=== PATIENT | male | born 1970 | race Caucasian/White ===

== ENCOUNTER 2019-05-14 07:31 | Inpatient (IN) | payer OTHER ==
[2019-05-14] MEDS ORDERED: SODIUM CHLORIDE 0.9% 1,000 ML IV STA (07:57)
[2019-05-14] MEDS ORDERED: ONDANSETRON 4 MG/2 ML VIAL IVP STA (07:57)
[2019-05-14] MEDS ORDERED: MORPHINE SULFATE 4 MG/ML SYRINGE IV STA (07:57)
[2019-05-14] MEDS ORDERED: FAMOTIDINE 20 MG/2 ML VIAL IV STA (07:58)
[2019-05-14] MEDS ORDERED: methylPREDNISolone SOD SUCCI 125 MG/2 ML VIAL IV STA (07:58)
[2019-05-14] MEDS ORDERED: diphenhydrAMINE 50 MG/ML 1 ML VIAL IVP STA (07:58)
[2019-05-14 08:33] LABS: Appearance,Urine Clear (Clear); Bilirubin,Urine Negative (Negative); Blood,Urine Moderate (Negative); Color,Urine Yellow; Glucose,Urine (UA) Negative (Negative); Ketones,Urine 1+ (Negative); Leukocyte Esterase,Urine Negative (Negative); Mucus,Urine Rare /hpf; Nitrite,Urine Negative (Negative); PH, Urine 7.5 (5.0-8.0); Protein,Urine 3+ (Negative); RBC,Urine 86 /hpf (0-5); Specific Gravity,Urine 1.014 (1.001-1.035); Urobilinogen,Urine <2.0 mg/dL (<2.0); WBC,Urine 1 /hpf (0-5)
[2019-05-14 08:38] LABS: Basophils % (A) 0 %; Eosinophils # (A) 0.1 k/uL (0-0.7); Eosinophils % (A) 1 %; HCT 46.5 % (39.0-53.0); HGB 15.5 gm/dL (13.0-17.5); Lymphocytes % (A) 8 %; MCH 31.5 pg (25.0-35.0); MCHC 33.4 g/dL (31.0-37.0); MCV 94.3 fL (80.0-100.0); Mean Platelet Volume 6.8; Monocytes # (A) 0.9 k/uL (0-1.0); Monocytes % (A) 8 %; Neutrophils # (A) 10.2 k/uL (1.3-7.7); Neutrophils % (A) 83 %; Platelet Count 238 k/uL (150-450); RBC 4.93 m/uL (4.30-5.90); RDW 13.5 % (11.5-15.5); WBC 12.4 k/uL (3.8-10.6)
[2019-05-14 08:39] LABS: ALT 30 U/L (21-72); AST 41 U/L (17-59); African American GFR (CKD) >90 (>60 ml/min/1.73 sqM); Albumin 4.2 g/dL (3.5-5.0); Alkaline Phosphatase 98 U/L (38-126); Amylase 53 U/L (30-110); Anion Gap 9 mmol/L; Blood Urea Nitrogen 17 mg/dL (9-20); Calcium 9.8 mg/dL (8.4-10.2); Carbon Dioxide 26 mmol/L (22-30); Chloride 102 mmol/L (98-107); Glucose 106 mg/dL (74-99); Lipase 60 U/L (23-300); Potassium 4.3 mmol/L (3.5-5.1); Sodium 137 mmol/L (137-145); Total Bilirubin 1.5 mg/dL (0.2-1.3); Total Protein 7.4 g/dL (6.3-8.2)
[2019-05-14] MEDS ORDERED: MORPHINE SULFATE 4 MG/ML SYRINGE IVP STA (08:43)
--- NOTE | 2019-05-14 08:46 | ED ---
Abdominal Pain HPI - General Chief Complaint: Abdominal Pain Stated Complaint: lower abdominal pain Time Seen by Provider: 05/14/19 07:50 Source: patient, RN notes reviewed Mode of arrival: ambulatory Limitations: no limitations - History of Present Illness Initial Comments: 48-year-old male presents emergency Department with chief complaint of abdominal pain. Patient states started last night worsened today. Patient states she has cramping, bloating is pending. Patient felt that he was constipated so he drinks multiple disease lactose intolerant he states he did have some diarrhea with no relief of symptoms. Patient has no dysuria no hematuria. Patient states that the pain is primarily lower abdomen. He has had a prior left inguinal hernia repair. He denies fever, chills, chest pain or shortness of breath. Patient states nothing really makes the pain feel better or worse at this time. - Related Data Home Medications Medication Instructions Recorded Confirmed Aspirin EC [Ecotrin] 325 mg PO DIRECTED 05/14/19 05/14/19 Cholecalciferol [Vitamin D3 (25 1,000 unit PO DAILY 05/14/19 05/14/19 Mcg = 1000 Iu)] Cyanocobalamin [Vitamin B-12] 500 mcg PO DAILY 05/14/19 05/14/19 Ibuprofen [Motrin Ib] 400 - 600 mg PO Q6H PRN 05/14/19 05/14/19 Omeprazole 20 mg PO DAILY 05/14/19 05/14/19 Allergies Allergy/AdvReac Type Severity Reaction Status Date / Time ciprofloxacin [From Cipro] Allergy Unknown Verified 05/14/19 08:38 Iodinated Contrast- Oral and Allergy Unknown Verified 05/14/19 08:38 IV Dye lactose AdvReac Unknown Verified 05/14/19 08:39 Review of Systems ROS Statement: Those systems with pertinent positive or pertinent negative responses have been documented in the HPI. ROS Other: All systems not noted in ROS Statement are negative. Past Medical History Additional Past Medical History / Comment(s): barrets esophagus History of Any Multi-Drug Resistant Organisms: None Reported Past Surgical History: Hernia Repair Past Psychological History: No Psychological Hx Reported Smoking Status: Current every day smoker Past Alcohol Use History: Daily Past Drug Use History: None Reported General Exam Limitations: no limitations General appearance: alert, in no apparent distress Head exam: Present: atraumatic, normocephalic, normal inspection Eye exam: Present: normal appearance, PERRL, EOMI. Absent: scleral icterus, conjunctival injection, periorbital swelling ENT exam: Present: normal exam, mucous membranes moist Neck exam: Present: normal inspection, full ROM. Absent: tenderness, meningismus, lymphadenopathy Respiratory exam: Present: normal lung sounds bilaterally. Absent: respiratory distress, wheezes, rales, rhonchi, stridor Cardiovascular Exam: Present: regular rate, normal rhythm, normal heart sounds. Absent: systolic murmur, diastolic murmur, rubs, gallop, clicks GI/Abdominal exam: Present: soft, tenderness (Moderate lower abdominal tenderness), guarding (Voluntary), normal bowel sounds. Absent: distended, r ebound, rigid Back exam: Absent: CVA tenderness (R), CVA tenderness (L) Neurological exam: Present: alert, oriented X3, CN II-XII intact Skin exam: Present: warm, dry, intact, normal color. Absent: rash Course Vital Signs 05/14/19 07:41 Temperature 98.5 F Pulse Rate 99 Respiratory 18 Rate Blood Pressure 143/92 O2 Sat by Pulse 98 Oximetry Medical Decision Making - Medical Decision Making 48-year-old male presented to emergency department for abdominal pain, cramping. Patient had lab work and CT CT shows perforated diverticulum. Patient has no history of diverticulitis. Patient was started on Zosyn. - Lab Data Result diagrams: 05/14/19 08:05 05/14/19 08:05 Lab Results 05/14/19 05/14/19 05/14/19 Range/Units 08:05 08:05 08:05 WBC 12.4 H (3.8-10.6) k/uL RBC 4.93 (4.30-5.90) m/uL Hgb 15.5 (13.0-17.5) gm/dL Hct 46.5 (39.0-53.0) % MCV 94.3 (80.0-100.0) fL MCH 31.5 (25.0-35.0) pg MCHC 33.4 (31.0-37.0) g/dL RDW 13.5 (11.5-15.5) % Plt Count 238 (150-450) k/uL Neutrophils % 83 % Lymphocytes % 8 % Monocytes % 8 % Eosinophils % 1 % Basophils % 0 % Neutrophils # 10.2 H (1.3-7.7) k/uL Lymphocytes # 1.0 (1.0-4.8) k/uL Monocytes # 0.9 (0-1.0) k/uL Eosinophils # 0.1 (0-0.7) k/uL Basophils # 0.0 (0-0.2) k/uL Sodium 137 (137-145) mmol/L Potassium 4.3 (3.5-5.1) mmol/L Chloride 102 (98-107) mmol/L Carbon Dioxide 26 (22-30) mmol/L Anion Gap 9 mmol/L BUN 17 (9-20) mg/dL Creatinine 1.08 (0.66-1.25) mg/dL Est GFR (CKD-EPI)AfAm >90 (>60 ml/min/1.73 sqM) Est GFR (CKD-EPI)NonAf 81 (>60 ml/min/1.73 sqM) Glucose 106 H (74-99) mg/dL Plasma Lactic Acid [place] 1.0 (0.7-2.0) mmol/L Calcium 9.8 (8.4-10.2) mg/dL Total Bilirubin 1.5 H (0.2-1.3) mg/dL AST 41 (17-59) U/L ALT 30 (21-72) U/L Alkaline Phosphatase 98 (38-126) U/L Total Protein 7.4 (6.3-8.2) g/dL Albumin 4.2 (3.5-5.0) g/dL Amylase 53 (30-110) U/L Lipase 60 (23-300) U/L Urine Color Urine Appearance (Clear) Urine pH (5.0-8.0) Ur Specific [place] (1.001-1.035) Urine Protein (Negative) Urine Glucose (UA) (Negative) Urine Ketones (Negative) Urine Blood (Negative) Urine Nitrite (Negative) Urine Bilirubin (Negative) Urine Urobilinogen (<2.0) mg/dL Ur Leukocyte Esterase (Negative) Urine RBC (0-5) /hpf Urine WBC (0-5) /hpf Urine Mucus (None) /hpf 05/14/19 Range/Units 08:05 WBC (3.8-10.6) k/uL RBC (4.30-5.90) m/uL Hgb (13.0-17.5) gm/dL Hct (39.0-53.0) % MCV (80.0-100.0) fL MCH (25.0-35.0) pg MCHC (31.0-37.0) g/dL RDW (11.5-15.5) % Plt Count (150-450) k/uL Neutrophils % % Lymphocytes % % Monocytes % % Eosinophils % % Basophils % % Neutrophils # (1.3-7.7) k/uL Lymphocytes # (1.0-4.8) k/uL Monocytes # (0-1.0) k/uL Eosinophils # (0-0.7) k/uL Basophils # (0-0.2) k/uL Sodium (137-145) mmol/L Potassium (3.5-5.1) mmol/L Chloride (98-107) mmol/L Carbon Dioxide (22-30) mmol/L Anion Gap mmol/L BUN (9-20) mg/dL Creatinine (0.66-1.25) mg/dL Est GFR (CKD-EPI)AfAm (>60 ml/min/1.73 sqM) Est GFR (CKD-EPI)NonAf (>60 ml/min/1.73 sqM) Glucose (74-99) mg/dL Plasma Lactic Acid [place] (0.7-2.0) mmol/L Calcium (8.4-10.2) mg/dL Total Bilirubin (0.2-1.3) mg/dL AST (17-59) U/L ALT (21-72) U/L Alkaline Phosphatase (38-126) U/L Total Protein (6.3-8.2) g/dL Albumin (3.5-5.0) g/dL Amylase (30-110) U/L Lipase (23-300) U/L Urine Color Yellow Urine Appearance Clear (Clear) Urine pH 7.5 (5.0-8.0) Ur Specific [place] 1.014 (1.001-1.035) Urine Protein 3+ H (Negative) Urine Glucose (UA) Negative (Negative) Urine Ketones 1+ H (Negative) Urine Blood Moderate H (Negative) Urine Nitrite Negative (Negative) Urine Bilirubin Negative (Negative) Urine Urobilinogen <2.0 (<2.0) mg/dL Ur Leukocyte Esterase Negative (Negative) Urine RBC 86 H (0-5) /hpf Urine WBC 1 (0-5) /hpf Urine Mucus Rare H (None) /hpf Disposition Clinical Impression: Diverticulitis of intestine with perforation Disposition: ADMITTED IP TO THIS HOSP Condition: Fair Referrals: None,Stated [Primary Care Provider] - 1-2 days
--- NOTE | 2019-05-14 08:54 | CT ---
EXAMINATION TYPE: CT abdomen pelvis w con DATE OF EXAM: 05/14/2019 COMPARISON: None HISTORY: lower abd pain CT DLP: 1659.2 mGycm Automated exposure control for dose reduction was used. CONTRAST: CT scan of the abdomen pelvis is performed with IV Contrast, patient injected with 100 mL of Isovue 3 00. FINDINGS- LUNG BASES-subsegmental right-sided consolidation heart is prominent.. LIVER/GB- No gross abnormality is appreciated. PANCREAS- No gross abnormality is seen. SPLEEN- No gross abnormality is seen. ADRENALS- No gross abnormality is seen. KIDNEYS/BLADDER- no hydronephrosis or nephrolithiasis. There are multiple hypodense lesions some of w hich are too small to characterize. The largest is seen in the right measuring approximately 3 cm. Th e larger lesions measure less than 10 Hounsfield units compatible simple cysts. Smaller lesions are i ndeterminate but likely related to simple cyst. BOWEL-there is wall thickening and diverticula the sigmoid colon with pericolonic inflammatory change . On image 70 single bubble free intraperitoneal air adjacent: Suggestive of a perforated diverticulu m. No abscess cavity. Prominence the small bowel loops may been the basis of ileus secondary to the i nflammatory changes in pelvis rather than obstruction correlate clinically.. Appendix normal. LYMPH NODES- No greater than 1cm abdominal or pelvic lymph nodes areappreciated. OSSEOUS STRUCTURES-hypertrophic and degenerative changes of the spine. Grade 1 anterolisthesis L3 on L4 with multilevel severe degenerative disc disease. Multilevel Schmorl's OTHER- aorta of normal caliber. No evidence of aneurysm. IMPRESSION- 1. Acute sigmoid diverticulitis with a single bubble of free air noted on image 70 compatible with a perforated diverticulum. No abscess. 2. Bilateral renal lesions most typical of cysts. 3. Dilated small bowel loops most likely the basis of a reactive ileus secondary to inflammatory byrd ges within the pelvis rather than obstruction correlate clinically. 4. Right basilar atelectasis favored over pneumonia.
[2019-05-14] MEDS ORDERED: PIPERACILLIN-TAZOBACTAM 3.375 GM in SODIUM CHLORIDE 0.9% 100 ML IVPB STA (08:56)
[2019-05-14] MEDS ORDERED: ONDANSETRON 4 MG/2 ML VIAL IVP PRN (09:03)
[2019-05-14] MEDS ORDERED: HYDROmorphone 0.5 MG/0.5 ML SYRINGE IVP PRN (09:03)
[2019-05-14] MEDS ORDERED: NALOXONE 0.4 MG/ML 1 ML VIAL IV PRN ×2 (09:03→16:24)
[2019-05-14] MEDS ORDERED: SODIUM CHLORIDE 0.9% 1,000 ML IV SCH (09:15)
[2019-05-14 11:58] VITALS: BMI 33.3
[2019-05-14] MEDS: HYDROmorphone 1 MG/ML 1 ML SYRINGE IVP PRN ×3 (12:08→19:38)
[2019-05-14] MEDS: PIPERACILLIN-TAZOBACTAM 3.375 GM in SODIUM CHLORIDE 0.9% 100 ML IVPB SCH (15:25)
[2019-05-14] MEDS ORDERED: MELATONIN 3 MG TABLET PO PRN (16:24)
[2019-05-14] MEDS ORDERED: ACETAMINOPHEN TAB 325 MG TAB PO PRN (16:24)
[2019-05-14] MEDS ORDERED: LORazepam 2 MG/ML INJ IV PRN ×3 (16:27)
[2019-05-14] MEDS ORDERED: NICOTINE POLACRILEX 2 MG GUM BUCCAL PRN (16:29)
--- NOTE | 2019-05-14 16:44 | P.HPIM ---
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 In the ER he underwent an extensive evaluation. On arrival he is on his blood pressure of 143/92 and a pulse of 99. Laboratory analysis showed a white blood cell count of 12.4 and an elevated bilirubin at 1.5. Urinalysis showed moderate blood in his urine which is chronic per patient. CT abdomen and pelvis showed acute sigmoid diverticulitis with one level of free air as well as bilateral renal cysts. He was started on IV fluids, pain medications, antiemetics, and Zosyn in the emergency department. Dr. Hagan of surgery was contacted. He was admitted for further monitoring and care. Patient seen and examined at bedside. He states yesterday at work he started having sudden onset belly pain. He just starts it is quick and sharp in nature. Initially it happened 3 times over about a hour and a half. Of time. It was in his left and right lower quadrant and suprapubic area. He then went home and continued to have abdominal pressure and bloating. It increased in severity and became more frequent and constant. He then started having some nausea. He had chills overnight last night associated with some rigors. He reports that he is feeling achy all over and the Flu. He woke up at 1 AM and tried to fall back asleep. This morning everything seemed more severe and he came to the hospital. He denies any constipation or diarrhea. He denies any blood in the stool. He has never had a colonoscopy. He states that he has chronic intermittent numbness and tingling in his arms and legs secondary to his relapsing remitting multiple sclerosis. He has no insurance and moved to the area recently. He does not have a PCP. Review of Systems Pertinent positives and negatives as discussed in HPI, a complete review of syst ems was performed and all other systems are negative. 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 - Past Family History Mother Additional Family Medical History / Comment(s): ESRD, lupus, scleroderma, thin basement membrane disease Father Additional Family Medical History / Comment(s): Interstitial lung disease Medications and Allergies Home Medications Medication Instructions Recorded Confirmed Type Aspirin EC [Ecotrin] 325 mg PO DIRECTED 05/14/19 05/14/19 History Cholecalciferol [Vitamin D3 (25 1,000 unit PO DAILY 05/14/19 05/14/19 History Mcg = 1000 Iu)] Cyanocobalamin [Vitamin B-12] 500 mcg PO DAILY 05/14/19 05/14/19 History Ibuprofen [Motrin Ib] 400 - 600 mg PO Q6H PRN 05/14/19 05/14/19 History RX: Omeprazole 20 mg PO DAILY 05/14/19 05/14/19 History Allergies Allergy/AdvReac Type Severity Reaction Status Date / Time ciprofloxacin [From Cipro] Allergy Unknown Verified 05/14/19 08:38 Iodinated Contrast- Oral and Allergy Unknown Verified 05/14/19 08:38 IV Dye lactose AdvReac Unknown Verified 05/14/19 08:39 Physical Exam Osteopathic Statement: *. No significant issues noted on an osteopathic structural exam other than those noted in the History and Physical/Consult. Vitals: Vital Signs Temp Pulse Pulse Resp BP BP Pulse Ox 05/14/19 14:52 98.0 F 57 L 14 129/79 94 L 05/14/19 11:48 98.3 F 71 16 139/88 95 05/14/19 11:46 99.4 F 83 18 124/83 94 L 05/14/19 10:58 83 18 124/83 94 L 05/14/19 10:10 99.4 F 84 18 142/81 94 L 05/14/19 07:41 98.5 F 99 18 143/92 98 Intake and Output 05/14/19 05/14/19 05/14/19 06:59 14:59 22:59 Other: Voiding Method Toilet Toilet Weight 117.934 kg General: non toxic, mild distress, appears at stated age, normal weight Derm: no unusual rashes/lesions no unusual ecchymoses, warm, dry Head: atraumatic, normocephalic, symmetric Eyes: EOMI, no lid lag, anicteric sclera, pupils equal round reactive to light ENT: Nose and ears atraumatic, no thrush, no pharyngeal erythema Neck: No thyromegaly, no cervical lymphadenopathy, trachea midline, supple Mouth: no lip lesion, mucus membranes dry Cardiovascular: S1S2 reg, no murmur, positive posterior tibial pulse bilateral, no edema, capillary refill less than 2 seconds Lungs: CTA bilateral, no rhonchi, no rales , no accessory muscle use Abdominal: soft, + tender to palpation RLQ, LLQ, no guarding, no appreciable organomegaly, hypoactive bowel sounds, no rebound Ext: no gross muscle atrophy, muscle strength 5 out of 5 in all 4 extremities grossly, no contractures, Neuro: CN II-XI grossly intact, light touch intact all 4 extremities, finger to nose within normal limits, Psych: Alert, oriented, appropriate affect Results CBC & Chem 7: 05/14/19 08:05 05/14/19 08:05 Labs: Abnormal Lab Results - Last 24 Hours (Table) 05/14/19 05/14/19 05/14/19 Range/Units 08:05 08:05 08:05 WBC 12.4 H (3.8-10.6) k/uL Neutrophils # 10.2 H (1.3-7.7) k/uL Glucose 106 H (74-99) mg/dL Total Bilirubin 1.5 H (0.2-1.3) mg/dL Urine Protein 3+ H (Negative) Urine Ketones 1+ H (Negative) Urine Blood Moderate H (Negative) Urine RBC 86 H (0-5) /hpf Urine Mucus Rare H (None) /hpf CT scan - abdomen: report reviewed CT scan - pelvis: report reviewed Thrombosis Risk Factor Assmnt - DVT/VTE Prophylaxis DVT/VTE Prophylaxis: Pharmacologic Prophylaxis ordered - Choose All That Apply Any of the Below Risk Factors Present?: Yes Each Factor Represents 1 point: Age 41-60 years, Obesity (BMI >25) Other Risk Factors: No Other congenital or acquired thrombophilia - If yes, enter type in comment: No Thrombosis Risk Factor Assessment Total Risk Factor Score: 2 Thrombosis Risk Factor Assessment Level: Low Risk Assessment and Plan Assessment: Acute sigmoid diverticulitis with microperforation - IVF - Zosyn - surgery consult - NPO: ice chips - pain control - antiemetics - colonoscopy as outpatient Tobacco abuse - cessation - nicotine replacement ETOH abuse - cessation - CIWA - thiamine, folic acid Hematuria - chronic - due to thin basement membrane disease The patient is admitted with an anticipated greater than 2 midnight stay for evaluation of Acute diverticulitis. Surrogate decision-maker: - curt CODE STATUS: Full DVT prophylaxis: Lovenox Discussed with: Patient, nursing, ED physician Anticipated discharge date: 3-[address]: home A total of 65 minutes was spent on the care of this complex patient more than 50% of the time was spent in counseling and care coordination.
[2019-05-14] MEDS: NICOTINE 21MG/24HR PATCH TRANSDERM SCH (17:05)
[2019-05-14] MEDS: THIAMINE 100 MG TAB PO SCH ×2 (17:05→17:08)
[2019-05-14] MEDS: DEXTROSE 5%-0.45% NACL 1,000 ML IV SCH (17:06)
[2019-05-14] MEDS: PANTOPRAZOLE 40 MG/10 ML VIAL IVP SCH (19:38)
[2019-05-15] MEDS: PIPERACILLIN-TAZOBACTAM 3.375 GM in SODIUM CHLORIDE 0.9% 100 ML IVPB SCH ×4 (00:52→23:51)
[2019-05-15] MEDS: HYDROmorphone 1 MG/ML 1 ML SYRINGE IVP PRN ×5 (00:52→20:37)
[2019-05-15] MEDS: DEXTROSE 5%-0.45% NACL 1,000 ML IV SCH ×3 (00:52→15:39)
[2019-05-15] MEDS: THIAMINE 100 MG TAB PO SCH ×2 (07:31→16:33)
[2019-05-15] MEDS: FOLIC ACID 1 MG TAB PO SCH (07:31)
[2019-05-15] MEDS: PANTOPRAZOLE 40 MG/10 ML VIAL IVP SCH (07:31)
[2019-05-15] MEDS: ENOXAPARIN 40 MG/0.4 ML SYRINGE SQ SCH (07:32)
[2019-05-15] MEDS: NICOTINE 21MG/24HR PATCH TRANSDERM SCH (07:32)
[2019-05-15 08:51] LABS: HGB 15.8 gm/dL (13.0-17.5); MCH 32.1 pg (25.0-35.0); MCHC 33.6 g/dL (31.0-37.0); MCV 95.4 fL (80.0-100.0); Mean Platelet Volume 7.3; Platelet Count 272 k/uL (150-450); RBC 4.92 m/uL (4.30-5.90); RDW 14.8 % (11.5-15.5); WBC 18.2 k/uL (3.8-10.6)
[2019-05-15 08:59] LABS: African American GFR (CKD) >90 (>60 ml/min/1.73 sqM); Anion Gap 8 mmol/L; Blood Urea Nitrogen 20 mg/dL (9-20); Carbon Dioxide 26 mmol/L (22-30); Chloride 103 mmol/L (98-107); Glucose 109 mg/dL (74-99); Potassium 4.2 mmol/L (3.5-5.1); Sodium 137 mmol/L (137-145)
--- NOTE | 2019-05-15 10:07 | P.PN ---
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 In the ER he underwent an extensive evaluation. On arrival he is on his blood pressure of 143/92 and a pulse of 99. Laboratory analysis showed a white blood cell count of 12.4 and an elevated bilirubin at 1.5. Urinalysis showed moderate blood in his urine which is chronic per patient. CT abdomen and pelvis showed acute sigmoid diverticulitis with one level of free air as well as bilateral renal cysts. He was started on IV fluids, pain medications, antiemetics, and Zosyn in the emergency department. Dr. Hagan of surgery was contacted. He was admitted for further monitoring and care. He was maintained NPO, Zosyn was continued, and he was started on IVF. The morning after admission his WBC had increased significantly to 18.2. He had clinical improvement. Patient seen and examined at bedside. His pain is slightly better today, nausea resolved. Feeling better than yesterday per patient surgeon came in this morning and advanced. Objective - Vital Signs Vital signs: Vital Signs Temp 97.6 F 05/15/19 07:00 Pulse 67 05/15/19 07:00 Resp 16 05/15/19 07:00 BP 143/83 05/15/19 07:00 Pulse Ox 97 05/15/19 07:00 Intake & Output 05/14/19 05/15/19 05/15/19 18:59 06:59 18:59 Intake Total 1250 Balance 1250 Weight 117.934 kg Intake: Intake, IV Titration 1250 Amount Dextrose 5%-0.45% NaCl 1, 1250 000 ml @ 125 mls/hr IV . Q8H [facility] Rx#:[id number] Other: Voiding Method Toilet Toilet Toilet # Voids 2 2 - Exam General: ill appearing, no distress, appears at stated age Derm: warm, dry Head: atraumatic, normocephalic, symmetric Eyes: EOMI, no lid lag, anicteric sclera Mouth: no lip lesion, mucus membranes moist Cardiovascular: S1S2 reg, no murmur, positive posterior tibial pulse bilateral, Lungs: CTA bilateral, no rhonchi, no rales , no accessory muscle use Abdominal: soft, +tender to palpation LUQ and LLQ, no guarding, no appreciable organomegaly Ext: no gross muscle atrophy, no edema, no contractures Neuro: CN II-XI grossly intact, no focal neuro deficits Psych: Alert, oriented, appropriate affect - Labs CBC & Chem 7: 05/15/19 08:27 05/15/19 08:27 Labs: Abnormal Lab Results - Last 24 Hours (Table) 05/15/19 05/15/19 Range/Units 08:27 08:27 WBC 18.2 H (3.8-10.6) k/uL Glucose 109 H (74-99) mg/dL Assessment and Plan Assessment: Acute sigmoid diverticulitis with microperforation - IVF - Zosyn - surgery recs - pain control - antiemetics - colonoscopy as outpatient Tobacco abuse - cessation - nicotine replacement ETOH abuse - cessation - CIWA - thiamine, folic acid Hematuria - chronic - due to thin basement membrane disease Social stressor: no insurance - [facility] referral on Discharge DVT prophylaxis: Lovenox Discussed with: Patient, nursing Anticipated discharge date: 2-[address]: home A total of 35 minutes was spent on the care of this complex patient more than 50% of the time was spent in counseling and care coordination.
--- NOTE | 2019-05-15 11:14 | P.GSCN ---
History of Present Illness Consult date: 05/15/19 History of present illness: 48-year-old male presented to the emergency department with complaints of significant abdominal pain. He states that the pain started approximately 12 hours prior to his arrival to the emergency department. He states the pain is in his lower abdomen and he has never had this pain previously. He states that the pain began suddenly. He complained of mild nausea but denied any emesis episodes. On workup in the emergency department, CT of the abdomen and pelvis was performed that did show diverticulitis with a notable microperforation. He w as admitted and started on antibiotics with Zosyn. He states that pain has decreased since his admission and he has started to have a significant amount of flatus. He denies any fevers, chills, chest pain or shortness of breath. He denies ever having a colonoscopy in the past. 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 History of Any Multi-Drug Resistant Organisms: None Reported Past Surgical History: Hernia Repair Past Anesthesia/Blood Transfusion Reactions: No Reported Reaction Past Psychological History: No Psychological Hx Reported Smoking Status: Current every day smoker Past Alcohol Use History: Daily Past Drug Use History: None Reported - Past Family History Mother Additional Family Medical History / Comment(s): ESRD, lupus, scleroderma, thin basement membrane disease Father Additional Family Medical History / Comment(s): Interstitial lung disease Medications and Allergies Home Medications Medication Instructions Recorded Confirmed Type Aspirin EC [Ecotrin] 325 mg PO DIRECTED 05/14/19 05/14/19 History Cholecalciferol [Vitamin D3 (25 1,000 unit PO DAILY 05/14/19 05/14/19 History Mcg = 1000 Iu)] Cyanocobalamin [Vitamin B-12] 500 mcg PO DAILY 05/14/19 05/14/19 History Ibuprofen [Motrin Ib] 400 - 600 mg PO Q6H PRN 05/14/19 05/14/19 History Omeprazole 20 mg PO DAILY 05/14/19 05/14/19 History Allergies Allergy/AdvReac Type Severity Reaction Status Date / Time ciprofloxacin [From Cipro] Allergy Unknown Verified 05/14/19 08:38 Iodinated Contrast- Oral and Allergy Unknown Verified 05/14/19 08:38 IV Dye lactose AdvReac Unknown Verified 05/14/19 08:39 Surgical - Exam Osteopathic Statement: *. No significant issues noted on an osteopathic structural exam other than those noted in the History and Physical/Consult. Vital Signs Temp Pulse Resp BP Pulse Ox 98.5 F 99 18 143/92 98 05/14/19 07:41 05/14/19 07:41 05/14/19 07:41 05/14/19 07:41 05/14/19 07:41 - General well nourished, no distress - Eyes PERRL - ENT no hearing loss - Neck trachea midline - Respiratory no difficulty with respiration - Abdomen soft, tender to palpation in the suprapubic region, nondistended, no rebound, no guarding - Psychiatric oriented to time, oriented to person, oriented to place Results - Labs 05/15/19 08:27 05/15/19 08:27 Abnormal Lab Results - Last 24 Hours (Table) 05/15/19 05/15/19 Range/Units 08:27 08:27 WBC 18.2 H (3.8-10.6) k/uL Glucose 109 H (74-99) mg/dL Diabetes panel 05/15/19 Range/Units 08:27 Sodium 137 (137-145) mmol/L Potassium 4.2 (3.5-5.1) mmol/L Chloride 103 (98-107) mmol/L Carbon Dioxide 26 (22-30) mmol/L BUN 20 (9-20) mg/dL Creatinine 0.98 (0.66-1.25) mg/dL Glucose 109 H (74-99) mg/dL Calcium 9.0 (8.4-10.2) mg/dL Calcium panel 05/15/19 Range/Units 08:27 Calcium 9.0 (8.4-10.2) mg/dL Pituitary panel 05/15/19 Range/Units 08:27 Sodium 137 (137-145) mmol/L Potassium 4.2 (3.5-5.1) mmol/L Chloride 103 (98-107) mmol/L Carbon Dioxide 26 (22-30) mmol/L BUN 20 (9-20) mg/dL Creatinine 0.98 (0.66-1.25) mg/dL Glucose 109 H (74-99) mg/dL Calcium 9.0 (8.4-10.2) mg/dL Adrenal panel 05/15/19 Range/Units 08:27 Sodium 137 (137-145) mmol/L Potassium 4.2 (3.5-5.1) mmol/L Chloride 103 (98-107) mmol/L Carbon Dioxide 26 (22-30) mmol/L BUN 20 (9-20) mg/dL Creatinine 0.98 (0.66-1.25) mg/dL Glucose 109 H (74-99) mg/dL Calcium 9.0 (8.4-10.2) mg/dL - Imaging CT scan - abdomen: report reviewed CT scan - pelvis: report reviewed Assessment and Plan (1) Diverticulitis of intestine with perforation Narrative/Plan: 48-year-old male with diverticulitis and microperforation - Patient is on antibiotics and these appeared to be improving the patient's symptoms. Pain is resolving and he is beginning to have flatus. Continue antibiotics - Will begin the patient on a clear liquid diet - I did recommend colonoscopy in 6-8 weeks as an outpatient for evaluation of diverticulitis or any other colonic etiology - I will closely continue to monitor the patient for any further surgical recommendations Thank you for this consultation, I look forward in providing in this patient's care. Current Visit: Yes Status: Acute Code(s): K57.80 - DVTRCLI OF INTEST, PART UNSP, W PERF AND ABSCESS W/O BLEED SNOMED Code(s): 764582843
[2019-05-16] MEDS: DEXTROSE 5%-0.45% NACL 1,000 ML IV SCH ×4 (01:57→23:26)
[2019-05-16] MEDS: HYDROmorphone 1 MG/ML 1 ML SYRINGE IVP PRN ×3 (06:13→17:06)
[2019-05-16 09:26] LABS: HCT 40.2 % (39.0-53.0); HGB 13.2 gm/dL (13.0-17.5); MCH 31.5 pg (25.0-35.0); MCHC 32.8 g/dL (31.0-37.0); Mean Platelet Volume 7.5; Platelet Count 216 k/uL (150-450); RBC 4.19 m/uL (4.30-5.90); RDW 14.1 % (11.5-15.5); WBC 7.8 k/uL (3.8-10.6)
[2019-05-16 09:42] LABS: African American GFR (CKD) >90 (>60 ml/min/1.73 sqM); Anion Gap 4 mmol/L; Blood Urea Nitrogen 18 mg/dL (9-20); Calcium 8.3 mg/dL (8.4-10.2); Carbon Dioxide 27 mmol/L (22-30); Chloride 107 mmol/L (98-107); Glucose 116 mg/dL (74-99); Potassium 3.6 mmol/L (3.5-5.1); Sodium 138 mmol/L (137-145)
[2019-05-16] MEDS: ENOXAPARIN 40 MG/0.4 ML SYRINGE SQ SCH (09:45)
[2019-05-16] MEDS: NICOTINE 21MG/24HR PATCH TRANSDERM SCH (09:48)
[2019-05-16] MEDS: THIAMINE 100 MG TAB PO SCH ×2 (09:48→17:06)
[2019-05-16] MEDS: FOLIC ACID 1 MG TAB PO SCH (09:48)
[2019-05-16] MEDS: PANTOPRAZOLE 40 MG/10 ML VIAL IVP SCH (09:49)
[2019-05-16] MEDS: PIPERACILLIN-TAZOBACTAM 3.375 GM in SODIUM CHLORIDE 0.9% 100 ML IVPB SCH ×3 (09:49→23:25)
[2019-05-16] MEDS ORDERED: POTASSIUM CHLORIDE ER 20 MEQ TAB.ER PO STA (10:19)
--- NOTE | 2019-05-16 10:23 | P.PN ---
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 In the ER he underwent an extensive evaluation. On arrival he is on his blood pressure of 143/92 and a pulse of 99. Laboratory analysis showed a white blood cell count of 12.4 and an elevated bilirubin at 1.5. Urinalysis showed moderate blood in his urine which is chronic per patient. CT abdomen and pelvis showed acute sigmoid diverticulitis with one level of free air as well as bilateral renal cysts. He was started on IV fluids, pain medications, antiemetics, and Zosyn in the emergency department. Dr. Hagan of surgery was contacted. He was admitted for further monitoring and care. He was maintained NPO, Zosyn was continued, and he was started on IVF. The morning after admission his WBC had increased significantly to 18.2. He had clinical improvement. He was started on a clear liquid diet on 05/15 and was able to tolerate. Patient seen and examined at bedside. Went almost 12 hours without pain medications and now pain is worse. Tolerated chicken broth yesterday with increased gas. No nausea, no diarrhea this morning. No chest pain, SOB D/W patient if pain is improved today then can trial full liquid diet. Objective - Vital Signs Vital signs: Vital Signs Temp 97.8 F 05/16/19 07:05 Pulse 56 L 05/16/19 07:05 Resp 15 05/16/19 07:05 BP 151/82 05/16/19 07:05 Pulse Ox 97 05/16/19 07:05 Intake & Output 05/15/19 05/16/19 05/16/19 18:59 06:59 18:59 Intake Total 240 Balance 240 Intake: Oral 240 Other: Voiding Method Toilet Toilet # Voids 4 0 - Exam General: ill appearing, no distress, appears at stated age Derm: warm, dry Head: atraumatic, normocephalic, symmetric Eyes: EOMI, no lid lag, anicteric sclera Mouth: no lip lesion, mucus membranes moist Cardiovascular: S1S2 reg, no murmur, positive posterior tibial pulse bilateral, Lungs: Decreased bs bilateral, no rhonchi, no rales , no accessory muscle use Abdominal: soft, +tender to palpation RLQ and LLQ, no guarding, no appreciable organomegaly Ext: no gross muscle atrophy, no edema, no contractures Neuro: CN II-XI grossly intact, no focal neuro deficits Psych: Alert, oriented, appropriate affect - Labs CBC & Chem 7: 05/16/19 08:23 05/16/19 08:23 Labs: Abnormal Lab Results - Last 24 Hours (Table) 05/16/19 05/16/19 Range/Units 08:23 08:23 RBC 4.19 L (4.30-5.90) m/uL Glucose 116 H (74-99) mg/dL Calcium 8.3 L (8.4-10.2) mg/dL Microbiology - Last 24 Hours (Table) 05/14/19 14:18 Blood Culture - Preliminary Blood No Growth after 24 hours Assessment and Plan Assessment: Acute sigmoid diverticulitis with microperforation - IVF - Zosyn - surgery recs appreciated - pain control: encourage oral pain meds - antiemetics - colonoscopy as outpatient in 6 weeks Tobacco abuse - cessation - nicotine replacement ETOH abuse - cessation - CIWA - thiamine, folic acid Hematuria - chronic - due to thin basement membrane disease Social stressor: no insurance - [facility] on Discharge DVT prophylaxis: Lovenox Discussed with: Patient, nursing Anticipated discharge date: 1-[address]: home A total of 25 minutes was spent on the care of this complex patient more than 50% of the time was spent in counseling and care coordination.
[2019-05-16] MEDS: HYDROcodone/APAP 5-325MG 1 EACH TAB PO PRN ×2 (12:12→22:09)
--- NOTE | 2019-05-16 13:43 | P.PN ---
Subjective Progress Note Date: 05/16/19 Patient seen and examined at bedside. States he continues to have abdominal pain and continues to have a significant amount of flatus. He denies nausea or vomiting. He is tolerating clear liquid diet. He does believe that his abdominal distention is decreasing. Objective - Vital Signs Vital signs: Vital Signs Temp 97.8 F 05/16/19 07:05 Pulse 56 L 05/16/19 08:15 Resp 15 05/16/19 08:15 BP 151/82 05/16/19 07:05 Pulse Ox 97 05/16/19 07:05 Intake & Output 05/15/19 05/16/19 05/16/19 18:59 06:59 18:59 Intake Total 240 1625 Balance 240 1625 Intake: Intake, IV Titration 1100 Amount Dextrose 5%-0.45% NaCl 1, 1000 000 ml @ 125 mls/hr IV . Q8H [facility] Rx#:[id number] Piperacillin-Tazobactam 3 100 .375 gm In Sodium Chloride 0.9% 100 ml @ 25 mls/hr IVPB Q8HR [facility] Rx# :[id number] Oral 240 525 Other: Voiding Method Toilet Toilet Toilet # Voids 4 0 3 - Constitutional General appearance: Present: cooperative, no acute distress - Respiratory Details: no difficulty with respiration - Gastrointestinal Gastrointestinal Comment(s): Soft, mild tenderness to palpation in the suprapubic region, nondistended, no rebound, no guarding - Psychiatric Psychiatric: Present: A&O x's 3 - Labs CBC & Chem 7: 05/16/19 08:23 05/16/19 08:23 Labs: Abnormal Lab Results - Last 24 Hours (Table) 05/16/19 05/16/19 Range/Units 08:23 08:23 RBC 4.19 L (4.30-5.90) m/uL Glucose 116 H (74-99) mg/dL Calcium 8.3 L (8.4-10.2) mg/dL Microbiology - Last 24 Hours (Table) 05/14/19 14:18 Blood Culture - Preliminary Blood No Growth after 24 hours Assessment and Plan (1) Diverticulitis of intestine with perforation Narrative/Plan: 48-year-old male with diverticulitis and microperforation - Patient is on antibiotics and these appeared to be improving the patient's symptoms. Pain is resolving and he is beginning to have flatus. Continue antibiotics. leukocytosis improved - Patient has been advanced to full liquid diet. I did recommend moving very slowly. - I did recommend colonoscopy in 6-8 weeks as an outpatient for evaluation of diverticulitis or any other colonic etiology - I will closely continue to monitor the patient for any further surgical recommendations Current Visit: Yes Status: Acute Code(s): K57.80 - DVTRCLI OF INTEST, PART UNSP, W PERF AND ABSCESS W/O BLEED SNOMED Code(s): 309241629
[2019-05-17] MEDS ORDERED: MAG HYDROX/AL HYDROX/SIMETH 30 ML CUP PO PRN (05:52)
[2019-05-17] MEDS: HYDROcodone/APAP 5-325MG 1 EACH TAB PO PRN ×3 (05:56→19:12)
[2019-05-17] MEDS: FOLIC ACID 1 MG TAB PO SCH (08:05)
[2019-05-17] MEDS: NICOTINE 21MG/24HR PATCH TRANSDERM SCH (08:05)
[2019-05-17] MEDS: THIAMINE 100 MG TAB PO SCH ×2 (08:06→16:33)
[2019-05-17] MEDS: ENOXAPARIN 40 MG/0.4 ML SYRINGE SQ SCH (08:46)
[2019-05-17] MEDS: DEXTROSE 5%-0.45% NACL 1,000 ML IV SCH (08:51)
[2019-05-17] MEDS: PANTOPRAZOLE 40 MG/10 ML VIAL IVP SCH (08:52)
[2019-05-17] MEDS: PIPERACILLIN-TAZOBACTAM 3.375 GM in SODIUM CHLORIDE 0.9% 100 ML IVPB SCH ×3 (08:52→23:50)
--- NOTE | 2019-05-17 10:33 | P.PN ---
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 In the ER he underwent an extensive evaluation. On arrival he is on his blood pressure of 143/92 and a pulse of 99. Laboratory analysis showed a white blood cell count of 12.4 and an elevated bilirubin at 1.5. Urinalysis showed moderate blood in his urine which is chronic per patient. CT abdomen and pelvis showed acute sigmoid diverticulitis with one level of free air as well as bilateral renal cysts. He was started on IV fluids, pain medications, antiemetics, and Zosyn in the emergency department. Dr. Hagan of surgery was contacted. He was admitted for further monitoring and care. He was maintained NPO, Zosyn was continued, and he was started on IVF. The morning after admission his WBC had increased significantly to 18.2. He had clinical improvement. He was started on a clear liquid diet on 05/15 and was able to tolerate. He was not able to try a full liquid diet as he is lactulose intolerant. His WBC count resolved. Patient seen and examined at bedside. Pain is much improved today, bloating is better, felt very hungry yesterday, passing gas, no chest pain or shortness of breath. Does not like anything besides broth on clear liquid diet, not able to have anything off full liquid diet due to lactose intolerance, does not like applesauce. Patient will try thinned oatmeal today. Objective - Vital Signs Vital signs: Vital Signs Temp 97.9 F 05/17/19 08:47 Pulse 62 05/17/19 08:47 Resp 14 05/17/19 08:47 BP 173/93 05/17/19 08:47 Pulse Ox 96 05/17/19 08:47 Intake & Output 05/16/19 05/17/19 05/17/19 18:59 06:59 18:59 Intake Total 1625 Balance 1625 Intake: Intake, IV Titration 1100 Amount Dextrose 5%-0.45% NaCl 1, 1000 000 ml @ 125 mls/hr IV . Q8H [facility] Rx#:[id number] Piperacillin-Tazobactam 3 100 .375 gm In Sodium Chloride 0.9% 100 ml @ 25 mls/hr IVPB Q8HR [facility] Rx# :[id number] Oral 525 Other: Voiding Method Toilet Toilet # Voids 3 1 - Exam General: non toxic, no distress, appears at stated age Derm: warm, dry Head: atraumatic, normocephalic, symmetric Eyes: EOMI, no lid lag, anicteric sclera Mouth: no lip lesion, mucus membranes moist Cardiovascular: S1S2 reg, no murmur, positive posterior tibial pulse bilateral, Lungs: CTA bilateral, no rhonchi, no rales , no accessory muscle use Abdominal: soft, + TTP suprapubic, no guarding, no appreciable organomegaly Ext: no gross muscle atrophy, no edema, no contractures Neuro: CN II-XI grossly intact, no focal neuro deficits Psych: Alert, oriented, appropriate affect - Labs CBC & Chem 7: 05/16/19 08:23 05/16/19 08:23 Labs: Microbiology - Last 24 Hours (Table) 05/14/19 14:18 Blood Culture - Preliminary Blood No Growth after 48 hours Assessment and Plan Assessment: Acute sigmoid diverticulitis with microperforation - IVF stopped encouraged oral water - Zosyn - surgery recs appreciated - pain control: encourage oral pain meds - antiemetics - colonoscopy as outpatient in 6 weeks - Full liwuids Elevate blood pressure without diagnosis of HTN - monitor - stop IVF Tobacco abuse - cessation - nicotine replacement ETOH abuse - cessation - CIWA - thiamine, folic acid Hematuria - chronic - due to thin basement membrane disease Social stressor: no insurance - [facility] referral on Discharge DVT prophylaxis: Lovenox Discussed with: Patient, nursing Anticipated discharge date: 1-[address]: home A total of 25 minutes was spent on the care of this complex patient more than 50% of the time was spent in counseling and care coordination.
[2019-05-18] MEDS: HYDROcodone/APAP 5-325MG 1 EACH TAB PO PRN ×3 (03:46→14:15)
[2019-05-18 04:14] VITALS: TEMP 97.9
[2019-05-18 07:03] VITALS: BP 169/91; PULSE 55; RESP 16
[2019-05-18] MEDS: PANTOPRAZOLE 40 MG/10 ML VIAL IVP SCH (09:22)
[2019-05-18] MEDS: PIPERACILLIN-TAZOBACTAM 3.375 GM in SODIUM CHLORIDE 0.9% 100 ML IVPB SCH (09:22)
[2019-05-18] MEDS: NICOTINE 21MG/24HR PATCH TRANSDERM SCH (09:22)
[2019-05-18] MEDS: FOLIC ACID 1 MG TAB PO SCH (09:22)
[2019-05-18] MEDS: THIAMINE 100 MG TAB PO SCH (09:22)
[2019-05-18] MEDS: ENOXAPARIN 40 MG/0.4 ML SYRINGE SQ SCH (09:23)
--- NOTE | 2019-05-18 12:53 | P.PN ---
Subjective Progress Note Date: 05/18/19 Patient seen and examined at bedside. States his abdominal pain is much improved. He is having bowel movements and flatus. Denies nausea vomiting. Tolerating full liquids in the form of oatmeal. Objective - Vital Signs Vital signs: Vital Signs Temp 97.9 F 05/18/19 07:00 Pulse 55 L 05/18/19 07:00 Resp 16 05/18/19 07:00 BP 169/91 05/18/19 07:00 Pulse Ox 97 05/18/19 07:00 Intake & Output 05/17/19 05/18/19 05/18/19 18:59 06:59 18:59 Intake Total 100 Balance 100 Intake: Intake, IV Titration 100 Amount Piperacillin-Tazobactam 3 100 .375 gm In Sodium Chloride 0.9% 100 ml @ 25 mls/hr IVPB Q8HR [facility] Rx# :[id number] Other: Voiding Method Toilet Toilet # Voids 1 - Constitutional General appearance: Present: cooperative, no acute distress - Gastrointestinal Gastrointestinal Comment(s): Soft, nontender, nondistended, no rebound, no guarding - Psychiatric Psychiatric: Present: A&O x's 3 - Labs CBC & Chem 7: 05/16/19 08:23 05/16/19 08:23 Labs: Microbiology - Last 24 Hours (Table) 05/14/19 14:18 Blood Culture - Preliminary Blood No Growth after 72 hours Assessment and Plan (1) Diverticulitis of intestine with perforation Narrative/Plan: 48-year-old male with diverticulitis and microperforation - Patient is on antibiotics and these appeared to be improving the patient's symptoms. Continue antibiotics. leukocytosis improved - Okay to advance to soft diet as patient appears clinically improved - I did recommend colonoscopy in 6-8 weeks as an outpatient for evaluation of diverticulitis or any other colonic etiology - I will closely continue to monitor the patient for any further surgical recommendations Current Visit: Yes Status: Acute Code(s): K57.80 - DVTRCLI OF INTEST, PART U NSP, W PERF AND ABSCESS W/O BLEED SNOMED Code(s): 303615312
--- NOTE | 2019-05-18 14:22 | P.DS ---
Providers Date of admission: 05/14/19 10:02 Expected date of discharge: 05/18/19 Attending physician: Astrid Vail DO Consults: 05/14/19 09:23 Consult Physician Urgent Consulting Provider: Monae Hagan Consult Reason/Comments: Diverticulitis Do you want consulting provider notified?: Yes Primary care physician: Stated None Hospital Course: Discharge Diagnosis: Diverticulitis with microperforation Elevated blood pressures without diagnosis of hypertension Tobacco abuse Alcohol abuse Chronic hematuria secondary to thin basement membrane disease Hospital Course: Patient is a 48-year-old male with a past medical history of relapsing remitting multiple sclerosis, tobacco abuse, EtOH misuse, and 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 In the ER he underwent an extensive evaluation. On arrival he is on his blood pressure of 143/92 and a pulse of 99. Laboratory analysis showed a white blood cell count of 12.4 and an elevated bilirubin at 1.5. Urinalysis showed moderate blood in his urine which is chronic per patient. CT abdomen and pelvis showed acute sigmoid diverticulitis with one punctuate area of free air as well as bilateral renal cysts. He was started on IV fluids, pain medications, antiemetics, and Zosyn in the emergency department. Dr. Hagan of surgery was contacted. He was admitted for further monitoring and care. He was maintained NPO, Zosyn was continued, and he was started on IVF. The morning after admission his WBC had increased significantly to 18.2. He had clinical improvement. He was started on a clear liquid diet on 05/15 and was able to tolerate. He was not able to try a full liquid diet as he is lactulose intolerant but was able to tolerate oatmeal. His WBC count resolved. He was able to tolerate a soft diet on 05/18. His pain was much improved. He was determined stable for discharge home. He will complete an additional 7 days of Bactrim and metronidazole, this is secondary to a Cipro ALLERGY. [facility] as [facility]. He will also follow-up with Dr. Hagan for colonoscopy in 6-8 weeks. Was given a prescription for Van 22 tablets. Patient seen and examined at bedside. Vital signs reviewed and stable. General: non toxic, no distress, appears at stated age Derm: warm, dry Head: atraumatic, normocephalic, symmetric Eyes: EOMI, no lid lag, anicteric sclera Mouth: no lip lesion, mucus membranes moist Cardiovascular: S1S2 reg, no murmur, positive posterior tibial pulse bilateral, Lungs: CTA bilateral, no rhonchi, no rales , no accessory muscle use Abdominal: soft, + tender to palpation LLQ, no guarding, no appreciable organomegaly Ext: no gross muscle atrophy, no edema, no contractures Neuro: CN II-XI grossly intact, no focal neuro deficits Psych: Alert, oriented, appropriate affect A total of 35 minutes of time were spent preparing this complex discharge summary . On discharge, the patient has been prescribed Van for the treatment of Acute pain. They have been provided a 5 day supply and MAPS was checked on 05/18/19. I have counseled them on the risk of opiate medications including addiction and overdose. We also discussed that mixing opiate medications with benzodiazepines, alcohol, muscle relaxers, and other drugs that depress the central nervous system can lead to serious health risks including overdose, , and disability. I informed them that it is a felony to illegally deliver, sell, or share a controlled substance. I have instructed them that unused opiates can be disposed of at a drug takeback location, which includes the [facility] and the [facility]. The Opioid start talking form has been signed. I have referred them [facility] for [facility]-up care. Pertinent Studies: CT abdomen and pelvis showed acute sigmoid diverticulitis with one punctuate area of free air as well as bilateral renal cysts. Patient Condition at Discharge: Good Plan - Discharge Summary Discharge Rx Participant: Yes New Discharge Prescriptions: New Sulfamethox-Tmp 800-160Mg [Bactrim DS 800-160 mg] 1 tab PO Q12HR #14 tab metroNIDAZOLE [Flagyl] 500 mg PO BID #14 tab HYDROcodone/APAP 5-325MG [Van 5-325] 1 each PO Q4HR PRN #22 tab PRN Reason: Moderate Pain Continue Cyanocobalamin [Vitamin B-12] 500 mcg PO DAILY Ibuprofen [Motrin Ib] 400 - 600 mg PO Q6H PRN PRN Reason: Pain Cholecalciferol [Vitamin D3 (25 Mcg = 1000 Iu)] 1,000 unit PO DAILY Omeprazole 20 mg PO DAILY Discontinued Aspirin EC [Ecotrin] 325 mg PO DIRECTED Discharge Medication List Cholecalciferol [Vitamin D3 (25 Mcg = 1000 Iu)] 1,000 unit PO DAILY 05/14/19 [History] Cyanocobalamin [Vitamin B-12] 500 mcg PO DAILY 05/14/19 [History] Ibuprofen [Motrin Ib] 400 - 600 mg PO Q6H PRN 05/14/19 [History] Omeprazole 20 mg PO DAILY 05/14/19 [History] HYDROcodone/APAP 5-325MG [Van 5-325] 1 each PO Q4HR PRN #22 tab 05/18/19 [Rx] Sulfamethox-Tmp 800-160Mg [Bactrim DS 800-160 mg] 1 tab PO Q12HR #14 tab 08/27 [Rx] metroNIDAZOLE [Flagyl] 500 mg PO BID #14 tab 05/18/19 [Rx] Follow up Appointment(s)/Referral(s): None,Stated [Primary Care Provider] - 1-2 days [facility] Brina lira [NON-STAFF] - 1 Week Monae Hagan DO [Doctor of Osteopathic Medicine] - 3 Weeks Patient Instructions/Handouts: Diverticulitis (GEN), Diverticulitis Diet (GEN) Activity/Diet/Wound Care/Special Instructions: pt may need indigent funds Diet: soft and bland for 5 days then advance Activity: as tolerated No driving if taking norco
== END 2019-05-18 15:08 | disposition home or self-care (01) | DRG 392 ==
LOC: EC 07:31 → 4SSUR 10:02
PROVIDERS: ADMIT Internal Medicine; ATTEND Internal Medicine
DX: K57.20 Diverticulitis of large intestine with perforation and abscess without bleeding (principal); N02.9 Recurrent and persistent hematuria with unspecified morphologic changes; G35 Multiple sclerosis; N28.1 Cyst of kidney, acquired; E73.9 Lactose intolerance, unspecified; F10.10 Alcohol abuse, uncomplicated; F17.210 Nicotine dependence, cigarettes, uncomplicated; R03.0 Elevated blood-pressure reading, without diagnosis of hypertension; Z79.82 Long term (current) use of aspirin; Z79.899 Other long term (current) drug therapy; Z88.1 Allergy status to other antibiotic agents; Z91.041 Radiographic dye allergy status
CPT/HCPCS: 36415; 74177; 80048; 80053; 81001; 82150; 83605; 83690; 85025; 85027; 87040; 96361; 96365; 96366; 96375; 96376; 99285

== ENCOUNTER 2019-07-30 17:48 | Emergency (ER) | payer OTHER ==
[2019-07-30 17:54] VITALS: BP 146/88; PULSE 98; RESP 20; TEMP 97.6
[2019-07-30] MEDS ORDERED: DIPH,PERTUS(ACELL)TETVAC-LF 0.5 ML VIAL IM ONE (18:04)
[2019-07-30] MEDS ORDERED: AMOXIC-POT CLAV 875MG STARTER 2 EACH TABLET PO STA (18:05)
[2019-07-30] MEDS ORDERED: LIDOCAINE 1% INJ 10MG/ML (20 ML MDV) SQ ONE (18:06)
--- NOTE | 2019-07-30 18:08 | ED ---
Animal Bite HPI - General Chief Complaint: Animal Bite Stated Complaint: Dog bite Time Seen by Provider: 07/30/19 17:52 Source: patient, RN notes reviewed, old records reviewed Mode of arrival: ambulatory Limitations: no limitations - History of Present Illness Initial Comments: 49-year-old male presents emergency department today for left tube placement with Dr. Little over distal posterior right forearm. Patient reports that it was his neighbor's dog who bit him. He blew that the dog is up-to-date on vaccines. She did contact the police as of this time. Patient reports that he has had some swelling, complains of a 3-4 cm laceration over the forearm. Patient states he has full range of motion and sensation of his hand distally and wrist. Patient denies any other pain. His tetanus shot is not up-to-date at this time and does need a new one.Patient denies any recent fever, chills, shortness of breath, chest pain, back pain, abdominal pain, nausea vomiting, numbness or tingling, dysuria or hematuria, constipation or diarrhea, headaches or visual changes, or any other current symptoms - Related Data Home Medications Medication Instructions Recorded Confirmed Cholecalciferol [Vitamin D3 (25 1,000 unit PO DAILY 05/14/19 05/14/19 Mcg = 1000 Iu)] Cyanocobalamin [Vitamin B-12] 500 mcg PO DAILY 05/14/19 05/14/19 Ibuprofen [Motrin Ib] 400 - 600 mg PO Q6H PRN 05/14/19 05/14/19 Omeprazole 20 mg PO DAILY 05/14/19 05/14/19 Previous Rx's Medication Instructions Recorded HYDROcodone/APAP 5-325MG [[place] 1 each PO Q4HR PRN #22 tab 05/18/19 5-325] Sulfamethox-Tmp 800-160Mg [Bactrim 1 tab PO Q12HR #14 tab 05/18/19 DS 800-160 mg] metroNIDAZOLE [Flagyl] 500 mg PO BID #14 tab 05/18/19 Amoxicillin/Potassium Clav 1 tab PO Q12HR #20 tab 07/30/19 [Augmentin 875-125 Tablet] Allergies Allergy/AdvReac Type Severity Reaction Status Date / Time ciprofloxacin [From Cipro] Allergy Unknown Verified 07/30/19 17:54 Iodinated Contrast- Oral and Allergy Unknown Verified 07/30/19 17:54 IV Dye lactose AdvReac Unknown Verified 07/30/19 17:54 Review of Systems ROS Statement: Those systems with pertinent positive or pertinent negative responses have been documented in the HPI. ROS Other: All systems not noted in ROS Statement are negative. 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 History of Any Multi-Drug Resistant Organisms: None Reported Past Surgical History: Hernia Repair Past Anesthesia/Blood Transfusion Reactions: No Reported Reaction Past Psychological History: No Psychological Hx Reported Smoking Status: Current every day smoker Past Alcohol Use History: Daily Past Drug Use History: None Reported - Past Family History Mother Additional Family Medical History / Comment(s): ESRD, lupus, scleroderma, thin basement membrane disease Father Additional Family Medical History / Comment(s): Interstitial lung disease General Exam - General Exam Comments Initial Comments: Pleasant 49-year-old male. No significant distress. Limitations: no limitations General appearance: alert, in no apparent distress Head exam: Present: atraumatic, normocephalic, normal inspection Eye exam: Present: normal appearance, PERRL, EOMI. Absent: scleral icterus, conjunctival injection, periorbital swelling ENT exam: Present: normal exam, mucous membranes moist Neck exam: Present: normal inspection. Absent: tenderness, meningismus, lymphadenopathy Respiratory exam: Present: normal lung sounds bilaterally. Absent: respiratory distress, wheezes, rales, rhonchi, stridor Cardiovascular Exam: Present: regular rate, normal rhythm, normal heart sounds. Absent: systolic murmur, diastolic murmur, rubs, gallop, clicks GI/Abdominal exam: Present: soft, normal bowel sounds. Absent: distended, tenderness, guarding, rebound, rigid Extremities exam: Present: full ROM, normal capillary refill. Absent: normal inspection, tenderness, pedal edema, joint swelling, calf tenderness Right Elbow exam: Present: normal inspection, full ROM Forearm Wrist exam: Present: full ROM, laceration (3cm gaping posterior forearm laceration. ). Absent: normal inspection Hand Wrist exam: Present: normal inspection, full ROM Back exam: Present: normal inspection Neurological exam: Present: alert, oriented X3, CN II-XII intact Course Vital Signs 07/30/19 17:52 Temperature 97.6 F Pulse Rate 98 Respiratory 20 Rate Blood Pressure 146/88 O2 Sat by Pulse 99 Oximetry Procedures - Laceration Laceration #1 Size (cm): 3 Description: linear Depth: involves muscle layer Anesthetic Used: lidocaine 1% Anesthesia Technique: local infiltration Amount (mls): 10 Pre-repair: wound explored, irrigated extensively Type of Sutures: nylon Size of Sutures: 5-0 Number of Sutures: 4 (loosely approximated ) Technique: simple, interrupted Patient Tolerated Procedure: well, no complications Medical Decision Making - Medical Decision Making Patient is a 29-year-old male with a dog bite to the right forearm. Patient has a 3 cm laceration and is whining keeping. Muscle layer is exposed. Patient has full range of motion of the hand and wrist. Normal sensation and capillary refill bilaterally. Patient was forearm x-ray shows evidence of a laceration. Patient wound was thoroughly irrigated with copiously with a liter of saline, and iodine. Well wound was loosely approximated with 4 sutures. I discussed that Patient should expect some bruising around the forearm. I discussed monitoring for any infection. He was started on Augmentin given starter pack a day. Given updated tetanus shot. The dog is likely up-to-date on vaccines and will record team. Patient states he does not want rabies vaccine as of this deejay e. I discussed return parameters. Patient is agreeable to treatment plan will comply. Disposition Clinical Impression: Dog bite, Laceration of right forearm Disposition: HOME SELF-CARE Instructions (If sedation given, give patient instructions): Animal Bite (ED) Additional Instructions: Please use medication as discussed. Monitor for any signs of infection including redness swelling or drainage. Please follow up with family doctor if symptoms have not improved over the next two days. Please return to the emergency room if your symptoms increase or worsen or for any other concerns. Please return to the emergency room in 8-10 days to have sutures removed. Please leave wound covered for the first 24-48 hours and then leave open to air after that time. Please use clean soap and water to clean the suture area to prevent scabbing over the top of your sutures. Please watch for any signs of infection which may include but not limited to increased pain, swelling, redness, fever or chills. Please return to the emergency room if any signs of infection do occur. Please return to the emergency room for any other concerns or complications. Prescriptions: Amoxicillin/Potassium Clav [Augmentin 875-125 Tablet] 1 tab PO Q12HR #20 tab Is patient prescribed a controlled substance at d/c from ED?: No Referrals: None,Stated [Primary Care Provider] - 1-2 days Jessica Schuler MD [STAFF PHYSICIAN] - 1-2 days Time of Disposition: 19:00
--- NOTE | 2019-07-30 18:29 | XR ---
EXAMINATION TYPE: XR forearm RT DATE OF EXAM: 07/30/2019 COMPARISON: NONE HISTORY: Dogbite TECHNIQUE: 2 views FINDINGS: Radius and ulna appear intact. There is soft tissue deformity of the posterior mid ulna. IMPRESSION: Posterior laceration deformity. No fracture seen.
== END 2019-07-30 19:20 | disposition home or self-care (01) ==
LOC: EC 17:48
DX: S51.851A Open bite of right forearm, initial encounter (principal); F17.200 Nicotine dependence, unspecified, uncomplicated; Z88.1 Allergy status to other antibiotic agents; Z91.018 Allergy to other foods; Z91.041 Radiographic dye allergy status; Z79.899 Other long term (current) drug therapy; Z23 Encounter for immunization; W54.0XXA Bitten by dog, initial encounter
CPT/HCPCS: 73090; 90715; 99284; 12002; 90471; J2001

== ENCOUNTER 2019-08-07 06:35 | Emergency (ER) | payer OTHER ==
[2019-08-07 06:42] VITALS: TEMP 97.7
[2019-08-07] MEDS ORDERED: ONDANSETRON 4 MG/2 ML VIAL IVP STA (06:44)
[2019-08-07] MEDS ORDERED: SODIUM CHLORIDE 0.9% 1,000 ML IV STA (06:44)
[2019-08-07] MEDS ORDERED: MORPHINE SULFATE 2 MG/ML SYRINGE IVP STA ×2 (06:44→09:21)
[2019-08-07] MEDS ORDERED: SODIUM CHLORIDE 0.9% 500 ML 500 ML IV STA (06:44)
[2019-08-07] MEDS ORDERED: FAMOTIDINE 20 MG/2 ML VIAL IV STA (07:15)
[2019-08-07] MEDS ORDERED: diphenhydrAMINE 50 MG/ML 1 ML VIAL IVP STA (07:15)
[2019-08-07] MEDS ORDERED: methylPREDNISolone SOD SUCCI 125 MG/2 ML VIAL IV STA (07:16)
[2019-08-07 07:17] LABS: Basophils # (A) 0.1 k/uL (0-0.2); Basophils % (A) 1 %; Eosinophils # (A) 0.4 k/uL (0-0.7); Eosinophils % (A) 4 %; HCT 45.4 % (39.0-53.0); Lymphocytes # (A) 1.4 k/uL (1.0-4.8); Lymphocytes % (A) 13 %; MCH 32.4 pg (25.0-35.0); MCHC 35.3 g/dL (31.0-37.0); MCV 91.9 fL (80.0-100.0); Mean Platelet Volume 6.1; Monocytes # (A) 0.6 k/uL (0-1.0); Monocytes % (A) 6 %; Neutrophils # (A) 7.9 k/uL (1.3-7.7); Neutrophils % (A) 75 %; Platelet Count 212 k/uL (150-450); RBC 4.94 m/uL (4.30-5.90); RDW 12.9 % (11.5-15.5); WBC 10.5 k/uL (3.8-10.6)
[2019-08-07 07:25] LABS: Albumin 3.6 g/dL (3.5-5.0); Potassium 4.1 mmol/L (3.5-5.1); Total Bilirubin 0.7 mg/dL (0.2-1.3); Total Protein 6.9 g/dL (6.3-8.2)
--- NOTE | 2019-08-07 08:23 | CT ---
EXAMINATION TYPE: CT abdomen pelvis w con DATE OF EXAM: 08/07/2019 REFERENCE: Previous study dated 05/14/2019 HISTORY: Pelvic pain. CT DLP: 2123 mGy Automated exposure control for dose reduction was used. TECHNIQUE: Helical acquisition through the abdomen and pelvis was obtained following the oral ingesti on of without Oral Contrast and following intravenous administration of 100 mL of Isovue 300. The ronald a was reformatted in axial, coronal and sagittal projections. FINDINGS: There is mild dependent atelectasis in the dependent portions of the lungs. There is some scarring or atelectasis in the right middle lobe. There is no pleural or pericardial fluid. The heart is not enlarged. Within the abdomen, the liver, spleen and gallbladder are normal. Both adrenal glands are normal. There are stable lesions within both kidneys consistent with cysts. This could BE confirmed with ultr asound. Pancreas is unremarkable. There is no significant retroperitoneal, iliac or inguinal adenopathy. There are scattered diverticula within the sigmoid region. There is some minimal residual stranding w ithin the pelvic fat and this may represent ongoing diverticulitis. No free air or evidence of pelvic abscess is identified. The appendix is unremarkable. Small bowel loops are normal in caliber. No free fluid is seen. There is degenerative disc disease and hypertrophic spondylosis present throughout the lumbar and tho racic spines. No bony destructive lesion is seen. IMPRESSION: 1. CONTINUING MILD CHANGES OF DIVERTICULITIS OF THE SIGMOID COLON WITHOUT EVIDENCE OF PERFORATION OR ABSCESS FORMATION. 2. BILATERAL RENAL CYSTS. 3. DEGENERATIVE CHANGE WITHIN THE SPINE. 4. WORSENING ATELECTASIS OR SCARRING IN THE RIGHT MIDDLE LOBE.
--- NOTE | 2019-08-07 09:07 | ED ---
Abdominal Pain HPI - General Chief Complaint: Abdominal Pain Stated Complaint: abd pain Time Seen by Provider: 08/07/19 06:44 Source: patient Mode of arrival: ambulatory Limitations: no limitations - History of Present Illness Initial Comments: 41-year-old male presenting for chief complaint of abdominal pain. Patient states that he has history of diverticulitis as well as recent dog bite to the right forearm. Patient states he has been Augmentin however he stopped taking after 3 days. Patient states he has had history of previous perforation from diverticulitis. Patient states he did not have any interventional surgery. Patient states he felt a stabbing sensation just below his belly button no similar 20s had diverticulitis in the past. Patient denies fevers. Patient does admit to diarrhea and nausea. Patient denies any fevers but has had chills. Patient denies melena hematochezia or hematemesis. Patient denies any chest pain shortness of breath or leg swelling denies any other complaints. Remaining review of system negative. Upon arrival patient appears well no signs acute distress. Patient denies any radiation of the pain or specific alleviating or aggravating factors. - Related Data Home Medications Medication Instructions Recorded Confirmed Cholecalciferol [Vitamin D3 (25 1,000 unit PO DAILY 05/14/19 08/07/19 Mcg = 1000 Iu)] Cyanocobalamin [Vitamin B-12] 500 mcg PO DAILY 05/14/19 08/07/19 Ibuprofen [Motrin Ib] 400 - 600 mg PO Q6H PRN 05/14/19 08/07/19 Omeprazole 20 mg PO DAILY 05/14/19 08/07/19 Previous Rx's Medication Instructions Recorded Sulfamethox-Tmp 800-160Mg [Bactrim 1 tab PO Q12HR 7 Days #14 tab 08/07/19 DS 800-160 mg] metroNIDAZOLE [Flagyl] 500 mg PO TID 7 Days #21 tab 08/07/19 Allergies Allergy/AdvReac Type Severity Reaction Status Date / Time ciprofloxacin [From Cipro] Allergy Unknown Verified 08/07/19 08:13 Iodinated Contrast Media Allergy Unknown Verified 08/07/19 08:13 [Iodinated Contrast- Oral and IV Dye] lactose AdvReac Unknown Verified 08/07/19 08:13 Review of Systems ROS Statement: Those systems with pertinent positive or pertinent negative responses have been documented in the HPI. ROS Other: All systems not noted in ROS Statement are negative. 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 History of Any Multi-Drug Resistant Organisms: None Reported Past Surgical History: Hernia Repair Past Anesthesia/Blood Transfusion Reactions: No Reported Reaction Past Psychological History: No Psychological Hx Reported Smoking Status: Current every day smoker Past Alcohol Use History: Daily Past Drug Use History: None Reported - Past Family History Mother Additional Family Medical History / Comment(s): ESRD, lupus, scleroderma, thin basement membrane disease Father Additional Family Medical History / Comment(s): Interstitial lung disease General Exam - General Exam Comments Initial Comments: General: The patient is awake and alert, in no distress Eye: +3 mm pupils are equal, round and reactive to light, extra-ocular movements are intact. No nystagmus. There is normal conjunctiva bilaterally. No signs of icterus. Ears, nose, mouth and throat: There are moist mucous membranes and no oral lesions. Neck: The neck is supple, there is no tenderness or JVD. Cardiovascular: There is a regular rate and rhythm. No murmur, rub or gallop is appreciated. Respiratory: Lungs are clear to auscultation, respirations are non-labored, breath sounds are equal. No wheezes, stridor, rales, or rhonchi. Gastrointestinal: Soft, non-distended, lower quadrants are tender to palpation diffusely. abdomen without masses or organomegaly noted. There is no rebound or guarding present. Musculoskeletal: Normal ROM, no tenderness. Strength 5/5. Sensation intact. Pulses equal bilaterally 2+. Neurological: A&O x 3. CN II-XII intact grossly, There are no obvious motor or sensory deficits. Coordination appears grossly intact. Speech is normal. Skin: Skin is warm and dry and no rashes or lesions are noted. Psychiatric: Cooperative, appropriate mood & affect, normal judgment. Limitations: no limitations Course Vital Signs 08/07/19 08/07/19 06:38 09:38 Temperature 97.7 F Pulse Rate 110 H 77 Respiratory 20 18 Rate Blood Pressure 158/99 138/86 O2 Sat by Pulse 99 98 Oximetry Medical Decision Making - Medical Decision Making 49-year-old history of diverticulitis presenting for possible diverticulitis. Patient was on Augmentin for only 3 days twice a day for dog bite. Patient denies any other treatment of diverticulitis. Patient states that the pain is sharp stabbing the lower abdomen no radiation. No specific alleviating or aggravating factors. Patient states he does have diarrhea denies melena hematochezia. Upon laboratory studies patient does have no leukocytosis. Hemoglobin was stable. Electrolytes within except limits. Patient appears well after pain medication. Patient CT revealed a non-complicated diverticulitis. We discussed options including inpatient for IV antibiotics and pain management versus outpatient with clear liquid diet, oral antibiotics. Patient states he would prefer a trial of oral antibiotics outpatient states he knows how to eat during his diverticulitis bouts--I did not provide patient pain medications and discharged in order to allow patient to properly assess any worsening of symptoms. Return for hemorrhage or discussed at length as well as importance of follow-up with gastroenterology. Patient was understanding was discharged. Will after discussing case in detail by attending prior Dr. Humphrey was agreeable to this care plan. - Lab Data Result diagrams: 08/07/19 07:06 08/07/19 07:06 Lab Results 08/07/19 08/07/19 08/07/19 Range/Units 07:06 07:06 07:06 WBC 10.5 (3.8-10.6) k/uL RBC 4.94 (4.30-5.90) m/uL Hgb 16.0 (13.0-17.5) gm/dL Hct 45.4 (39.0-53.0) % MCV 91.9 (80.0-100.0) fL MCH 32.4 (25.0-35.0) pg MCHC 35.3 (31.0-37.0) g/dL RDW 12.9 (11.5-15.5) % Plt Count 212 (150-450) k/uL Neutrophils % 75 % Lymphocytes % 13 % Monocytes % 6 % Eosinophils % 4 % Basophils % 1 % Neutrophils # 7.9 H (1.3-7.7) k/uL Lymphocytes # 1.4 (1.0-4.8) k/uL Monocytes # 0.6 (0-1.0) k/uL Eosinophils # 0.4 (0-0.7) k/uL Basophils # 0.1 (0-0.2) k/uL Sodium 138 (137-145) mmol/L Potassium 4.1 (3.5-5.1) mmol/L Chloride 106 (98-107) mmol/L Carbon Dioxide 26 (22-30) mmol/L Anion Gap 6 mmol/L BUN 19 (9-20) mg/dL Creatinine 1.22 (0.66-1.25) mg/dL Est GFR (CKD-EPI)AfAm 80 (>60 ml/min/1.73 sqM) Est GFR (CKD-EPI)NonAf 70 (>60 ml/min/1.73 sqM) Glucose 115 H (74-99) mg/dL Plasma Lactic Acid Benito 1.0 (0.7-2.0) mmol/L Calcium 9.0 (8.4-10.2) mg/dL Total Bilirubin 0.7 (0.2-1.3) mg/dL AST 31 (17-59) U/L ALT 27 (21-72) U/L Alkaline Phosphatase 101 (38-126) U/L Total Protein 6.9 (6.3-8.2) g/dL Albumin 3.6 (3.5-5.0) g/dL Lipase 209 (23-300) U/L Urine Color Urine Appearance (Clear) Urine pH (5.0-8.0) Ur Specific [place] (1.001-1.035) Urine Protein (Negative) Urine Glucose (UA) (Negative) Urine Ketones (Negative) Urine Blood (Negative) Urine Nitrite (Negative) Urine Bilirubin (Negative) Urine Urobilinogen (<2.0) mg/dL Ur Leukocyte Esterase (Negative) Urine RBC (0-5) /hpf Urine WBC (0-5) /hpf Hyaline Casts (0-2) /lpf Urine Mucus (None) /hpf 08/07/19 Range/Units 08:50 WBC (3.8-10.6) k/uL RBC (4.30-5.90) m/uL Hgb (13.0-17.5) gm/dL Hct (39.0-53.0) % MCV (80.0-100.0) fL MCH (25.0-35.0) pg MCHC (31.0-37.0) g/dL RDW (11.5-15.5) % Plt Count (150-450) k/uL Neutrophils % % Lymphocytes % % Monocytes % % Eosinophils % % Basophils % % Neutrophils # (1.3-7.7) k/uL Lymphocytes # (1.0-4.8) k/uL Monocytes # (0-1.0) k/uL Eosinophils # (0-0.7) k/uL Basophils # (0-0.2) k/uL Sodium (137-145) mmol/L Potassium (3.5-5.1) mmol/L Chloride (98-107) mmol/L Carbon Dioxide (22-30) mmol/L Anion Gap mmol/L BUN (9-20) mg/dL Creatinine (0.66-1.25) mg/dL Est GFR (CKD-EPI)AfAm (>60 ml/min/1.73 sqM) Est GFR (CKD-EPI)NonAf (>60 ml/min/1.73 sqM) Glucose (74-99) mg/dL Plasma Lactic Acid Benito (0.7-2.0) mmol/L Calcium (8.4-10.2) mg/dL Total Bilirubin (0.2-1.3) mg/dL AST (17-59) U/L ALT (21-72) U/L Alkaline Phosphatase (38-126) U/L Total Protein (6.3-8.2) g/dL Albumin (3.5-5.0) g/dL Lipase (23-300) U/L Urine Color Yellow Urine Appearance Clear (Clear) Urine pH 5.5 (5.0-8.0) Ur Specific [place] 1.033 (1.001-1.035) Urine Protein 1+ H (Negative) Urine Glucose (UA) Negative (Negative) Urine Ketones Negative (Negative) Urine Blood Moderate H (Negative) Urine Nitrite Negative (Negative) Urine Bilirubin Negative (Negative) Urine Urobilinogen <2.0 (<2.0) mg/dL Ur Leukocyte Esterase Negative (Negative) Urine RBC 7 H (0-5) /hpf Urine WBC 1 (0-5) /hpf Hyaline Casts 1 (0-2) /lpf Urine Mucus Rare H (None) /hpf Disposition Clinical Impression: Diverticulitis large intestine, Abdominal pain Disposition: HOME SELF-CARE Condition: Good Instructions (If sedation given, give patient instructions): Diverticulitis (ED), Diverticulitis Diet (ED) Additional Instructions: Please use medication as discussed-no drinking with the flagyll. Please follow- up with family doctor in the next 2 days, immediate return to the ER for increased pain. Please return to emergency room if the symptoms increase or worsen or for any other concerns. Prescriptions: Sulfamethox-Tmp 800-160Mg [Bactrim DS 800-160 mg] 1 tab PO Q12HR 7 Days #14 tab metroNIDAZOLE [Flagyl] 500 mg PO TID 7 Days #21 tab Is patient prescribed a controlled substance at d/c from ED?: No Referrals: None,Stated [Primary Care Provider] - 1-2 days Lary Villanueva MD [STAFF PHYSICIAN] - 1-2 days Time of Disposition: 09:25
[2019-08-07 09:09] LABS: Appearance,Urine Clear (Clear); Bilirubin,Urine Negative (Negative); Blood,Urine Moderate (Negative); Color,Urine Yellow; Glucose,Urine (UA) Negative (Negative); Hyaline Casts,Urine 1 /lpf (0-2); Ketones,Urine Negative (Negative); Leukocyte Esterase,Urine Negative (Negative); Mucus,Urine Rare /hpf; Nitrite,Urine Negative (Negative); PH, Urine 5.5 (5.0-8.0); Protein,Urine 1+ (Negative); RBC,Urine 7 /hpf (0-5); Specific Gravity,Urine 1.033 (1.001-1.035); Urobilinogen,Urine <2.0 mg/dL (<2.0); WBC,Urine 1 /hpf (0-5)
[2019-08-07] MEDS ORDERED: SULFAMETH-TMP DS STARTER PACK 2 TAB BTL PO STA (09:22)
[2019-08-07] MEDS ORDERED: metroNIDAZOLE 500 MG TAB PO STA (09:22)
[2019-08-07 09:39] VITALS: BP 138/86; PULSE 77; RESP 18
== END 2019-08-07 09:43 | disposition home or self-care (01) ==
LOC: EC 06:35
DX: K57.32 Diverticulitis of large intestine without perforation or abscess without bleeding (principal); F17.200 Nicotine dependence, unspecified, uncomplicated; Z79.899 Other long term (current) drug therapy; Z88.1 Allergy status to other antibiotic agents; Z91.041 Radiographic dye allergy status; Z91.011 Allergy to milk products
CPT/HCPCS: 99284; 96374; 96375 ×4; 96376; 96361; 36415; 80053; 83605; 83690; 85025; 81001; 87040; 74177; J1200; J2930; J2405; J2270; Q9967

== ENCOUNTER 2019-10-01 16:49 | Emergency (ER) | payer OTHER ==
[2019-10-01] MEDS ORDERED: SODIUM CHLORIDE 0.9% 1,000 ML IV STA (17:30)
[2019-10-01] MEDS ORDERED: MORPHINE SULFATE 4 MG/ML SYRINGE IV STA (17:30)
--- NOTE | 2019-10-01 18:18 | XR ---
EXAMINATION TYPE: XR tibia fibula 2 views LT, XR foot complete 3 views LT DATE OF EXAM: 10/01/2019 COMPARISON: NONE HISTORY: 49-year-old male with left leg pain, redness, bruising FINDINGS: Tibia/fibula: Some nonspecific elongated calcification deep posterior calf soft tissues, likely heterotopic ossific ation. No acute fracture. Knee and ankle articulations appear grossly intact. Foot: No acute fracture, subluxation, or dislocation. Small plantar calcaneal spur. IMPRESSION: 1. Tibia/fibula and foot without acute osseous abnormality seen. 2. Some nonspecific elongated calcification deep posterior calf soft tissues, probably sequela of fredy e remote injury with heterotopic ossification. A conservative six-month radiographic follow-up can be considered. 3. Small plantar calcaneal spur.
--- NOTE | 2019-10-01 18:20 | ED ---
General Adult HPI - General Chief complaint: Recheck/Abnormal Lab/Rx Stated complaint: Poss DVT Time Seen by Provider: 10/01/19 17:00 Source: patient, RN notes reviewed, old records reviewed Mode of arrival: ambulatory - History of Present Illness Initial comments: 49-year-old male patient presents to ED chief complaint of pain in left lower extremity. Patient reports this initially started 6 weeks ago. Patient reports that 6 weeks ago he had approximately 2 weeks of painful left lower extremity. Reports there was swollen and erythematous. Patient reports that then improved. Improved for approximately 2 weeks. Patient reports that 2 weeks prior from today's date he began to experience pain in the left lower extremity. Patient pulled. He has some ecchymoses on the lateral aspect of the knee. Reports that he has some pain at this region. However the majority of his pain is on the dorsum of the left foot. Denies any other complaints. Denies any fevers at home. Denies any personal history of coagulation disorders. Does report that his mom has lupus However he has not been positive for these. Systemic: Pt denies fatigue, fever/chills, rash. Pt denies weakness, night sweats, weight loss. Neuro: Pt denies headache, visual disturbances, syncope or pre-syncope. HEENT: Pt denies ocular discharge or irritation, otalgia, rhinorrhea, pharyngitis or notable lymphadenopathy. Cardiopulmonary: Pt denies chest pain, SOB, heart palpitations, dyspnea on exertion. Abdominal/GI: Pt denies abdominal pain, n/v/d. : Pt denies dysuria, burning w/ urination, frequency/urgency. Denies new onset urinary or bowel incontinence. MSK: Pt denies myalgia, loss of strength or function in extremities. Neuro: Pt denies new onset weakness, paresthesias. - Related Data Home Medications Medication Instructions Recorded Confirmed Cholecalciferol [Vitamin D3 (25 1,000 unit PO DAILY 05/14/19 08/07/19 Mcg = 1000 Iu)] Cyanocobalamin [Vitamin B-12] 500 mcg PO DAILY 05/14/19 08/07/19 Ibuprofen [Motrin Ib] 400 - 600 mg PO Q6H PRN 05/14/19 08/07/19 Omeprazole 20 mg PO DAILY 05/14/19 08/07/19 Previous Rx's Medication Instructions Recorded Sulfamethox-Tmp 800-160Mg [Bactrim 1 tab PO Q12HR 7 Days #14 tab 08/07/19 DS 800-160 mg] metroNIDAZOLE [Flagyl] 500 mg PO TID 7 Days #21 tab 08/07/19 Cephalexin [Keflex] 500 mg PO Q6HR 7 Days #28 cap 10/01/19 Allergies Allergy/AdvReac Type Severity Reaction Status Date / Time ciprofloxacin [From Cipro] Allergy Unknown Verified 08/07/19 08:13 Iodinated Contrast Media Allergy Unknown Verified 08/07/19 08:13 [Iodinated Contrast- Oral and IV Dye] lactose AdvReac Unknown Verified 08/07/19 08:13 Review of Systems ROS Statement: Those systems with pertinent positive or pertinent negative responses have been documented in the HPI. ROS Other: All systems not noted in ROS Statement are negative. 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 History of Any Multi-Drug Resistant Organisms: None Reported Past Surgical History: Hernia Repair Past Anesthesia/Blood Transfusion Reactions: No Reported Reaction Past Psychological History: No Psychological Hx Reported Smoking Status: Current every day smoker Past Alcohol Use History: Daily Past Drug Use History: None Reported - Past Family History Mother Additional Family Medical History / Comment(s): ESRD, lupus, scleroderma, thin basement membrane disease Father Additional Family Medical History / Comment(s): Interstitial lung disease General Exam - General Exam Comments Initial Comments: Constitutional: NAD, AOX3, Pt has pleasant affect. HEENT: NC/AT, trachea midline, neck supple, no lymphadenopathy. Posterior pharynx non erythematous, without exudates. External ears appear normal, without discharge. Mucous membranes moist. Eyes PERRLA, EOM intact. There is no scleral icterus. No pallor noted. Cardiopulmonary: RRR, no murmurs, rubs or gallops, no JVD noted. Lungs CTAB in anterior and posterior fernández. No peripheral edema. Abdominal exam: Abdomen soft and non-distended. Abdomen non-tender to palpation in all 4 quadrants. Bowel sounds active in LLQ. No hepatosplenomegaly. No ecchymosis Neuro: CN II-XII grossly intact. No nuchal rigidity. No raccon eyes, no ribeiro sign, no hemotympanum. No cervical spinal tenderness. MSK: Small amount ecchymoses left lateral knee, posterior calf mildly tender. 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 Distal pulses intact equal. Cap refill less than 2 seconds. No posterior calf ten derness bilaterally, homans sign negative bilaterally. Posterior tibialis and radial pulse +2 bilaterally. Sensation intact in upper and lower extremities. Full active ROM in upper and lower extremities, 5/5 stregnth. Course Vital Signs 10/01/19 16:55 Temperature 97.7 F Pulse Rate 82 Respiratory 18 Rate Blood Pressure 149/83 O2 Sat by Pulse 97 Oximetry Medical Decision Making - Medical Decision Making 49-year-old male patient presents to ED chief complaint of pain in left lower extremity. Patient reports this initially started 6 weeks ago. Patient reports that 6 weeks ago he had approximately 2 weeks of painful left lower extremity. Reports there was swollen and erythematous. Patient reports that then improved. Improved for approximately 2 weeks. Patient reports that 2 weeks prior from today's date he began to experience pain in the left lower extremity. Patient pulled. He has some ecchymoses on the lateral aspect of the knee. Reports that he has some pain at this region. However the majority of his pain is on the dorsum of the left foot. Denies any other complaints. Denies any fevers at home. Denies any personal history of coagulation disorders. Does report that his mom has lupus However he has not been positive for these. Patient vital signs stable, afebrile. Physical exam displayed: Small amount ecchymoses left lateral knee, posterior calf mildly tender. 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 Distal pulses intact equal. Cap refill less than 2 seconds. Investigations are non-impressive. Patient on any blood thinners. Ultrasound left lower extremity negative for blood clot. Films did not display any acute process. Patient will be discharged with antibiotics for possible folliculitis. Pt is not on any blood thinners. Will discharge and close outpatient follow-up with primary care provider. Will return to ER if condition worsens in any way. Case discussed with Dr. Espinal, - Lab Data Result diagrams: 10/01/19 18:23 10/01/19 18:23 Lab Results 10/01/19 10/01/19 10/01/19 Range/Units 18:23 18: 18:23 WBC 6.9 (3.8-10.6) k/uL RBC 4.77 (4.30-5.90) m/uL Hgb 15.4 (13.0-17.5) gm/dL Hct 45.5 (39.0-53.0) % MCV 95.4 (80.0-100.0) fL MCH 32.2 (25.0-35.0) pg MCHC 33.8 (31.0-37.0) g/dL RDW 12.9 (11.5-15.5) % Plt Count 230 (150-450) k/uL Neutrophils % 60 % Lymphocytes % 27 % Monocytes % 6 % Eosinophils % 4 % Basophils % 1 % Neutrophils # 4.1 (1.3-7.7) k/uL Lymphocytes # 1.8 (1.0-4.8) k/uL Monocytes # 0.4 (0-1.0) k/uL Eosinophils # 0.3 (0-0.7) k/uL Basophils # 0.1 (0-0.2) k/uL Sodium 140 (137-145) mmol/L Potassium 4.0 (3.5-5.1) mmol/L Chloride 109 H (98-107) mmol/L Carbon Dioxide 23 (22-30) mmol/L Anion Gap 8 mmol/L BUN 20 (9-20) mg/dL Creatinine 0.95 (0.66-1.25) mg/dL Est GFR (CKD-EPI)AfAm >90 (>60 ml/min/1.73 sqM) Est GFR (CKD-EPI)NonAf >90 (>60 ml/min/1.73 sqM) Glucose 86 (74-99) mg/dL Plasma Lactic Acid Benito 1.5 (0.7-2.0) mmol/L Calcium 8.5 (8.4-10.2) mg/dL Total Bilirubin 0.3 (0.2-1.3) mg/dL AST 54 (17-59) U/L ALT 54 (21-72) U/L Alkaline Phosphatase 100 (38-126) U/L Total Protein 6.8 (6.3-8.2) g/dL Albumin 3.6 (3.5-5.0) g/dL Disposition Clinical Impression: Folliculitis Disposition: HOME SELF-CARE Condition: Stable Instructions (If sedation given, give patient instructions): Folliculitis (ED) Additional Instructions: Follow-up with primary care provider tomorrow. Take antibiotics as directed. Return to ER if condition worsens in any way. Prescriptions: Cephalexin [Keflex] 500 mg PO Q6HR 7 Days #28 cap Is patient prescribed a controlled substance at d/c from ED?: No Referrals: None,Stated [Primary Care Provider] - 1-2 days [facility] [NON-STAFF] - 1-2 days
[2019-10-01 18:39] LABS: Basophils # (A) 0.1 k/uL (0-0.2); Basophils % (A) 1 %; Eosinophils # (A) 0.3 k/uL (0-0.7); Eosinophils % (A) 4 %; HCT 45.5 % (39.0-53.0); HGB 15.4 gm/dL (13.0-17.5); Lymphocytes # (A) 1.8 k/uL (1.0-4.8); Lymphocytes % (A) 27 %; MCH 32.2 pg (25.0-35.0); MCHC 33.8 g/dL (31.0-37.0); MCV 95.4 fL (80.0-100.0); Mean Platelet Volume 5.8; Monocytes # (A) 0.4 k/uL (0-1.0); Monocytes % (A) 6 %; Neutrophils # (A) 4.1 k/uL (1.3-7.7); Neutrophils % (A) 60 %; Platelet Count 230 k/uL (150-450); RBC 4.77 m/uL (4.30-5.90); RDW 12.9 % (11.5-15.5); WBC 6.9 k/uL (3.8-10.6)
[2019-10-01 18:49] LABS: ALT 54 U/L (21-72); AST 54 U/L (17-59); African American GFR (CKD) >90 (>60 ml/min/1.73 sqM); Albumin 3.6 g/dL (3.5-5.0); Alkaline Phosphatase 100 U/L (38-126); Anion Gap 8 mmol/L; Blood Urea Nitrogen 20 mg/dL (9-20); Calcium 8.5 mg/dL (8.4-10.2); Carbon Dioxide 23 mmol/L (22-30); Chloride 109 mmol/L (98-107); Glucose 86 mg/dL (74-99); Non-African American GFR(CKD) >90 (>60 ml/min/1.73 sqM); Sodium 140 mmol/L (137-145); Total Bilirubin 0.3 mg/dL (0.2-1.3); Total Protein 6.8 g/dL (6.3-8.2)
--- NOTE | 2019-10-01 19:06 | US ---
EXAMINATION TYPE: US venous doppler duplex LE LT DATE OF EXAM: 10/01/2019 6:42 PM COMPARISON: NONE CLINICAL HISTORY: 49-year-old male pain, ecchymosis, Redness and swelling left foot per patient; spid er veins; 2 weeks ago had left leg swelling; mother has blood clotting disorder SIDE PERFORMED: Left TECHNIQUE: The lower extremity deep venous system is examined utilizing real time linear array sonog jass with graded compression, doppler sonography and color-flow sonography. FINDINGS: VESSELS IMAGED: Common Femoral Vein Deep Femoral Vein Greater Saphenous Vein * Femoral Vein Popliteal Vein Small Saphenous Vein * Proximal Calf Veins Posterior tibial veins (* superficial vessels) Left Leg: Negative for DVT IMPRESSION: No evidence for DVT within the left lower extremity.
[2019-10-01] MEDS ORDERED: CEPHALEXIN 500MG STARTER PACK 4 CAP BTL PO STA (20:02)
[2019-10-01 20:39] VITALS: BP 144/77; PULSE 84; RESP 16; TEMP 98.7
== END 2019-10-01 20:39 | disposition home or self-care (01) ==
LOC: EC 16:49
DX: L73.9 Follicular disorder, unspecified (principal); S80.02XA Contusion of left knee, initial encounter; F17.200 Nicotine dependence, unspecified, uncomplicated; Z79.899 Other long term (current) drug therapy; Z88.1 Allergy status to other antibiotic agents; Z88.8 Allergy status to other drugs, medicaments and biological substances; Z91.048 Other nonmedicinal substance allergy status; X58.XXXA Exposure to other specified factors, initial encounter
CPT/HCPCS: 36415; 80053; 83605; 85025; 73590; 73630; 93971; 99284; 96374; 96361; J2270

== ENCOUNTER 2019-10-10 07:47 | Inpatient (IN) | payer OTHER ==
[2019-10-10] MEDS ORDERED: SODIUM CHLORIDE 0.9% 2,000 ML IV STA (08:01)
[2019-10-10] MEDS ORDERED: ONDANSETRON 4 MG/2 ML VIAL IVP STA (08:01)
[2019-10-10] MEDS ORDERED: HYDROmorphone 1 MG/ML 1 ML SYRINGE IVP STA ×2 (08:01→08:49)
[2019-10-10] MEDS ORDERED: diphenhydrAMINE 50 MG/ML 1 ML VIAL IVP STA (08:02)
[2019-10-10] MEDS ORDERED: methylPREDNISolone SOD SUCCI 125 MG/2 ML VIAL IV STA (08:02)
[2019-10-10] MEDS ORDERED: FAMOTIDINE 20 MG/2 ML VIAL IV STA (08:02)
--- NOTE | 2019-10-10 08:08 | ED ---
Abdominal Pain HPI - General Chief Complaint: Abdominal Pain Stated Complaint: abdominal pain Time Seen by Provider: 10/10/19 07:54 Source: patient, family, RN notes reviewed Mode of arrival: wheelchair Limitations: no limitations - History of Present Illness Initial Comments: 49-year-old male presents emergency Department with chief complaint of severe lower abdominal pain. Patient states he's had some cramping since yesterday but overnight has tenderness worsen. Patient had a perforation in May diverticulitis. Patient states it feels very similar the nature of the pain but states it's much more intense. Patient's had prior hernia repair no other abdominal surgeries admits to nausea vomiting denies any significant diarrhea or melena or hematochezia. Patient denies any dysuria hematuria. No history kidney stones. Patient states that nothing is making his pain feel better. He states that he is worsening with movements. - Related Data Home Medications Medication Instructions Recorded Confirmed Cholecalciferol [Vitamin D3 (25 1,000 unit PO DAILY 05/14/19 08/07/19 Mcg = 1000 Iu)] Cyanocobalamin [Vitamin B-12] 500 mcg PO DAILY 05/14/19 08/07/19 Ibuprofen [Motrin Ib] 400 - 600 mg PO Q6H PRN 05/14/19 08/07/19 Omeprazole 20 mg PO DAILY 05/14/19 08/07/19 Previous Rx's Medication Instructions Recorded Sulfamethox-Tmp 800-160Mg [Bactrim 1 tab PO Q12HR 7 Days #14 tab 08/07/19 DS 800-160 mg] metroNIDAZOLE [Flagyl] 500 mg PO TID 7 Days #21 tab 08/07/19 Cephalexin [Keflex] 500 mg PO Q6HR 7 Days #28 cap 10/01/19 Allergies Allergy/AdvReac Type Severity Reaction Status Date / Time ciprofloxacin [From Cipro] Allergy Unknown Verified 10/10/19 07:51 Iodinated Contrast Media Allergy Unknown Verified 10/10/19 07:51 [Iodinated Contrast- Oral and IV Dye] lactose AdvReac Unknown Verified 10/10/19 07:51 Review of Systems ROS Statement: Those systems with pertinent positive or pertinent negative responses have been documented in the HPI. ROS Other: All systems not noted in ROS Statement are negative. 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, diverticulitis History of Any Multi-Drug Resistant Organisms: None Reported Past Surgical History: Hernia Repair Past Anesthesia/Blood Transfusion Reactions: No Reported Reaction Past Psychological History: No Psychological Hx Reported Smoking Status: Current every day smoker Past Alcohol Use History: Daily Past Drug Use History: Marijuana - Past Family History Mother Additional Family Medical History / Comment(s): ESRD, lupus, scleroderma, thin basement membrane disease Father Additional Family Medical History / Comment(s): Interstitial lung disease General Exam Limitations: no limitations General appearance: alert, in distress (Patient appears to be very uncomfortable, writhing around in the bed) Head exam: Present: atraumatic, normocephalic, normal inspection Eye exam: Present: normal appearance, PERRL, EOMI. Absent: scleral icterus, conjunctival injection, periorbital swelling ENT exam: Present: normal exam, normal oropharynx, mucous membranes moist, TM's normal bilaterally Neck exam: Present: normal inspection, full ROM. Absent: tenderness, meningismus, lymphadenopathy Respiratory exam: Present: normal lung sounds bilaterally. Absent: respiratory distress, wheezes, rales, rhonchi, stridor Cardiovascular Exam: Present: regular rate, normal rhythm, normal heart sounds. Absent: systolic murmur, diastolic murmur, rubs, gallop, clicks GI/Abdominal exam: Present: tenderness, guarding, rigid (Minimal). Absent: soft Back exam: Absent: CVA tenderness (R), CVA tenderness (L) Neurological exam: Present: alert, oriented X3 Skin exam: Present: warm, dry, intact, normal color. Absent: rash Course Vital Signs 10/10/19 07:52 Temperature 97.4 F L Pulse Rate 110 H Respiratory 18 Rate Blood Pressure 108/64 O2 Sat by Pulse 99 Oximetry Medical Decision Making - Medical Decision Making Patient CT shows uncomplicated diverticulitis no perforation or abscess. Patient has mild leukocytosis. Patient's pain is moderately controlled with IV narcotics at this time. Patient be admitted for antibiotics, pain control. - Lab Data Result diagrams: 10/10/19 08:42 10/10/19 08:42 Lab Results 10/10/19 10/10/19 10/10/19 Range/Units 08:42 08:42 08:42 WBC 11.4 H (3.8-10.6) k/uL RBC 5.19 (4.30-5.90) m/uL Hgb 16.5 (13.0-17.5) gm/dL Hct 50.4 (39.0-53.0) % MCV 97.2 (80.0-100.0) fL MCH 31.8 (25.0-35.0) pg MCHC 32.8 (31.0-37.0) g/dL RDW 12.7 (11.5-15.5) % Plt Count 247 (150-450) k/uL Neutrophils % 77 % Lymphocytes % 10 % Monocytes % 8 % Eosinophils % 3 % Basophils % 0 % Neutrophils # 8.8 H (1.3-7.7) k/uL Lymphocytes # 1.1 (1.0-4.8) k/uL Monocytes # 0.9 (0-1.0) k/uL Eosinophils # 0.3 (0-0.7) k/uL Basophils # 0.0 (0-0.2) k/uL Sodium 138 (137-145) mmol/L Potassium 4.9 (3.5-5.1) mmol/L Chloride 102 (98-107) mmol/L Carbon Dioxide 29 (22-30) mmol/L Anion Gap 7 mmol/L BUN 20 (9-20) mg/dL Creatinine 1.22 (0.66-1.25) mg/dL Est GFR (CKD-EPI)AfAm 80 (>60 ml/min/1.73 sqM) Est GFR (CKD-EPI)NonAf 70 (>60 ml/min/1.73 sqM) Glucose 118 H (74-99) mg/dL Plasma Lactic Acid Benito 1.8 (0.7-2.0) mmol/L Calcium 10.5 H (8.4-10.2) mg/dL Total Bilirubin 1.1 (0.2-1.3) mg/dL AST 46 (17-59) U/L ALT 60 (21-72) U/L Alkaline Phosphatase 106 (38-126) U/L Total Protein 7.1 (6.3-8.2) g/dL Albumin 3.8 (3.5-5.0) g/dL Amylase 54 (30-110) U/L Lipase 99 (23-300) U/L Disposition Clinical Impression: Acute diverticulitis, Intractable abdominal pain Disposition: ADMITTED IP TO THIS HOSP Condition: Fair Referrals: None,Stated [Primary Care Provider] - 1-2 days
[2019-10-10 08:52] LABS: Basophils % (A) 0 %; Eosinophils # (A) 0.3 k/uL (0-0.7); Eosinophils % (A) 3 %; HCT 50.4 % (39.0-53.0); HGB 16.5 gm/dL (13.0-17.5); Lymphocytes # (A) 1.1 k/uL (1.0-4.8); Lymphocytes % (A) 10 %; MCH 31.8 pg (25.0-35.0); MCHC 32.8 g/dL (31.0-37.0); MCV 97.2 fL (80.0-100.0); Mean Platelet Volume 6.5; Monocytes # (A) 0.9 k/uL (0-1.0); Monocytes % (A) 8 %; Neutrophils # (A) 8.8 k/uL (1.3-7.7); Neutrophils % (A) 77 %; Platelet Count 247 k/uL (150-450); RBC 5.19 m/uL (4.30-5.90); RDW 12.7 % (11.5-15.5); WBC 11.4 k/uL (3.8-10.6)
[2019-10-10 09:02] LABS: Albumin 3.8 g/dL (3.5-5.0); Calcium 10.5 mg/dL (8.4-10.2); Potassium 4.9 mmol/L (3.5-5.1); Total Bilirubin 1.1 mg/dL (0.2-1.3); Total Protein 7.1 g/dL (6.3-8.2)
--- NOTE | 2019-10-10 09:40 | CT ---
EXAMINATION TYPE: CT abdomen pelvis w con DATE OF EXAM: 10/10/2019 COMPARISON: 05/27/2016 HISTORY: Abdominal pain CT DLP: 2066.3 mGycm Automated exposure control for dose reduction was used. TECHNIQUE: Helical acquisition of images was performed from the lung bases through the pelvis. CONTRAST: Performed without Oral Contrast and with IV Contrast, patient injected with 100 ml mL of Isovue 300. FINDINGS: LUNG BASES: Unchanged right middle lobe nodular consolidative process in comparison to 08/07/2019 and bibasilar dependent subsegmental atelectasis. LIVER/GB: Hepatic parenchyma is diffusely hypoattenuated in comparison to that of the spleen, most co mmonly seen in hepatic steatosis. This finding limits evaluation for hepatic masses. No gross evidenc e of hepatic mass is seen. No intrahepatic biliary ductal dilatation. No cholelithiasis PANCREAS: No significant abnormality is seen. SPLEEN: No significant abnormality is seen. ADRENALS: No nodularity or thickening. KIDNEYS: Redemonstration of multiple hypoattenuated renal lesions, the largest again compatible with a simple cyst measuring approximately 3 cm. The subcentimeter lesions are too small to characterize b ut likely relate to cysts as well. FREE AIR: No free air is visualized. REPRODUCTIVE ORGANS: No significant abnormality is seen URINARY BLADDER: No significant abnormality is seen. ADENOPATHY: No greater than 1 cm short axis lymph nodes in the abdomen or pelvis. OSSEOUS STRUCTURES: Grade 1 anterolisthesis of L3 on L4 is again noted with multilevel severe degene rative disc disease. BOWEL: Sigmoid acute diverticulitis is seen with inflammatory fat stranding has slightly worsened in comparison to the prior of 08/07/2019. Colonic wall thickening is long segment and there is adjacent fascial plane thickening. No pericolonic abscess seen at this time. Slightly prominent loops of small bowel in the left lower quadrant likely relate to reactive ileus. Very trace amount of right lower q uadrant free fluid. Appendix is unremarkable. IMPRESSION: 1. ACUTE UNCOMPLICATED SIGMOID DIVERTICULITIS WITH NO PERICOLONIC ABSCESS OR FREE AIR. IN COMPARISON TO THE PRIOR OF 08/07/2019 SEVERITY IS SLIGHTLY WORSENED. PROMINENT LOOPS OF SMALL BOWEL ARE LIKELY ON THE BASIS OF REACTIVE ILEUS. 2. NODULE RIGHT BASILAR CONSOLIDATION IS UNCHANGED FROM 08/07/2019. GIVEN THE NODULAR COMPONENT PRECAU TIONARY 6 MONTH FOLLOW-UP CHEST CT IS RECOMMENDED TO ENSURE NO UNDERLYING NODULE. 3. HEPATIC STEATOSIS.
[2019-10-10] MEDS ORDERED: PIPERACILLIN-TAZOBACTAM 3.375 GM in SODIUM CHLORIDE 0.9% 100 ML IVPB STA (09:42)
[2019-10-10] MEDS ORDERED: NALOXONE 0.4 MG/ML 1 ML VIAL IV PRN (10:18)
[2019-10-10] MEDS ORDERED: ONDANSETRON 4 MG/2 ML VIAL IVP PRN ×2 (10:18→13:54)
[2019-10-10] MEDS ORDERED: HYDROmorphone 0.5 MG/0.5 ML SYRINGE IVP PRN (10:18)
[2019-10-10] MEDS: SODIUM CHLORIDE 0.9% 1,000 ML IV SCH ×2 (11:44→20:56)
[2019-10-10] MEDS: HYDROmorphone 1 MG/ML 1 ML SYRINGE IVP PRN ×5 (11:44→23:58)
[2019-10-10] MEDS: NICOTINE 21MG/24HR PATCH TRANSDERM SCH (13:15)
[2019-10-10] MEDS ORDERED: ACETAMINOPHEN TAB 325 MG TAB PO PRN (13:50)
[2019-10-10] MEDS ORDERED: CALCIUM CARBONATE 500 MG CHEWABLE PO PRN (13:50)
[2019-10-10] MEDS ORDERED: LORazepam 2 MG/ML INJ IV PRN ×2 (13:53)
--- NOTE | 2019-10-10 14:05 | P.HPIM ---
History of Present Illness H&P Date: 10/10/19 Chief Complaint: abdominal Patient is a 49-year-old male with a past medical history of diverticulitis, possible multiple sclerosis, and thin basement membrane disease who presented to the emergency department with complaints of lower abdominal pain. In the ER he underwent extensive evaluation. His found to be tachycardic on arrival with a pulse of 110 but his vital signs were otherwise within normal limits. Laboratory analysis showed white blood cell count of 11.4, glucose 118, calcium 10.5. He underwent a CT abdomen and pelvis which showed diverticulitis, ileus, and a nodule at the right lung base as well as hepatic steatosis. He was started on IV fluids, antiemetics, pain medications, and Zosyn in the emergency department. He still did not have adequate pain control and therefore he was admitted for further management. Of note patient does have a history of a microperforation secondary to a diverticulitis in May 2019. Patient seen and examined at bedside. He states that yesterday he started having lower abdominal pain was diffuse cramping across his right left lower abdomen. Last night the middle the night he woke up with pain and try to Motrin. Today when he woke up he is having severe stabbing pain radiating into both testicles. He is having some associated nausea. He denies any vomiting. No diarrhea or constipation. Of note he states he had diarrhea approximately 2 weeks ago. He reports some chills but hasn't smoking outside in the coming inside recently. He did not take his temperature. He reports that he is having pain all over that is wide spread at this point in time. He also reports that 2 days ago he was having some increasing shortness of breath and was unable to lie flat. He then describes an event where he was having 3 solids to the left of his sternum associated with a flush that went down to his rectal area and then up to the back of his head and then he had numbness and tingling at the base of his call us last approximately 4-5 seconds and he feels he was having an MS flare. He also reports that over the last 2 weeks he is having some left sided foot pain with swelling in his left foot and calf. He does appear he was seen in the ER here and underwent lower extremity venous Doppler which was negative, tib-fib x-ray did show some elongated calcification in the Soft tissue, and foot x-ray showed a small calcaneal spur. Of note patient was hospitalized here in May 2019 secondary to diverticulitis with microperforation. At that point in time his seen by Dr. Hagan was recommended that he had a colonoscopy in 6-8 weeks. However patient did not follow-up with Dr. Brannon has not obtained a primary care physician. He does report that recently he has been drinking 3-4 drinks daily. He has been working almost every day for the last 1 month is just busy for them. He does report his smoking has decreased his he has been unable to smoke on the job site. Review of Systems Pertinent positives and negatives as discussed in HPI, a complete review of systems was performed and all other systems are negative. 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 Smoking Status: Current every day smoker Past Alcohol Use History: Daily Past Drug Use History: None Reported Additional History: lives his , currently working, 3-4 drinks daily at this point in time - Past Family History Mother Family Medical History: Renal Disease Additional Family Medical History / Comment(s): ESRD, lupus, scleroderma, thin basement membrane disease. Father Family Medical History: Respiratory Disorder Additional Family Medical History / Comment(s): Father of interstitial lung disease at the age of 73 yrs. Medications and Allergies Home Medications Medication Instructions Recorded Confirmed Type Cholecalciferol [Vitamin D3 (25 1,000 unit PO DAILY 05/14/19 10/10/19 History Mcg = 1000 Iu)] Cyanocobalamin [Vitamin B-12] 500 mcg PO DAILY 05/14/19 10/10/19 History Ibuprofen [Motrin Ib] 400 - 600 mg PO Q6H PRN 05/14/19 10/10/19 History Omeprazole 20 mg PO DAILY 05/14/19 10/10/19 History Allergies Allergy/AdvReac Type Severity Reaction Status Date / Time ciprofloxacin [From Cipro] Allergy Anaphylaxis Verified 10/10/19 10:10 cephalexin [From Keflex] AdvReac Nausea & Verified 10/10/19 10:10 Vomiting & Diarrhea Iodinated Contrast Media AdvReac Nausea & Verified 10/10/19 10:10 [Iodinated Contrast- Oral Vomiting and IV Dye] lactose AdvReac Nausea & Verified 10/10/19 10:10 Vomiting & Diarrhea Physical Exam Osteopathic Statement: *. No significant issues noted on an osteopathic structural exam other than those noted in the History and Physical/Consult. Vitals: Vital Signs Temp Pulse Pulse Resp BP BP Pulse Ox 10/10/19 12:00 97.9 F 96 17 136/77 92 L 10/10/19 11:31 99 F 77 18 122/77 93 L 10/10/19 11:14 99 F 77 18 122/77 93 L 10/10/19 07:52 97.4 F L 110 H 18 108/64 99 Intake and Output 10/09/19 10/10/19 10/10/19 22:59 06:59 14:59 Other: Voiding Method Toilet # Voids 1 Weight 113.398 kg General: non toxic, no distress, appears at stated age, normal weight Derm: no unusual rashes/lesions no unusual ecchymoses, warm, dry Head: atraumatic, normocephalic, symmetric Eyes: EOMI, no lid lag, anicteric sclera, pupils equal round reactive to light ENT: Nose and ears atraumatic, no thrush, no pharyngeal erythema Neck: No thyromegaly, no cervical lymphadenopathy, trachea midline, supple Mouth: no lip lesion, mucus membranes dry Cardiovascular: S1S2 reg, no murmur, positive posterior tibial pulse bilateral, no edema, capillary refill less than 2 seconds Lungs: Decreased Sounds bilateral, no rhonchi, no rales , no accessory muscle use Abdominal: soft, + tender to palpation diffusely, no guarding, no appreciable organomegaly, normal bowel sounds Ext: no gross muscle atrophy, muscle strength 5 out of 5 in all 4 extremities grossly, no contractures, Neuro: CN II-XI grossly intact, light touch intact all 4 extremities, finger to nose within normal limits, Psych: Alert, oriented, appropriate affect Results CBC & Chem 7: 10/10/19 08:42 10/10/19 08:42 Labs: Abnormal Lab Results - Last 24 Hours (Table) 10/10/19 10/10/19 Range/Units 08:42 08:42 WBC 11.4 H (3.8-10.6) k/uL Neutrophils # 8.8 H (1.3-7.7) k/uL Glucose 118 H (74-99) mg/dL Calcium 10.5 H (8.4-10.2) mg/dL CT scan - abdomen: report reviewed, image reviewed CT scan - pelvis: report reviewed, image reviewed Thrombosis Risk Factor Assmnt - DVT/VTE Prophylaxis DVT/VTE Prophylaxis: Mechanical Prophylaxis ordered, Low risk, early ambulation encouraged - Choose All That Apply Any of the Below Risk Factors Present?: Yes Each Factor Represents 1 point: Age 41-60 years, Obesity (BMI >25) Other Risk Factors: No Other congenital or acquired thrombophilia - If yes, enter type in comment: No Thrombosis Risk Factor Assessment Total Risk Factor Score: 2 Thrombosis Risk Factor Assessment Level: Low Risk Assessment and Plan Assessment: Uncomplicated diverticulitis with intractable pain -IV fluids, Rocephin and Flagyl -Pain medications -Antiemetics -Consult surgery secondary to severity of pain, will need outpatient colonoscopy in 6-8 weeks -Nothing by mouth with ice chips and medications only Tobacco abuse -Cessation -Nicotine replacement Alcohol misuse -[facility] protocol -Thiamine -Folic acid Probable multiple sclerosis -Outpatient follow-up History of thin basement membrane disease -No follow-up needed Possible nodule right base -Repeat CT 6 months The patient is admitted with an anticipated greater than 2 midnight stay for evaluation of Diverticulitis. Surrogate decision-maker: CODE STATUS:full DVT prophylaxis: SCDs Discussed with: Patient, nursing Anticipated discharge date: 2-[address]: home A total of 45 minutes was spent on the care of this complex patient more than 50% of the time was spent in counseling and care coordination.
[2019-10-10] MEDS: PANTOPRAZOLE 40 MG/10 ML VIAL IVP SCH (14:09)
[2019-10-10] MEDS: metroNIDAZOLE 500 MG TAB PO SCH ×2 (16:26→20:55)
[2019-10-10] MEDS: THIAMINE 100 MG TAB PO SCH (16:31)
[2019-10-10 17:12] LABS: Appearance,Urine Clear (Clear); Bilirubin,Urine Negative (Negative); Blood,Urine Moderate (Negative); Color,Urine Yellow; Glucose,Urine (UA) Negative (Negative); Ketones,Urine Negative (Negative); Leukocyte Esterase,Urine Negative (Negative); Mucus,Urine Rare /hpf; Nitrite,Urine Negative (Negative); PH, Urine 6.5 (5.0-8.0); Protein,Urine 1+ (Negative); RBC,Urine 18 /hpf (0-5); Specific Gravity,Urine 1.036 (1.001-1.035); Urobilinogen,Urine <2.0 mg/dL (<2.0)
--- NOTE | 2019-10-10 17:44 | P.GSCN ---
History of Present Illness Consult date: 10/10/19 History of present illness: 49-year-old male presented to the emergency department with complaints of abdominal pain. He states that the pain started late yesterday and worsened throughout the night. He states that the pain is mostly in the lower abdomen and states it is a shooting pain from the groin towards the bellybutton. He was seen by me earlier this year secondary to episode of diverticulitis. At that time, his symptoms improved and he was discharged with anticipation for follow- up for colonoscopy. He did not show up for his appointment at that time. Currently, he states that pain medication is slightly helping his pain. He denies any vomiting episodes but complains of some nausea. He has never had a colonoscopy. He is currently receiving antibiotics with Rocephin and Flagyl. He is noted to have multiple medical comorbidities including possible multiple sclerosis and basement membrane disease. He is known to drink alcohol daily and is a cigarette smoker. 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 Smoking Status: Current every day smoker Past Alcohol Use History: Daily Past Drug Use History: None Reported - Past Family History Mother Family Medical History: Renal Disease Additional Family Medical History / Comment(s): ESRD, lupus, scleroderma, thin basement membrane disease. Father Family Medical History: Respiratory Disorder Additional Family Medical History / Comment(s): Father of interstitial lung disease at the age of 73 yrs. Medications and Allergies Home Medications Medication Instructions Recorded Confirmed Type Cholecalciferol [Vitamin D3 (25 1,000 unit PO DAILY 05/14/19 10/10/19 History Mcg = 1000 Iu)] Cyanocobalamin [Vitamin B-12] 500 mcg PO DAILY 05/14/19 10/10/19 History Ibuprofen [Motrin Ib] 400 - 600 mg PO Q6H PRN 05/14/19 10/10/19 History Omeprazole 20 mg PO DAILY 05/14/19 10/10/19 History Allergies Allergy/AdvReac Type Severity Reaction Status Date / Time ciprofloxacin [From Cipro] Allergy Anaphylaxis Verified 10/10/19 10:10 cephalexin [From Keflex] AdvReac Nausea & Verified 10/10/19 10:10 Vomiting & Diarrhea Iodinated Contrast Media AdvReac Nausea & Verified 10/10/19 10:10 [Iodinated Contrast- Oral Vomiting and IV Dye] lactose AdvReac Nausea & Verified 10/10/19 10:10 Vomiting & Diarrhea Surgical - Exam Osteopathic Statement: *. No significant issues noted on an osteopathic structural exam other than those noted in the History and Physical/Consult. Vital Signs Temp Pulse Resp BP Pulse Ox 97.4 F L 110 H 18 108/64 99 10/10/19 07:52 10/10/19 07:52 10/10/19 07:52 10/10/19 07:52 10/10/19 07:52 - General well developed, well nourished - Eyes PERRL - Neck no bruits, trachea midline - Respiratory normal respiratory effort - Abdomen Soft, tender to palpation in the bilateral lower quadrants of the abdomen, no rebound, no guarding - Psychiatric oriented to time, oriented to person, oriented to place Results - Labs 10/10/19 08:42 10/10/19 08:42 Abnormal Lab Results - Last 24 Hours (Table) 10/10/19 10/10/19 10/10/19 Range/Units 08:42 08:42 16:56 WBC 11.4 H (3.8-10.6) k/uL Neutrophils # 8.8 H (1.3-7.7) k/uL Glucose 118 H (74-99) mg/dL Calcium 10.5 H (8.4-10.2) mg/dL Ur Specific [place] 1.036 H (1.001-1.035) Urine Protein 1+ H (Negative) Urine Blood Moderate H (Negative) Urine RBC 18 H (0-5) /hpf Urine Mucus Rare H (None) /hpf Diabetes panel 10/10/19 Range/Units 08:42 Sodium 138 (137-145) mmol/L Potassium 4.9 (3.5-5.1) mmol/L Chloride 102 (98-107) mmol/L Carbon Dioxide 29 (22-30) mmol/L BUN 20 (9-20) mg/dL Creatinine 1.22 (0.66-1.25) mg/dL Glucose 118 H (74-99) mg/dL Calcium 10.5 H (8.4-10.2) mg/dL AST 46 (17-59) U/L ALT 60 (21-72) U/L Alkaline Phosphatase 106 (38-126) U/L Total Protein 7.1 (6.3-8.2) g/dL Albumin 3.8 (3.5-5.0) g/dL Calcium panel 10/10/19 Range/Units 08:42 Calcium 10.5 H (8.4-10.2) mg/dL Albumin 3.8 (3.5-5.0) g/dL Pituitary panel 10/10/19 Range/Units 08:42 Sodium 138 (137-145) mmol/L Potassium 4.9 (3.5-5.1) mmol/L Chloride 102 (98-107) mmol/L Carbon Dioxide 29 (22-30) mmol/L BUN 20 (9-20) mg/dL Creatinine 1.22 (0.66-1.25) mg/dL Glucose 118 H (74-99) mg/dL Calcium 10.5 H (8.4-10.2) mg/dL Adrenal panel 10/10/19 Range/Units 08:42 Sodium 138 (137-145) mmol/L Potassium 4.9 (3.5-5.1) mmol/L Chloride 102 (98-107) mmol/L Carbon Dioxide 29 (22-30) mmol/L BUN 20 (9-20) mg/dL Creatinine 1.22 (0.66-1.25) mg/dL Glucose 118 H (74-99) mg/dL Calcium 10.5 H (8.4-10.2) mg/dL Total Bilirubin 1.1 (0.2-1.3) mg/dL AST 46 (17-59) U/L ALT 60 (21-72) U/L Alkaline Phosphatase 106 (38-126) U/L Total Protein 7.1 (6.3-8.2) g/dL Albumin 3.8 (3.5-5.0) g/dL Assessment and Plan (1) Acute diverticulitis Narrative/Plan: 49-year-old male with acute, uncomplicated diverticulitis. CT of the abdomen and pelvis was reviewed with no evidence of perforation or abscess formation. We will continue with IV antibiotics of Rocephin and Flagyl and pain control with pain medication. At this time, we will await clinical progress with antibiotics and make any surgical decision based on any clinical changes. As was advised earlier this year, the patient will require a colonoscopy in approximately 6-8 weeks. Continue medical management. Current Visit: Yes Status: Acute Code(s): K57.92 - DVTRCLI OF INTEST, PART UNSP, W/O PERF OR ABSCESS W/O BLEED SNOMED Code(s): 002576777
[2019-10-10] MEDS: HYDROcodone/APAP 5-325MG 1 EACH TAB PO PRN (19:22)
[2019-10-11] MEDS: HYDROcodone/APAP 5-325MG 1 EACH TAB PO PRN ×3 (02:27→10:06)
[2019-10-11] MEDS: HYDROmorphone 1 MG/ML 1 ML SYRINGE IVP PRN ×6 (05:04→23:08)
[2019-10-11] MEDS: SODIUM CHLORIDE 0.9% 1,000 ML IV SCH ×2 (05:04→15:14)
[2019-10-11] MEDS: PANTOPRAZOLE 40 MG/10 ML VIAL IVP SCH (06:48)
[2019-10-11] MEDS: NICOTINE 21MG/24HR PATCH TRANSDERM SCH (06:49)
[2019-10-11] MEDS: MULTIVITAMINS, THERA 1 EACH TAB PO SCH (06:49)
[2019-10-11] MEDS: FOLIC ACID 1 MG TAB PO SCH (06:50)
[2019-10-11] MEDS: THIAMINE 100 MG TAB PO SCH ×2 (06:50→15:09)
[2019-10-11] MEDS: metroNIDAZOLE 500 MG TAB PO SCH ×2 (06:50→15:09)
[2019-10-11 07:25] LABS: HCT 44.6 % (39.0-53.0); HGB 14.2 gm/dL (13.0-17.5); MCH 31.5 pg (25.0-35.0); MCHC 31.8 g/dL (31.0-37.0); MCV 98.8 fL (80.0-100.0); Mean Platelet Volume 6.6; Platelet Count 216 k/uL (150-450); RBC 4.51 m/uL (4.30-5.90); RDW 12.7 % (11.5-15.5); WBC 15.9 k/uL (3.8-10.6)
[2019-10-11 07:37] LABS: African American GFR (CKD) >90 (>60 ml/min/1.73 sqM); Anion Gap 5 mmol/L; Blood Urea Nitrogen 23 mg/dL (9-20); Carbon Dioxide 27 mmol/L (22-30); Chloride 105 mmol/L (98-107); Glucose 119 mg/dL (74-99); Magnesium 1.6 mg/dL (1.6-2.3); Non-African American GFR(CKD) 89 (>60 ml/min/1.73 sqM); Phosphorus 3.3 mg/dL (2.5-4.5); Potassium 4.3 mmol/L (3.5-5.1); Sodium 137 mmol/L (137-145)
--- NOTE | 2019-10-11 10:30 | P.PN ---
Subjective Progress Note Date: 10/11/19 Principal diagnosis: abdominal pain Patient is a 49-year-old male with a past medical history of diverticulitis, possible multiple sclerosis, and thin basement membrane disease who presented to the emergency department with complaints of lower abdominal pain. In the ER he underwent extensive evaluation. His found to be tachycardic on arrival with a pulse of 110 but his vital signs were otherwise within normal limits. Laboratory analysis showed white blood cell count of 11.4, glucose 118, calcium 10.5. He underwent a CT abdomen and pelvis which showed diverticulitis, ileus, and a nodule at the right lung base as well as hepatic steatosis. He was started on IV fluids, antiemetics, pain medications, and Zosyn in the emergency department. He also received 1 dose of IV steroids. He still did not have adequate pain control and therefore he was admitted for further management of his diverticulitis. Of note patient does have a history of a microperforation secondary to a diverticulitis in May 2019. Surgery was consulted who agreed with conservative management for his diverticulitis. Patient seen and examined at bedside. He is still feeling somewhat better than yesterday however he continues to have lower crampy abdominal pain that is sharp and stabbing when the pain medications wear off. He is not having any significant vomiting does report some nausea. No bowel movement since yesterday. He states the pain is no longer radiating into his groin or into his upper abdomen. It is now more localized. He also reported to nursing some right upper shoulder pain. Objective - Vital Signs Vital signs: Vital Signs Temp 97.6 F 10/11/19 06:40 Pulse 76 10/11/19 06:40 Resp 18 10/11/19 06:40 BP 145/91 10/11/19 06:40 Pulse Ox 94 L 10/11/19 06:40 Intake & Output 10/10/19 10/11/19 10/11/19 18:59 06:59 18:59 Intake Total 230 Balance 230 Weight 113.398 kg Intake: Oral 230 Other: Voiding Method Toilet Toilet Urinal # Voids 1 1 1 - Exam General: non toxic, mild distress secondary to pain, appears at stated age Derm: warm, dry Head: atraumatic, normocephalic, symmetric Eyes: EOMI, no lid lag, anicteric sclera Mouth: no lip lesion, mucus membranes moist Cardiovascular: S1S2 reg, no murmur, positive posterior tibial pulse bilateral, Lungs: Decreased breath sounds bilateral , no accessory muscle use Abdominal: soft, + tenderness to palpation right lower quadrant, left lower quadrant, no guarding, no appreciable organomegaly, hypoactive bowel sounds Ext: no gross muscle atrophy, no edema, no contractures Neuro: CN II-XI grossly intact, no focal neuro deficits Psych: Alert, oriented, appropriate affect - Labs CBC & Chem 7: 10/11/19 07:06 10/11/19 07:06 Labs: Abnormal Lab Results - Last 24 Hours (Table) 10/10/19 10/11/19 10/11/19 Range/Units 16:56 07:06 07:06 WBC 15.9 H (3.8-10.6) k/uL BUN 23 H (9-20) mg/dL Glucose 119 H (74-99) mg/dL Ur Specific [place] 1.036 H (1.001-1.035) Urine Protein 1+ H (Negative) Urine Blood Moderate H (Negative) Urine RBC 18 H (0-5) /hpf Urine Mucus Rare H (None) /hpf Assessment and Plan Assessment: Uncomplicated diverticulitis with intractable pain - Worsening WBC count will need to watch closely for developement of sepsis, not appropriate to discharge home at this time. -IV fluids, Rocephin and Flagyl -Pain medications -Antiemetics -Surgery recs appreciated, will need outpatient colonoscopy in 6-8 weeks -Nothing by mouth with ice chips and medications only Tobacco abuse -Cessation -Nicotine replacement Alcohol misuse -[facility] protocol -Thiamine -Folic acid Probable multiple sclerosis -Outpatient follow-up History of thin basement membrane disease -No follow-up needed Possible nodule right base -Repeat CT 6 months DVT prophylaxis: SCDs Discussed with: Patient, nursing Anticipated discharge date: 2-[address]: home A total of 35 minutes was spent on the care of this complex patient more than 50% of the time was spent in counseling and care coordination.
[2019-10-11 10:58] LABS: ALT 39 U/L (21-72); AST 26 U/L (17-59); Total Bilirubin 0.9 mg/dL (0.2-1.3)
--- NOTE | 2019-10-11 11:12 | XR ---
EXAMINATION TYPE: XR chest 1V, XR abdomen 1V DATE OF EXAM: 10/11/2019 COMPARISON: Correlation CT 10/10/2019 HISTORY: 49-year-old male with pain on deep inspiration, right shoulder pain. TECHNIQUE: Single frontal view of the chest and abdomen is obtained. FINDINGS: CHEST: Heart normal size. Aorta and pulmonary vasculature within normal limits. Strandy areas of atelectasis mid and lower lungs. Low lung volumes. Mild to moderate free air below the right hemidiaphragm. No c onsolidation or pleural effusion seen. ABDOMEN: Mild to moderate free air below the right hemidiaphragm was only appreciated on the upright chest rad iographs. Some scattered prominent air-filled small bowel loops measure up to 2.9 cm. Scattered colon ic air and mild colonic stool is present. Degenerative changes lower lumbar spine. Subarticular sclerosis right SI joint suggests underlying de generative change. IMPRESSION: 1. Chest: Hypoventilatory changes with strandy areas of atelectasis. 2. Abdomen: Mild/moderate free air below the right hemidiaphragm. Some borderline distended small bow el loops measuring up to 2.9 cm suggest underlying ileus. Critical finding called to Nurse Mccarty on 4SSUR at 11:08am.
[2019-10-11] MEDS ORDERED: HYDROmorphone 1 MG/ML 1 ML SYRINGE IVP STA (11:57)
--- NOTE | 2019-10-11 12:00 | P.PN ---
Progress Note - Text Progress Note Date: 10/11/19 Called by nursing about results of CXR showing free air under the diaphragm. Called Dr. Hagan who will be up to see the patient shortly. Called back nursing made patient strict NPO.
[2019-10-11] MEDS ORDERED: LORazepam 2 MG/ML INJ IV STA (12:48)
--- NOTE | 2019-10-11 13:26 | P.PN ---
Subjective Progress Note Date: 10/11/19 Patient seen and examined at bedside. He states that this morning he had a significant increase in pain in his bilateral groin and suprapubic region. He states he did feel a significant amount of warmth and then right shoulder pain. Primary team was made aware and x-ray was ordered. X-ray today revealed pneumoperitoneum. He states that his abdominal pain has been steadily increasing throughout the day since that time. His leukocytosis has also increased today. Objective - Vital Signs Vital signs: Vital Signs Temp 97.6 F 10/11/19 11:24 Pulse 94 10/11/19 11:24 Resp 20 10/11/19 11:24 BP 162/84 10/11/19 11:24 Pulse Ox 97 10/11/19 11:24 Intake & Output 10/10/19 10/11/19 10/11/19 18:59 06:59 18:59 Intake Total 230 Balance 230 Weight 113.398 kg Intake: Oral 230 Other: Voiding Method Toilet Toilet Urinal # Voids 1 1 1 - Constitutional General appearance: Present: cooperative, no acute distress - EENT Eyes: Present: PERRLA - Respiratory Details: No difficulty with respiration - Gastrointestinal Gastrointestinal Comment(s): Soft, tender to touch in bilateral lower quadrants, positive rebound tenderness, no guarding - Psychiatric Psychiatric: Present: A&O x's 3 - Labs CBC & Chem 7: 10/11/19 07:06 10/11/19 07:06 Labs: Abnormal Lab Results - Last 24 Hours (Table) 10/10/19 10/11/19 10/11/19 Range/Units 16:56 07:06 07:06 WBC 15.9 H (3.8-10.6) k/uL BUN 23 H (9-20) mg/dL Glucose 119 H (74-99) mg/dL Ur Specific [place] 1.036 H (1.001-1.035) Urine Protein 1+ H (Negative) Urine Blood Moderate H (Negative) Urine RBC 18 H (0-5) /hpf Urine Mucus Rare H (None) /hpf Microbiology - Last 24 Hours (Table) 10/10/19 10:38 Blood Culture - Preliminary Blood No Growth after 24 hours Assessment and Plan (1) Acute diverticulitis Narrative/Plan: Although the patient did present with seemingly uncomplicated diverticulitis on imaging and exam, his clinical symptoms have worsened and he now has pneumoperitoneum with signs of peritonitis. Secondary to this, plan is for exploratory laparotomy with likely bowel resection and ostomy creation, Juan Diego's procedure. I did discuss this in depth with the patient and the patient's . They're both agreeable to the plan. Current Visit: Yes Status: Acute Code(s): K57.92 - DVTRCLI OF INTEST, PART UNSP, W/O PERF OR ABSCESS W/O BLEED SNOMED Code(s): 257705844
--- NOTE | 2019-10-11 13:52 | US ---
EXAMINATION TYPE: US gallbladder DATE OF EXAM: 10/11/2019 COMPARISON: EXAMINATION TYPE: US gallbladder DATE OF EXAM: 10/11/2019 COMPARISON: CT abdomen and pelvis one day ago. CLINICAL HISTORY: pain. RUQ Pain EXAM MEASUREMENTS: Liver Length: 18.3 cm Gallbladder Wall: .2 cm CBD: .5 cm Right Kidney: 11.7 x 5.2 x 5.3 cm Pancreas: Obscured by bowel gas Liver: Increased attenuation Gallbladder: No stones seen Evidence for sonographic Nunes's sign: No CBD: wnl Right Kidney: Multiple cysts seen largest 4.1 x 3.3 x 3.1 cm Pancreas suboptimally evaluated images saved secondary to shadowing from bowel gas. IVC seen in the h epatic dome. Visualized liver is heterogeneously hyperechoic consistent with diffuse fatty infiltrati on. Gallbladder is seen without shadowing mobile gallstones. Simple appearing thin-walled cyst measur ing 3 to 4 cm are redemonstrated upper pole level right kidney. IMPRESSION: No shadowing mobile gallstones or ultrasonographic evidence for acute cholecystitis.
[2019-10-11] MEDS ORDERED: MIDAZOLAM 2 MG/2 ML VIAL ONE (15:51)
[2019-10-11] MEDS ORDERED: HYDROmorphone (PF) 1 MG/ML ONE (15:51)
[2019-10-11] MEDS ORDERED: ROCURONIUM BROMIDE 10 MG/ML 10 ML VIAL IV ONE (15:51)
[2019-10-11] MEDS ORDERED: LIDOCAINE 1% INJ 10MG/ML (20 ML MDV) ONE (15:51)
[2019-10-11] MEDS ORDERED: NEOSTIGMINE 1 MG/ML 10 ML VIAL ONE (15:51)
[2019-10-11] MEDS ORDERED: PHENYLEPHRINE-0.9% NACL SYG 1 MG/10 ML SYRINGE ONE (15:51)
[2019-10-11] MEDS ORDERED: SUCCINYLCHOLINE CHLORIDE 100 MG/5 ML SYR IV ONE (15:51)
[2019-10-11] MEDS ORDERED: fentaNYL (PF) 50 MCG/ML 2 ML AMP ONE (15:51)
[2019-10-11] MEDS ORDERED: GLYCOPYRROLATE 0.2 MG/ML 2 ML VIAL ONE (15:51)
[2019-10-11] MEDS ORDERED: PROPOFOL 10 MG/ML 20 ML VIAL IV ONE (15:51)
[2019-10-11] MEDS ORDERED: IV FLUID CONTINUATION 1,000 ML IV ONE ×2 (16:09)
[2019-10-11] MEDS ORDERED: metroNIDAZOLE-NS PMX 500 MG in SALINE 1 100ML.BAG IVPB STA (16:45)
[2019-10-11] MEDS ORDERED: LACTATED RINGERS 1,000 ML IV ONE ×2 (18:13→18:54)
--- NOTE | 2019-10-11 18:35 | P.OP ---
Date of Procedure: 10/11/19 Preoperative Diagnosis: Pneumoperitoneum Perforated diverticulitis Postoperative Diagnosis: Pneumoperitoneum Perforated diverticulitis Procedure(s) Performed: Martin's procedure, sigmoid colectomy with end ostomy creation Anesthesia: MARI Surgeon: Monae Hagan Pathology: other (Sigmoid colon, culture of intra-abdominal fluid) Condition: stable Disposition: floor Indications for Procedure: This is a 49-year-old male that presented to the emergency department with complaints of abdominal pain. He initially was found to have uncomplicated diverticulitis. He was started on antibiotics and was noted to clinically worsen with symptomatology. X-ray was performed one day after admission with finding of pneumoperitoneum. On exam, he began to show increasing signs of peritonitis and plan was for laparotomy with anticipated Martin's procedure. The patient was excellent the risks, benefits and alternatives to the procedure and did provide consent prior to attending the operating suite. Operative Findings: Perforated sigmoid colon with surrounding exudate and purulence within the abdomen Description of Procedure: The patient was brought to the operating suite and placed in supine position on the operating table. Sedation was provided by anesthesia and the patient underwent endotracheal intubation. Nasogastric tube and Granados catheter were placed. The patient was then prepped and draped in regular sterile fashion. A midline incision was made and dissection was carried down to the fascia. The fascia was incised along the length of the incision. Immediate turbid fluid was noted in the pelvis. Cultures of the fluid were taken. Bookwalter retractor was put into place. The sigmoid colon was noted to have a significant amount of inflammatory changes and was noted to be hard to the touch. Surrounding exudate was noted. The sigmoid colon was adhered to surrounding tissue. Metzenbaum scissors were used to dissect the sigmoid colon from surrounding tissue structure. Healthy proximal and distal ends of the colon were palpated. Stapler device was used to staple across the healthy proximal and after a window was created in the mesentery. LigaSure device was used to divide the mesentery towards the distal healthy end and a stapler device was used to resect this portion of the colon. The distal rectal stump was tagged with a 2-0 Prolene suture. Copious amounts irrigation was placed into the pelvis and suctioned. A DIANA drain was also placed in the pelvis and secured with a 2-0 nylon suture to the skin in the right lower quadrant. Dissection was then carried around the white line of Toldt of the left colon for the anticipated colostomy. A incision was made in the left mid abdomen and dissection was carried towards the fascia. The fascia was incised in a cruciate manner and the underlying muscle was divid ed with hemostat and the peritoneum was incised. The proximal end of the colon was then brought through this anticipated ostomy site without any significant obstructive process. It was noted to have appropriate give. At this point the midline incision was closed with a running Prolene suture in the fascial layer. Skin incision was then closed with skin brandy. The ostomy site was then matured in standard Shira fashion. Sterile dressings were applied. The patient was awakened in the operating suite and taken to postanesthesia care unit in stable condition.
[2019-10-11] MEDS ORDERED: HYDROmorphone 1 MG/ML 1 ML SYRINGE IVP ONE ×4 (18:43→19:00)
[2019-10-11] MEDS ORDERED: fentaNYL (PF) 50 MCG/ML 2 ML AMP IVP ONE ×2 (19:01→19:17)
[2019-10-11] MEDS: LORazepam 2 MG/ML INJ IV PRN (19:56)
[2019-10-11] MEDS: metroNIDAZOLE-NS PMX 500 MG in SALINE 1 100ML.BAG IVPB SCH (23:10)
[2019-10-11] MEDS: HEPARIN SODIUM,PORCINE 5,000 UNIT/ML 1 ML VIAL SQ SCH (23:12)
[2019-10-12] MEDS: KETOROLAC 30 MG/ML 1 ML VIAL IVP SCH ×5 (00:35→23:05)
[2019-10-12] MEDS: HYDROmorphone 1 MG/ML 1 ML SYRINGE IVP PRN ×2 (02:22→05:30)
[2019-10-12] MEDS: SODIUM CHLORIDE 0.9% 1,000 ML IV SCH ×3 (03:57→17:24)
[2019-10-12] MEDS: NICOTINE 21MG/24HR PATCH TRANSDERM SCH (05:35)
[2019-10-12] MEDS: LORazepam 2 MG/ML INJ IV PRN ×3 (07:34→20:21)
[2019-10-12] MEDS ORDERED: BENZONATATE 100 MG CAP PO PRN (08:28)
[2019-10-12] MEDS ORDERED: BENZOCAINE/MENTHOL LOZENG 1 EACH LOZENGE MUCOUS MEM PRN (08:28)
[2019-10-12] MEDS ORDERED: BENZOCAINE SPRAY 1 CAN MUCOUS MEM PRN (08:28)
[2019-10-12] MEDS ORDERED: NALOXONE 0.4 MG/ML 1 ML VIAL IV PRN (08:29)
[2019-10-12] MEDS: HYDROmorphone PCA 10 MG/50 ML BAG IV PRN (09:20)
[2019-10-12] MEDS: PANTOPRAZOLE 40 MG/10 ML VIAL IVP SCH (09:35)
[2019-10-12] MEDS: metroNIDAZOLE-NS PMX 500 MG in SALINE 1 100ML.BAG IVPB SCH ×3 (09:36→23:06)
[2019-10-12] MEDS: THIAMINE 100 MG TAB PO SCH ×2 (09:37→17:21)
[2019-10-12] MEDS: HEPARIN SODIUM,PORCINE 5,000 UNIT/ML 1 ML VIAL SQ SCH ×3 (09:37→23:05)
[2019-10-12] MEDS: MULTIVITAMINS, THERA 1 EACH TAB PO SCH (09:37)
[2019-10-12] MEDS: FOLIC ACID 1 MG TAB PO SCH (09:37)
--- NOTE | 2019-10-12 10:24 | P.PN ---
Subjective Progress Note Date: 10/12/19 Principal diagnosis: abdominal pain Patient is a 49-year-old male with a past medical history of diverticulitis, possible multiple sclerosis, and thin basement membrane disease who presented to the emergency department with complaints of lower abdominal pain. In the ER he underwent extensive evaluation. His found to be tachycardic on arrival with a pulse of 110 but his vital signs were otherwise within normal limits. Laboratory analysis showed white blood cell count of 11.4, glucose 118, calcium 10.5. He underwent a CT abdomen and pelvis which showed diverticulitis, ileus, and a nodule at the right lung base as well as hepatic steatosis. He was started on IV fluids, antiemetics, pain medications, and Zosyn in the emergency department. He also received 1 dose of IV steroids. He still did not have adequate pain control and therefore he was admitted for further management of his diverticulitis. Of note patient does have a history of a microperforation secondary to a diverticulitis in May 2019. Surgery was consulted who agreed with conservative management for his diverticulitis. He had an increase in his abdominal pain on 10/11 and right shoulder pain. CXR showed air under the diaphragm. He was take to surgery on 10/[address] Hagan he underwet sigmoid colectomy with formation of ostomy and Martin's pouch. He tolerated the procedure well and returned with ostomy bag and NGT in place. Patient seen and examined at bedside. He complais of a sore throat secondary to his nasogastric tube, sore throat, cough, increased abdominal pain that is worse than yesterday. He is stating that he will remove his own NGT if something is not doen to help him feel more comfortable. D/W Dr. Hagan we will try SENIOR PASTOR to see if that helps to relieve increased pain Objective - Vital Signs Vital signs: Vital Signs Temp 98.3 F 10/12/19 07:00 Pulse 98 10/12/19 07:00 Resp 17 10/12/19 07:00 BP 127/81 10/12/19 07:00 Pulse Ox 91 L 10/12/19 07:00 Intake & Output 10/11/19 10/12/19 10/12/19 18:59 06:59 18:59 Intake Total 1950 0 Output Total 350 740 Balance 1600 -740 Intake: IV 1950 Oral 0 Output: Drainage 50 Abdomen 50 Urine 250 650 Estimated Blood Loss 100 40 Other: Voiding Method Indwelling Catheter # Voids 1 1 - Exam General: non toxic, moderate distress secondary to pain, appears at stated age Derm: warm, dry Head: atraumatic, normocephalic, symmetric Eyes: EOMI, no lid lag, anicteric sclera Mouth: no lip lesion, mucus membranes moist Cardiovascular: S1S2 reg, no murmur, positive posterior tibial pulse bilateral, Lungs: Decreased breath sounds bilateral , no accessory muscle use Abdominal: soft, + tenderness to palpation throughout stomach,+ guarding, no appreciable organomegaly, hypoactive bowel sounds, DIANA drain inplace, midline dressing, and ostomy bag. Ext: no gross muscle atrophy, trace edema, no contractures Neuro: CN II-XI grossly intact, no focal neuro deficits Psych: Alert, oriented, angry - Labs CBC & Chem 7: 10/11/19 07:06 10/11/19 07:06 Labs: Abnormal Lab Results - Last 24 Hours (Table) 10/11/19 Range/Units 07:06 BUN 23 H (9-20) mg/dL Glucose 119 H (74-99) mg/dL Microbiology - Last 24 Hours (Table) 10/11/19 18:12 Gram Stain - Preliminary Abdomen Wound Culture - Preliminary 10/11/19 18:12 Anaerobic Culture - Preliminary Abdomen 10/10/19 10:38 Blood Culture - Preliminary Blood No Growth after 24 hours Assessment and Plan Assessment: Diverticulitis with perforation and peritonitis s/p sigmoid resection and ostomy formation 10/11 -IV fluids, Rocephin and Flagyl -Change to SENIOR PASTOR - Add benzocaine spray and lozenge to help with discomfort from NGT -Antiemetics -Surgery recs appreciated - outpatient colonoscopy in 6-8 weeks -Nothing by mouth, NGT in placed Tobacco abuse -Cessation -Nicotine replacement Alcohol misuse -[facility] protocol -Thiamine -Folic acid Probable multiple sclerosis -Outpatient follow-up History of thin basement membrane disease -No follow-up needed Possible nodule right base -Repeat CT 6 months Social stressor - no insurance DVT prophylaxis: SCDs Discussed with: Patient, nursing Anticipated discharge date: 3-[address]: home A total of 35 minutes was spent on the care of this complex patient more than 50% of the time was spent in counseling and care coordination.
--- NOTE | 2019-10-12 11:33 | P.PN ---
Subjective Progress Note Date: 10/12/19 Patient seen and examined at bedside. States that he is in pain at his surgical incision site and in the back of his throat due to his nasogastric tube. Denies any nausea vomiting. No output from the ostomy. Objective - Vital Signs Vital signs: Vital Signs Temp 98.3 F 10/12/19 07:00 Pulse 98 10/12/19 07:00 Resp 17 10/12/19 07:00 BP 127/81 10/12/19 07:00 Pulse Ox 91 L 10/12/19 07:00 Intake & Output 10/11/19 10/12/19 10/12/19 18:59 06:59 18:59 Intake Total 1950 0 Output Total 350 740 Balance 1600 -740 Intake: IV 1950 Oral 0 Output: Drainage 50 Abdomen 50 Urine 250 650 Estimated Blood Loss 100 40 Other: Voiding Method Indwelling Catheter # Voids 1 1 - Constitutional General appearance: Present: cooperative, no acute distress - Gastrointestinal Gastrointestinal Comment(s): Soft, appropriate tenderness, nondistended, no rebound, no guarding, ostomy is pink and mildly edematous, Midline incision site with surgical dressing in place - Psychiatric Psychiatric: Present: A&O x's 3 - Labs CBC & Chem 7: 10/11/19 07:06 10/11/19 07:06 Labs: Microbiology - Last 24 Hours (Table) 10/11/19 18:12 Gram Stain - Preliminary Abdomen Wound Culture - Preliminary 10/11/19 18:12 Anaerobic Culture - Preliminary Abdomen 10/10/19 10:38 Blood Culture - Preliminary Blood No Growth after 24 hours Assessment and Plan (1) Acute diverticulitis Narrative/Plan: Postoperative day #1, Martin's procedure - Continue nasogastric tube, will add benzocaine spray secondary to patient's discomfort with nasogastric tube. I did have a long discussion about the importance of the nasogastric decompression with the dilation of his small bowel and likely ileus due to diverticulitis and inflammatory changes within the abdomen. - Discussed the case with primary medical team, will add FINAL INSTALLER INSPECTOR for more pain control. Patient did threaten to leave AMA without any changes to his pain regimen. I did discuss this with the patient and he did refuse epidural prior to the procedure. - Continue IV antibiotics - Patient is currently refusing any laboratory draws Current Visit: Yes Status: Acute Code(s): K57.92 - DVTRCLI OF INTEST, PART UNSP, W/O PERF OR ABSCESS W/O BLEED SNOMED Code(s): 953331153
[2019-10-12 14:15] LABS: Basophils % (A) 0 %; Eosinophils # (A) 0.2 k/uL (0-0.7); Eosinophils % (A) 2 %; HCT 37.7 % (39.0-53.0); HGB 12.7 gm/dL (13.0-17.5); Lymphocytes # (A) 0.8 k/uL (1.0-4.8); Lymphocytes % (A) 8 %; MCH 32.9 pg (25.0-35.0); MCHC 33.7 g/dL (31.0-37.0); MCV 97.8 fL (80.0-100.0); Mean Platelet Volume 6.6; Monocytes # (A) 0.9 k/uL (0-1.0); Monocytes % (A) 9 %; Neutrophils # (A) 7.9 k/uL (1.3-7.7); Neutrophils % (A) 80 %; Platelet Count 209 k/uL (150-450); RBC 3.86 m/uL (4.30-5.90); RDW 12.7 % (11.5-15.5); WBC 9.9 k/uL (3.8-10.6)
[2019-10-12 14:36] LABS: ALT 31 U/L (21-72); AST 23 U/L (17-59); African American GFR (CKD) >90 (>60 ml/min/1.73 sqM); Albumin 2.4 g/dL (3.5-5.0); Alkaline Phosphatase 56 U/L (38-126); Anion Gap 3 mmol/L; Blood Urea Nitrogen 26 mg/dL (9-20); Calcium 8.3 mg/dL (8.4-10.2); Carbon Dioxide 26 mmol/L (22-30); Chloride 109 mmol/L (98-107); Glucose 96 mg/dL (74-99); Magnesium 1.7 mg/dL (1.6-2.3); Non-African American GFR(CKD) 80 (>60 ml/min/1.73 sqM); Phosphorus 3.4 mg/dL (2.5-4.5); Potassium 4.1 mmol/L (3.5-5.1); Sodium 138 mmol/L (137-145); Total Bilirubin 0.7 mg/dL (0.2-1.3)
[2019-10-12] MEDS: MELATONIN 3 MG TABLET PO PRN (23:06)
[2019-10-13] MEDS: SODIUM CHLORIDE 0.9% 1,000 ML IV SCH ×3 (01:39→18:57)
[2019-10-13] MEDS: HYDROmorphone PCA 10 MG/50 ML BAG IV PRN (02:20)
[2019-10-13] MEDS: KETOROLAC 30 MG/ML 1 ML VIAL IVP SCH (05:23)
[2019-10-13] MEDS: THIAMINE 100 MG TAB PO SCH ×2 (07:38→18:22)
[2019-10-13] MEDS: FOLIC ACID 1 MG TAB PO SCH (07:39)
[2019-10-13] MEDS: MULTIVITAMINS, THERA 1 EACH TAB PO SCH (07:39)
[2019-10-13] MEDS: NICOTINE 21MG/24HR PATCH TRANSDERM SCH (07:46)
[2019-10-13] MEDS: PANTOPRAZOLE 40 MG/10 ML VIAL IVP SCH (07:46)
[2019-10-13] MEDS: HEPARIN SODIUM,PORCINE 5,000 UNIT/ML 1 ML VIAL SQ SCH ×3 (07:47→23:41)
[2019-10-13] MEDS: metroNIDAZOLE-NS PMX 500 MG in SALINE 1 100ML.BAG IVPB SCH ×3 (07:47→23:44)
[2019-10-13 08:14] LABS: Basophils % (A) 0 %; Eosinophils # (A) 0.4 k/uL (0-0.7); Eosinophils % (A) 4 %; HCT 36.3 % (39.0-53.0); HGB 12.2 gm/dL (13.0-17.5); Lymphocytes # (A) 0.6 k/uL (1.0-4.8); Lymphocytes % (A) 7 %; MCH 32.6 pg (25.0-35.0); MCHC 33.5 g/dL (31.0-37.0); MCV 97.4 fL (80.0-100.0); Mean Platelet Volume 6.2; Monocytes # (A) 0.8 k/uL (0-1.0); Monocytes % (A) 10 %; Neutrophils # (A) 6.3 k/uL (1.3-7.7); Neutrophils % (A) 77 %; Platelet Count 225 k/uL (150-450); RBC 3.73 m/uL (4.30-5.90); RDW 12.4 % (11.5-15.5); WBC 8.2 k/uL (3.8-10.6)
[2019-10-13 08:26] LABS: ALT 27 U/L (21-72); AST 20 U/L (17-59); African American GFR (CKD) >90 (>60 ml/min/1.73 sqM); Albumin 2.2 g/dL (3.5-5.0); Alkaline Phosphatase 58 U/L (38-126); Anion Gap 4 mmol/L; Blood Urea Nitrogen 25 mg/dL (9-20); Carbon Dioxide 26 mmol/L (22-30); Chloride 110 mmol/L (98-107); Glucose 88 mg/dL (74-99); Non-African American GFR(CKD) 83 (>60 ml/min/1.73 sqM); Potassium 3.8 mmol/L (3.5-5.1); Sodium 140 mmol/L (137-145); Total Bilirubin 0.5 mg/dL (0.2-1.3); Total Protein 4.8 g/dL (6.3-8.2)
--- NOTE | 2019-10-13 10:10 | P.PN ---
Subjective Progress Note Date: 10/13/19 Principal diagnosis: abdominal pain Patient is a 49-year-old male with a past medical history of diverticulitis, possible multiple sclerosis, and thin basement membrane disease who presented to the emergency department with complaints of lower abdominal pain. In the ER he underwent extensive evaluation. His found to be tachycardic on arrival with a pulse of 110 but his vital signs were otherwise within normal limits. Laboratory analysis showed white blood cell count of 11.4, glucose 118, calcium 10.5. He underwent a CT abdomen and pelvis which showed diverticulitis, ileus, and a nodule at the right lung base as well as hepatic steatosis. He was started on IV fluids, antiemetics, pain medications, and Zosyn in the emergency department. He also received 1 dose of IV steroids. He still did not have adequate pain control and therefore he was admitted for further management of his diverticulitis. Of note patient does have a history of a microperforation secondary to a diverticulitis in May 2019. Surgery was consulted who agreed with conservative management for his diverticulitis. He had an increase in his abdominal pain on 10/11 and right shoulder pain. CXR showed air under the diaphragm. He was take to surgery on 10/[address] Hagan he underwet sigmoid colectomy with formation of ostomy and Martin's pouch. He tolerated the procedure well and returned with ostomy bag and NGT in place. Patient was having pain control issues and started on VEHICLE TECHNICIAN and toradol. Patient seen and examined at bedside. States that pain control still is not sufficient. He reports that he is having depressed button too many times in order to achieve adequate pain control and insulin is waking him up immediately after he falls asleep. Denies any nausea or vomiting. Still having significant NG tube output that is brown colored, has liquid in ostomy bag a very small amount. D/W Dr. Hagan we will try VEHICLE TECHNICIAN to see if that helps to relieve increased pain Objective - Vital Signs Vital signs: Vital Signs Temp 98.1 F 10/13/19 07:34 Pulse 79 10/13/19 07:34 Resp 16 10/13/19 07:34 BP 143/79 10/13/19 07:34 Pulse Ox 94 L 10/13/19 07:34 Intake & Output 10/12/19 10/13/19 10/13/19 18:59 06:59 18:59 Intake Total 1100 30 Output Total 30 140 Balance 1070 -110 Intake: Intake, IV Titration 1100 Amount Sodium Chloride 0.9% 1, 1000 000 ml @ 125 mls/hr IV . Q8H KOBE Rx#:[id number] metroNIDAZOLE-NS PMX 500 100 mg In Saline 1 100ml.bag @ 100 mls/hr IVPB Q8HR KOBE Rx#:[id number] Oral 30 Output: Gastric Drainage 100 Drainage 30 40 Abdomen 30 40 Other: Voiding Method Indwelling Catheter Indwelling Catheter Indwelling Catheter # Voids 1 - Exam General: non toxic, moderate distress secondary to pain, appears at stated age Derm: warm, dry Head: atraumatic, normocephalic, symmetric Eyes: EOMI, no lid lag, anicteric sclera Mouth: no lip lesion, mucus membranes moist Cardiovascular: S1S2 reg, no murmur, positive posterior tibial pulse bilateral, Lungs: Decreased breath sounds bilateral , no accessory muscle use Abdominal: soft, + tenderness to palpation throughout stomach, no guarding, no appreciable organomegaly, hypoactive bowel sounds, DIANA drain inplace, midline dressing, and ostomy bag. Ext: no gross muscle atrophy, trace edema, no contractures Neuro: CN II-XI grossly intact, no focal neuro deficits Psych: Alert, oriented, angry - Labs CBC & Chem 7: 10/13/19 07:48 10/13/19 07:48 Labs: Abnormal Lab Results - Last 24 Hours (Table) 10/12/19 10/12/19 10/13/19 Range/Units 14:04 14:04 07:48 RBC 3.86 L 3.73 L (4.30-5.90) m/uL Hgb 12.7 L 12.2 L (13.0-17.5) gm/dL Hct 37.7 L 36.3 L (39.0-53.0) % Neutrophils # 7.9 H (1.3-7.7) k/uL Lymphocytes # 0.8 L 0.6 L (1.0-4.8) k/uL Chloride 109 H (98-107) mmol/L BUN 26 H (9-20) mg/dL Calcium 8.3 L (8.4-10.2) mg/dL Total Protein 5.0 L (6.3-8.2) g/dL Albumin 2.4 L (3.5-5.0) g/dL 10/13/19 Range/Units 07:48 RBC (4.30-5.90) m/uL Hgb (13.0-17.5) gm/dL Hct (39.0-53.0) % Neutrophils # (1.3-7.7) k/uL Lymphocytes # (1.0-4.8) k/uL Chloride 110 H (98-107) mmol/L BUN 25 H (9-20) mg/dL Calcium 8.0 L (8.4-10.2) mg/dL Total Protein 4.8 L (6.3-8.2) g/dL Albumin 2.2 L (3.5-5.0) g/dL Microbiology - Last 24 Hours (Table) 10/11/19 18:12 Gram Stain - Preliminary Abdomen Wound Culture - Preliminary Gram Neg Bacilli 10/10/19 10:38 Blood Culture - Preliminary Blood No Growth after 48 hours Assessment and Plan Assessment: Diverticulitis with perforation and peritonitis s/p sigmoid resection and ostomy formation 10/11 -IV fluids, Rocephin and Flagyl -VEHICLE TECHNICIAN adjusted -Benzocaine spray and lozenge to help with discomfort from NGT -Antiemetics -Surgery recs appreciated -Outpatient colonoscopy in 6-8 weeks -Nothing by mouth, NGT in placed Tobacco abuse -Cessation -Nicotine replacement Alcohol misuse -[facility] protocol -Thiamine -Folic acid Probable multiple sclerosis -Outpatient follow-up History of thin basement membrane disease -No follow-up needed Possible nodule right base -Repeat CT 6 months Social stressor - no insurance DVT prophylaxis: SCDs Discussed with: Patient, nursing Anticipated discharge date: 3-[address]: home A total of 35 minutes was spent on the care of this complex patient more than 50% of the time was spent in counseling and care coordination.
--- NOTE | 2019-10-13 12:38 | P.PN ---
Subjective Progress Note Date: 10/13/19 Patient seen and examined at bedside. States he is feeling better than yesterday. Still having pain at incision site. He has had flatus into his ostomy bag that I did witness at bedside. Graandos catheter is still in place. Objective - Vital Signs Vital signs: Vital Signs Temp 98.1 F 10/13/19 07:34 Pulse 79 10/13/19 07:34 Resp 16 10/13/19 07:34 BP 143/79 10/13/19 07:34 Pulse Ox 94 L 10/13/19 07:34 Intake & Output 10/12/19 10/13/19 10/13/19 18:59 06:59 18:59 Intake Total 1100 30 Output Total 30 140 Balance 1070 -110 Intake: Intake, IV Titration 1100 Amount Sodium Chloride 0.9% 1, 1000 000 ml @ 125 mls/hr IV . Q8H KOBE Rx#:[id number] metroNIDAZOLE-NS PMX 500 100 mg In Saline 1 100ml.bag @ 100 mls/hr IVPB Q8HR KOBE Rx#:[id number] Oral 30 Output: Gastric Drainage 100 Drainage 30 40 Abdomen 30 40 Other: Voiding Method Indwelling Catheter Indwelling Catheter Indwelling Catheter # Voids 1 - Constitutional General appearance: Present: cooperative, no acute distress - EENT Eyes: Present: PERRLA - Gastrointestinal Gastrointestinal Comment(s): Soft, appropriate tenderness, nondistended, no rebound, no guarding, ostomy is pink and patent, midline incision with brandy in place, DIANA drain in place with serosanguineous output - Musculoskeletal Musculoskeletal: Present: generalized weakness - Psychiatric Psychiatric: Present: A&O x's 3 - Labs CBC & Chem 7: 10/13/19 07:48 10/13/19 07:48 Labs: Abnormal Lab Results - Last 24 Hours (Table) 10/12/19 10/12/19 10/13/19 Range/Units 14:04 14:04 07:48 RBC 3.86 L 3.73 L (4.30-5.90) m/uL Hgb 12.7 L 12.2 L (13.0-17.5) gm/dL Hct 37.7 L 36.3 L (39.0-53.0) % Neutrophils # 7.9 H (1.3-7.7) k/uL Lymphocytes # 0.8 L 0.6 L (1.0-4.8) k/uL Chloride 109 H (98-107) mmol/L BUN 26 H (9-20) mg/dL Calcium 8.3 L (8.4-10.2) mg/dL Total Protein 5.0 L (6.3-8.2) g/dL Albumin 2.4 L (3.5-5.0) g/dL 10/13/19 Range/Units 07:48 RBC (4.30-5.90) m/uL Hgb (13.0-17.5) gm/dL Hct (39.0-53.0) % Neutrophils # (1.3-7.7) k/uL Lymphocytes # (1.0-4.8) k/uL Chloride 110 H (98-107) mmol/L BUN 25 H (9-20) mg/dL Calcium 8.0 L (8.4-10.2) mg/dL Total Protein 4.8 L (6.3-8.2) g/dL Albumin 2.2 L (3.5-5.0) g/dL Microbiology - Last 24 Hours (Table) 10/11/19 18:12 Gram Stain - Preliminary Abdomen Wound Culture - Preliminary Gram Neg Bacilli 10/10/19 10:38 Blood Culture - Preliminary Blood No Growth after 48 hours Assessment and Plan (1) Acute diverticulitis Narrative/Plan: Postoperative day #2, Martin's procedure - Patient is having flatus through the ostomy. Okay to clamp NG tube with a trial of clear liquid diet. If patient tolerates, we will remove NG tube. - WALL COVERING INSTALLER continued - Remove Garnados catheter - Continue IV antibiotics - Progressing slowly Current Visit: Yes Status: Acute Code(s): K57.92 - DVTRCLI OF INTEST, PART UNSP, W/O PERF OR ABSCESS W/O BLEED SNOMED Code(s): 994421806
[2019-10-13 16:35] LABS: Glucose,Whole Blood 87 mg/dL (75-99)
[2019-10-13] MEDS: LORazepam 2 MG/ML INJ IV PRN (16:35)
[2019-10-13] MEDS ORDERED: KETOROLAC 30 MG/ML 1 ML VIAL IVP ONE (16:40)
[2019-10-14] MEDS: HYDROcodone/APAP 5-325MG 1 EACH TAB PO PRN ×3 (00:41→09:28)
[2019-10-14] MEDS: LORazepam 2 MG/ML INJ IV PRN ×3 (00:42→21:44)
[2019-10-14] MEDS: SODIUM CHLORIDE 0.9% 1,000 ML IV SCH ×2 (05:47→07:02)
[2019-10-14] MEDS: MULTIVITAMINS, THERA 1 EACH TAB PO SCH (07:00)
[2019-10-14] MEDS: metroNIDAZOLE-NS PMX 500 MG in SALINE 1 100ML.BAG IVPB SCH ×3 (07:01→23:49)
[2019-10-14] MEDS: FOLIC ACID 1 MG TAB PO SCH (07:01)
[2019-10-14] MEDS: HEPARIN SODIUM,PORCINE 5,000 UNIT/ML 1 ML VIAL SQ SCH ×4 (07:01→23:50)
[2019-10-14] MEDS: THIAMINE 100 MG TAB PO SCH ×2 (07:01→16:25)
[2019-10-14] MEDS: PANTOPRAZOLE 40 MG/10 ML VIAL IVP SCH (07:02)
[2019-10-14] MEDS: NICOTINE 21MG/24HR PATCH TRANSDERM SCH (07:08)
[2019-10-14 07:32] LABS: Basophils % (A) 0 %; Eosinophils # (A) 0.5 k/uL (0-0.7); Eosinophils % (A) 8 %; HCT 35.5 % (39.0-53.0); Lymphocytes # (A) 0.4 k/uL (1.0-4.8); Lymphocytes % (A) 6 %; MCH 32.7 pg (25.0-35.0); MCHC 33.8 g/dL (31.0-37.0); MCV 96.8 fL (80.0-100.0); Mean Platelet Volume 7.3; Monocytes # (A) 0.7 k/uL (0-1.0); Monocytes % (A) 11 %; Neutrophils % (A) 73 %; Platelet Count 250 k/uL (150-450); RBC 3.67 m/uL (4.30-5.90); RDW 12.4 % (11.5-15.5); WBC 6.8 k/uL (3.8-10.6)
[2019-10-14 07:45] LABS: ALT 25 U/L (21-72); AST 21 U/L (17-59); African American GFR (CKD) >90 (>60 ml/min/1.73 sqM); Alkaline Phosphatase 49 U/L (38-126); Anion Gap 4 mmol/L; Blood Urea Nitrogen 19 mg/dL (9-20); Calcium 7.7 mg/dL (8.4-10.2); Carbon Dioxide 24 mmol/L (22-30); Chloride 112 mmol/L (98-107); Glucose 88 mg/dL (74-99); Magnesium 1.6 mg/dL (1.6-2.3); Non-African American GFR(CKD) >90 (>60 ml/min/1.73 sqM); Phosphorus 3.6 mg/dL (2.5-4.5); Potassium 3.5 mmol/L (3.5-5.1); Sodium 140 mmol/L (137-145); Total Bilirubin 0.5 mg/dL (0.2-1.3); Total Protein 4.4 g/dL (6.3-8.2)
--- NOTE | 2019-10-14 10:37 | P.PN ---
Subjective Progress Note Date: 10/14/19 Principal diagnosis: abdominal pain Patient is a 49-year-old male with a past medical history of diverticulitis, possible multiple sclerosis, and thin basement membrane disease who presented to the emergency department with complaints of lower abdominal pain. In the ER he underwent extensive evaluation. His found to be tachycardic on arrival with a pulse of 110 but his vital signs were otherwise within normal limits. Laboratory analysis showed white blood cell count of 11.4, glucose 118, calcium 10.5. He underwent a CT abdomen and pelvis which showed diverticulitis, ileus, and a nodule at the right lung base as well as hepatic steatosis. He was started on IV fluids, antiemetics, pain medications, and Zosyn in the emergency department. He also received 1 dose of IV steroids. He still did not have adequate pain control and therefore he was admitted for further management of his diverticulitis. Of note patient does have a history of a microperforation secondary to a diverticulitis in May 2019. Surgery was consulted who agreed with conservative management for his diverticulitis. He had an increase in his abdominal pain on 10/11 and right shoulder pain. CXR showed air under the diaphragm. He was take to surgery on 10/[address] Hagan he underwet sigmoid colectomy with formation of ostomy and Martin's pouch. He tolerated the procedure well and returned with ostomy bag and NGT in place. Patient was having pain control issues and started on MIXER HELPER and toradol. He started passing air into his ostomy pouch on 10/13 and his NG tube was discontinued. Clear liquid diet which he tolerated well. Pain was better controlled with [place] Patient seen and examined at bedside. Better today than yesterday. No nausea or vomiting. Tolerated clear liquid diet. Not having used the MIXER HELPER often. Reports that Shereen on MIXER HELPER is working much better to control his pain. No stool in the ostomy bag yet but has continued passing gas and ostomy bag Objective - Vital Signs Vital signs: Vital Signs Temp 98.7 F 10/14/19 07:10 Pulse 65 10/14/19 07:10 Resp 16 10/14/19 07:10 BP 167/90 10/14/19 07:10 Pulse Ox 95 10/14/19 07:10 Intake & Output 10/13/19 10/14/19 10/14/19 18:59 06:59 18:59 Intake Total 180 Output Total 805 6 Balance -805 -6 180 Intake: Oral 180 Output: Drainage 5 6 Abdomen 5 6 Urine 800 Other: Voiding Method Indwelling Catheter Urinal # Voids 1 2 - Exam General: non toxic, no distress, appears at stated age Derm: warm, dry Head: atraumatic, normocephalic, symmetric Eyes: EOMI, no lid lag, anicteric sclera Mouth: no lip lesion, mucus membranes moist Cardiovascular: S1S2 reg, no murmur, positive posterior tibial pulse bilateral, Lungs: Decreased breath sounds bilateral , no accessory muscle use Abdominal: soft, + tenderness to palpation throughout abdomen, no guarding, no appreciable organomegaly, hypoactive bowel sounds, DIANA drain inplace, midline dressing, and ostomy bag. Ext: no gross muscle atrophy, trace edema, no contractures Neuro: CN II-XI grossly intact, no focal neuro deficits Psych: Alert, oriented, angry - Labs CBC & Chem 7: 10/14/19 07:16 10/14/19 07:16 Labs: Abnormal Lab Results - Last 24 Hours (Table) 10/14/19 10/14/19 Range/Units 07:16 07:16 RBC 3.67 L (4.30-5.90) m/uL Hgb 12.0 L (13.0-17.5) gm/dL Hct 35.5 L (39.0-53.0) % Lymphocytes # 0.4 L (1.0-4.8) k/uL Chloride 112 H (98-107) mmol/L Calcium 7.7 L (8.4-10.2) mg/dL Total Protein 4.4 L (6.3-8.2) g/dL Albumin 2.0 L (3.5-5.0) g/dL Microbiology - Last 24 Hours (Table) 10/11/19 18:12 Anaerobic Culture - Preliminary Abdomen 10/11/19 18:12 Gram Stain - Preliminary Abdomen Wound Culture - Preliminary Gram Neg Bacilli 10/10/19 10:38 Blood Culture - Preliminary Blood No Growth after 72 hours Assessment and Plan Assessment: Diverticulitis with perforation and peritonitis s/p sigmoid resection and ostomy formation 10/11 -IV fluids, Rocephin and Flagyl -[place] and dilaudid IVP -NGT removed 10/13 -Antiemetics -Surgery recs appreciated -Outpatient colonoscopy in 6-8 weeks -CLear liquid diet Hypomagenesmia - replace and recheck in AM Tobacco abuse -Cessation -Nicotine replacement Alcohol misuse -[facility] protocol -Thiamine -Folic acid Probable multiple sclerosis -Outpatient follow-up History of thin basement membrane disease -No follow-up needed Possible nodule right base -Repeat CT 6 months Social stressor - no insurance DVT prophylaxis: SCDs Discussed with: Patient, nursing Anticipated discharge date: 2-[address]: home A total of 35 minutes was spent on the care of this complex patient more than 50% of the time was spent in counseling and care coordination.
[2019-10-14] MEDS ORDERED: HEPARIN SODIUM,PORCINE 5,000 UNIT/ML 1 ML VIAL SQ STA (10:52)
[2019-10-14] MEDS: MAGNESIUM SULFATE-D5W PMX 1 GM in DEXTROSE/WATER 1 100ML.BAG IVPB SCH ×3 (10:55→12:57)
[2019-10-14] MEDS: HYDROmorphone 0.5 MG/0.5 ML SYRINGE IVP PRN ×4 (10:59→20:40)
[2019-10-14] MEDS: SODIUM CHLORIDE 0.45% 1,000 ML IV SCH (11:02)
--- NOTE | 2019-10-14 12:35 | P.PN ---
Subjective Progress Note Date: 10/14/19 Patient doing well, no complaints. Resting in bed. Gas in bag but no stool. Tolerating clears Objective - Vital Signs Vital signs: Vital Signs Temp 98.7 F 10/14/19 07:10 Pulse 65 10/14/19 07:10 Resp 16 10/14/19 07:10 BP 167/90 10/14/19 07:10 Pulse Ox 95 10/14/19 07:10 Intake & Output 10/13/19 10/14/19 10/14/19 18:59 06:59 18:59 Intake Total 180 Output Total 805 6 Balance -805 -6 180 Intake: Oral 180 Output: Drainage 5 6 Abdomen 5 6 Urine 800 Other: Voiding Method Indwelling Catheter Urinal # Voids 1 2 - Constitutional General appearance: Present: cooperative - Respiratory Details: nonlabored - Cardiovascular Rhythm: regular - Gastrointestinal Gastrointestinal Comment(s): S/ND Expected TTP Incision CDI ostomy pink and patent. gas in bag no stool - Psychiatric Psychiatric: Present: A&O x's 3 - Labs CBC & Chem 7: 10/14/19 07:16 10/14/19 07:16 Labs: Abnormal Lab Results - Last 24 Hours (Table) 10/14/19 10/14/19 Range/Units 07:16 07:16 RBC 3.67 L (4.30-5.90) m/uL Hgb 12.0 L (13.0-17.5) gm/dL Hct 35.5 L (39.0-53.0) % Lymphocytes # 0.4 L (1.0-4.8) k/uL Chloride 112 H (98-107) mmol/L Calcium 7.7 L (8.4-10.2) mg/dL Total Protein 4.4 L (6.3-8.2) g/dL Albumin 2.0 L (3.5-5.0) g/dL Microbiology - Last 24 Hours (Table) 10/11/19 18:12 Anaerobic Culture - Preliminary Abdomen 10/11/19 18:12 Gram Stain - Preliminary Abdomen Wound Culture - Preliminary Gram Neg Bacilli 10/10/19 10:38 Blood Culture - Preliminary Blood No Growth after 72 hours Assessment and Plan Assessment: Perforated diverticulitis S/P ex lap hartmanns procedure Plan: Continue clears until further bowel function.
[2019-10-14] MEDS: HYDROcodone/APAP 7.5-325MG 1 EACH TAB PO PRN ×2 (14:04→21:43)
[2019-10-14] MEDS: POTASSIUM CHLORIDE 20 MEQ in WATER FOR INJECTION 1 100ML.BAG IVPB STA ×2 (14:06→14:47)
[2019-10-14] MEDS ORDERED: POTASSIUM CHLORIDE ER 20 MEQ TAB.ER PO SCH (15:00)
[2019-10-14 15:04] VITALS: BMI 32.1
[2019-10-15] MEDS: HYDROmorphone 0.5 MG/0.5 ML SYRINGE IVP PRN ×3 (01:32→12:34)
[2019-10-15] MEDS: SODIUM CHLORIDE 0.45% 1,000 ML IV SCH ×2 (01:35→16:55)
[2019-10-15] MEDS: MELATONIN 3 MG TABLET PO PRN (01:36)
[2019-10-15] MEDS: HYDROcodone/APAP 7.5-325MG 1 EACH TAB PO PRN ×2 (03:46→08:50)
--- NOTE | 2019-10-15 07:04 | P.PN ---
Subjective Progress Note Date: 10/15/19 Patient doing well, no complaints. Resting in bed. Gas in bag and small amount of stool. Tolerating clears Objective - Vital Signs Vital signs: Vital Signs Temp 97.9 F 10/15/19 01:47 Pulse 73 10/15/19 01:47 Resp 16 10/15/19 01:47 BP 155/85 10/15/19 01:47 Pulse Ox 98 10/15/19 01:47 Intake & Output 10/14/19 10/15/19 10/15/19 18:59 06:59 18:59 Intake Total 820 Output Total 650 Balance 820 -650 Weight 113.398 kg Intake: Oral 820 Output: Urine 650 Other: # Voids 3 - Constitutional General appearance: Present: cooperative - Respiratory Details: nonlabored - Cardiovascular Rhythm: regular - Gastrointestinal Gastrointestinal Comment(s): Dressing CDI Abdomen S/NT/ND ostomy patent with stool and gas in bag - Labs CBC & Chem 7: 10/14/19 07:16 10/14/19 07:16 Labs: Abnormal Lab Results - Last 24 Hours (Table) 10/14/19 10/14/19 Range/Units 07:16 07:16 RBC 3.67 L (4.30-5.90) m/uL Hgb 12.0 L (13.0-17.5) gm/dL Hct 35.5 L (39.0-53.0) % Lymphocytes # 0.4 L (1.0-4.8) k/uL Chloride 112 H (98-107) mmol/L Calcium 7.7 L (8.4-10.2) mg/dL Total Protein 4.4 L (6.3-8.2) g/dL Albumin 2.0 L (3.5-5.0) g/dL Microbiology - Last 24 Hours (Table) 10/11/19 18:12 Gram Stain - Final Abdomen Wound Culture - Final Escherichia coli Proteus mirabilis Klebsiella oxytoca 10/10/19 10:38 Blood Culture - Preliminary Blood No Growth after 96 hours Assessment and Plan Assessment: Perforated diverticulitis S/P ex lap hartmanns procedure Plan: Advance diet as tolerated to fulls then soft. Ambulation and IS encouraged.
[2019-10-15 07:57] LABS: HCT 38.2 % (39.0-53.0); HGB 12.9 gm/dL (13.0-17.5); MCH 32.2 pg (25.0-35.0); MCHC 33.7 g/dL (31.0-37.0); MCV 95.5 fL (80.0-100.0); Mean Platelet Volume 6.3; Platelet Count 299 k/uL (150-450); RDW 12.3 % (11.5-15.5); WBC 6.3 k/uL (3.8-10.6)
[2019-10-15 08:11] LABS: African American GFR (CKD) >90 (>60 ml/min/1.73 sqM); Anion Gap 4 mmol/L; Blood Urea Nitrogen 14 mg/dL (9-20); Calcium 8.3 mg/dL (8.4-10.2); Carbon Dioxide 28 mmol/L (22-30); Chloride 106 mmol/L (98-107); Glucose 100 mg/dL (74-99); Magnesium 1.7 mg/dL (1.6-2.3); Non-African American GFR(CKD) >90 (>60 ml/min/1.73 sqM); Phosphorus 3.9 mg/dL (2.5-4.5); Potassium 3.8 mmol/L (3.5-5.1); Sodium 138 mmol/L (137-145)
[2019-10-15] MEDS: metroNIDAZOLE-NS PMX 500 MG in SALINE 1 100ML.BAG IVPB SCH ×2 (08:49→17:12)
[2019-10-15] MEDS: FOLIC ACID 1 MG TAB PO SCH (08:50)
[2019-10-15] MEDS: PANTOPRAZOLE 40 MG TABLET PO SCH (08:50)
[2019-10-15] MEDS: NICOTINE 21MG/24HR PATCH TRANSDERM SCH (08:50)
[2019-10-15] MEDS: THIAMINE 100 MG TAB PO SCH ×2 (08:51→17:12)
[2019-10-15] MEDS: HEPARIN SODIUM,PORCINE 5,000 UNIT/ML 1 ML VIAL SQ SCH ×2 (08:51→17:12)
[2019-10-15] MEDS: MULTIVITAMINS, THERA 1 EACH TAB PO SCH (08:51)
[2019-10-15] MEDS: HYDROcodone/APAP 10-325MG 1 EACH TAB PO PRN ×2 (14:56→20:51)
--- NOTE | 2019-10-15 19:02 | P.PN ---
Subjective Progress Note Date: 10/15/19 (delayed charting seen at 10 am) Principal diagnosis: abdominal pain Patient is a 49-year-old male with a past medical history of diverticulitis, possible multiple sclerosis, and thin basement membrane disease who presented to the emergency department with complaints of lower abdominal pain. In the ER he underwent extensive evaluation. His found to be tachycardic on arrival with a pulse of 110 but his vital signs were otherwise within normal limits. Laboratory analysis showed white blood cell count of 11.4, glucose 118, calcium 10.5. He underwent a CT abdomen and pelvis which showed diverticulitis, ileus, and a nodule at the right lung base as well as hepatic steatosis. He was started on IV fluids, antiemetics, pain medications, and Zosyn in the emergency department. He also received 1 dose of IV steroids. He still did not have adequate pain control and therefore he was admitted for further management of his diverticulitis. Of note patient does have a history of a microperforation secondary to a diverticulitis in May 2019. Surgery was consulted who agreed with conservative management for his diverticulitis. He had an increase in his abdominal pain on 10/11 and right shoulder pain. CXR showed air under the diaphragm. He was take to surgery on 10/[address] Hagan he underwet sigmoid colectomy with formation of ostomy and Martin's pouch. He tolerated the procedure well and returned with ostomy bag and NGT in place. 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 He started passing air into his ostomy pouch on 10/13 and his NG tube was discontinued. Clear liquid diet which he tolerated well. Pain was better controlled with [place] and dilaudid. advance diet on 10/15 and progressing well. Patient seen and examined at bedside. No chest pain,sob, nausea. Having stool in ostomy. Tolerating diet and feeling hungry. Still feels that norco is not strung enough for pain. Has been up and walking in room a little bit. Objective - Vital Signs Vital signs: Vital Signs Temp 98.2 F 10/15/19 14:29 Pulse 68 10/15/19 14:29 Resp 18 10/15/19 14:29 BP 155/91 10/15/19 14:29 Pulse Ox 96 10/15/19 14:29 Intake & Output 10/14/19 10/15/19 10/15/19 18:59 06:59 18:59 Intake Total 820 Output Total 650 50 Balance 820 -650 -50 Weight 113.398 kg Intake: Oral 820 Output: Drainage 20 Abdomen 20 Urine 650 Stool 30 Other: # Voids 3 3 - Exam General: non toxic, no distress, appears at stated age Derm: warm, dry Head: atraumatic, normocephalic, symmetric Eyes: EOMI, no lid lag, anicteric sclera Mouth: no lip lesion, mucus membranes moist Cardiovascular: S1S2 reg, no murmur, positive posterior tibial pulse bilateral, Lungs: Decreased breath sounds bilateral , no accessory muscle use Abdominal: soft, + tenderness to palpation throughout abdomen, no guarding, no appreciable organomegaly, hypoactive bowel sounds,ostomy bag in place Ext: no gross muscle atrophy, 1+ edema, no contractures Neuro: CN II-XI grossly intact, no focal neuro deficits Psych: Alert, oriented, pleasant and jokinh, - Labs CBC & Chem 7: 10/15/19 07:31 10/15/19 07:31 Labs: Abnormal Lab Results - Last 24 Hours (Table) 10/15/19 10/15/19 Range/Units 07:31 07:31 RBC 4.00 L (4.30-5.90) m/uL Hgb 12.9 L (13.0-17.5) gm/dL Hct 38.2 L (39.0-53.0) % Glucose 100 H (74-99) mg/dL Calcium 8.3 L (8.4-10.2) mg/dL Microbiology - Last 24 Hours (Table) 10/10/19 10:38 Blood Culture - Preliminary Blood No Growth after 120 hours 10/11/19 18:12 Gram Stain - Final Abdomen Wound Culture - Final Escherichia coli Proteus mirabilis Klebsiella oxytoca Assessment and Plan Assessment: Diverticulitis with perforation and peritonitis s/p sigmoid resection and ostomy formation 10/11 -IV fluids, Rocephin and Flagyl can transition to orals on discharge. -[place] increased and dilaudid IVP -NGT removed 10/13 -Antiemetics -Surgery recs appreciated -Outpatient colonoscopy in 6-8 weeks -soft diet Hypomagenesmia, improved - recheck in AM Tobacco abuse -Cessation -Nicotine replacement Alcohol misuse -[facility] protocol -Thiamine -Folic acid Probable multiple sclerosis -Outpatient follow-up History of thin basement membrane disease -No follow-up needed Possible nodule right base -Repeat CT 6 months Social stressor - no insurance. appointment with [facility] Oct 25. DVT prophylaxis: SCDs Discussed with: Patient, nursing, Dr Rizzo Anticipated discharge date: 1-[address]: home A total of 35 minutes was spent on the care of this complex patient more than 50% of the time was spent in counseling and care coordination.
[2019-10-16] MEDS: metroNIDAZOLE-NS PMX 500 MG in SALINE 1 100ML.BAG IVPB SCH ×4 (00:46→23:23)
[2019-10-16] MEDS: HEPARIN SODIUM,PORCINE 5,000 UNIT/ML 1 ML VIAL SQ SCH ×4 (00:54→23:24)
[2019-10-16] MEDS: SODIUM CHLORIDE 0.45% 1,000 ML IV SCH ×2 (02:58→17:19)
[2019-10-16] MEDS: HYDROcodone/APAP 10-325MG 1 EACH TAB PO PRN ×4 (03:41→21:26)
[2019-10-16 07:27] LABS: African American GFR (CKD) >90 (>60 ml/min/1.73 sqM); Anion Gap 5 mmol/L; Blood Urea Nitrogen 12 mg/dL (9-20); Calcium 8.6 mg/dL (8.4-10.2); Carbon Dioxide 28 mmol/L (22-30); Chloride 105 mmol/L (98-107); Glucose 92 mg/dL (74-99); Magnesium 1.6 mg/dL (1.6-2.3); Non-African American GFR(CKD) >90 (>60 ml/min/1.73 sqM); Potassium 3.8 mmol/L (3.5-5.1); Sodium 138 mmol/L (137-145)
--- NOTE | 2019-10-16 11:04 | P.PN ---
Subjective Progress Note Date: 10/16/19 Principal diagnosis: abdominal pain Patient is a 49-year-old male with a past medical history of diverticulitis, possible multiple sclerosis, and thin basement membrane disease who presented to the emergency department with complaints of lower abdominal pain. In the ER he underwent extensive evaluation. His found to be tachycardic on arrival with a pulse of 110 but his vital signs were otherwise within normal limits. Laboratory analysis showed white blood cell count of 11.4, glucose 118, calcium 10.5. He underwent a CT abdomen and pelvis which showed diverticulitis, ileus, and a nodule at the right lung base as well as hepatic steatosis. He was started on IV fluids, antiemetics, pain medications, and Zosyn in the emergency department. He also received 1 dose of IV steroids. He still did not have adequate pain control and therefore he was admitted for further management of his diverticulitis. Of note patient does have a history of a microperforation secondary to a diverticulitis in May 2019. Surgery was consulted who agreed with conservative management for his diverticulitis. He had an increase in his abdominal pain on 10/11 and right shoulder pain. CXR showed air under the diaphragm. He was take to surgery on 10/[address] Hagan he underwet sigmoid colectomy with formation of ostomy and Martin's pouch. He tolerated the procedure well and returned with ostomy bag and NGT in place. 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 He started passing air into his ostomy pouch on 10/13 and his NG tube was discontinued. Clear liquid diet which he tolerated well. Pain was better controlled with [place] and dilaudid. Advance diet on 10/15 and progressing well, was able to tolerate some food but not all of it. Patient seen and examined at bedside. No chest pain, SOB, or nausea. Had some increased pain with solid food yesterday, was able to tolerate soup. Feeling well, wanting to go home. Objective - Vital Signs Vital signs: Vital Signs Temp 98.2 F 10/16/19 07:00 Pulse 71 10/16/19 07:00 Resp 18 10/16/19 07:00 BP 161/85 10/16/19 07:00 Pulse Ox 96 10/16/19 07:00 Intake & Output 10/15/19 10/16/19 10/16/19 18:59 06:59 18:59 Output Total 50 1450 Balance -50 -1450 Output: Drainage 20 Abdomen 20 Urine 1450 Stool 30 Other: Voiding Method Urinal # Voids 3 2 - Exam General: non toxic, no distress, appears at stated age Derm: warm, dry Head: atraumatic, normocephalic, symmetric Eyes: EOMI, no lid lag, anicteric sclera Mouth: no lip lesion, mucus membranes moist Cardiovascular: S1S2 reg, no murmur, positive posterior tibial pulse bilateral, Lungs: Decreased breath sounds bilateral , no accessory muscle use Abdominal: soft, + tenderness to palpation throughout abdomen, no guarding, no appreciable organomegaly, small amount of stool in the ostomy bag Ext: no gross muscle atrophy, 1+ edema, no contractures Neuro: CN II-XI grossly intact, no focal neuro deficits Psych: Alert, oriented, upset crying - Labs CBC & Chem 7: 10/15/19 07:31 10/16/19 06:48 Labs: Microbiology - Last 24 Hours (Table) 10/11/19 18:12 Anaerobic Culture - Final Abdomen 10/10/19 10:38 Blood Culture - Preliminary Blood No Growth after 120 hours Assessment and Plan Assessment: Diverticulitis with perforation and peritonitis s/p sigmoid resection and ostomy formation 10/11 -IV fluids, Rocephin and Flagyl can transition to orals on discharge. -[place], dilaudid -NGT removed 10/13 -Antiemetics -Surgery recs appreciated -Outpatient colonoscopy prior to reversal -soft diet Hypomagenesmia, improved - recheck in AM Tobacco abuse -Cessation -Nicotine replacement Alcohol misuse -[facility] protocol -Thiamine -Folic acid Probable multiple sclerosis -Outpatient follow-up History of thin basement membrane disease -No follow-up needed Possible nodule right base -Repeat CT 6 months Social stressor - no insurance. appointment with [facility] Oct 25. DVT prophylaxis: SCDs Discussed with: Patient, nursing, Dr Rizzo Anticipated discharge date: in AM Anticipated discharge place: home A total of 35 minutes was spent on the care of this complex patient more than 50% of the time was spent in counseling and care coordination.
[2019-10-16] MEDS: NICOTINE 21MG/24HR PATCH TRANSDERM SCH (11:32)
[2019-10-16] MEDS: THIAMINE 100 MG TAB PO SCH ×2 (11:32→18:19)
[2019-10-16] MEDS: MULTIVITAMINS, THERA 1 EACH TAB PO SCH (11:32)
[2019-10-16] MEDS: PANTOPRAZOLE 40 MG TABLET PO SCH (11:32)
[2019-10-16] MEDS: FOLIC ACID 1 MG TAB PO SCH (11:33)
--- NOTE | 2019-10-16 12:07 | P.PN ---
Subjective Progress Note Date: 10/16/19 Patient doing well, no complaints. Resting in bed. Gas in bag and small amount of stool. Tolerating soft diet Objective - Vital Signs Vital signs: Vital Signs Temp 98.2 F 10/16/19 07:00 Pulse 71 10/16/19 07:00 Resp 18 10/16/19 07:00 BP 161/85 10/16/19 07:00 Pulse Ox 96 10/16/19 07:00 Intake & Output 10/15/19 10/16/19 10/16/19 18:59 06:59 18:59 Output Total 50 1450 Balance -50 -1450 Output: Drainage 20 Abdomen 20 Urine 1450 Stool 30 Other: Voiding Method Urinal # Voids 3 2 - Constitutional General appearance: Present: cooperative - Respiratory Details: nonlabored - Cardiovascular Rhythm: regular - Gastrointestinal Gastrointestinal Comment(s): S/NT/ND incision CDI DIANA serosang Ostomy patent with stool and gas in bag - Psychiatric Psychiatric: Present: A&O x's 3 - Labs CBC & Chem 7: 10/15/19 07:31 10/16/19 06:48 Labs: Microbiology - Last 24 Hours (Table) 10/11/19 18:12 Anaerobic Culture - Final Abdomen 10/10/19 10:38 Blood Culture - Preliminary Blood No Growth after 120 hours Assessment and Plan Assessment: Perforated diverticulitis S/P ex lap hartmanns procedure Plan: Diet as tolerated, pain is improved. Ambulation and IS encouraged. Likely dc home tomorrow. DIANA can be DC prior to DC home
[2019-10-16] MEDS: MAGNESIUM SULFATE-D5W PMX 1 GM in DEXTROSE/WATER 1 100ML.BAG IVPB SCH ×4 (13:05→17:06)
[2019-10-16] MEDS: MELATONIN 3 MG TABLET PO PRN (23:15)
[2019-10-17] MEDS: HYDROcodone/APAP 10-325MG 1 EACH TAB PO PRN ×2 (04:05→09:21)
[2019-10-17] MEDS: SODIUM CHLORIDE 0.45% 1,000 ML IV SCH (05:00)
[2019-10-17 07:15] LABS: African American GFR (CKD) >90 (>60 ml/min/1.73 sqM); Anion Gap 3 mmol/L; Blood Urea Nitrogen 12 mg/dL (9-20); Calcium 8.6 mg/dL (8.4-10.2); Carbon Dioxide 31 mmol/L (22-30); Chloride 104 mmol/L (98-107); Glucose 91 mg/dL (74-99); Magnesium 1.8 mg/dL (1.6-2.3); Non-African American GFR(CKD) >90 (>60 ml/min/1.73 sqM); Phosphorus 3.8 mg/dL (2.5-4.5); Potassium 4.2 mmol/L (3.5-5.1); Sodium 138 mmol/L (137-145)
[2019-10-17 07:24] LABS: HCT 39.3 % (39.0-53.0); HGB 13.2 gm/dL (13.0-17.5); MCH 31.8 pg (25.0-35.0); MCHC 33.7 g/dL (31.0-37.0); MCV 94.4 fL (80.0-100.0); Mean Platelet Volume 6.9; Platelet Count 386 k/uL (150-450); RBC 4.17 m/uL (4.30-5.90); RDW 12.5 % (11.5-15.5)
[2019-10-17 07:33] VITALS: BP 137/76; PULSE 64; RESP 15; TEMP 98.1
[2019-10-17] MEDS: PANTOPRAZOLE 40 MG TABLET PO SCH (09:21)
[2019-10-17] MEDS: THIAMINE 100 MG TAB PO SCH (09:21)
[2019-10-17] MEDS: NICOTINE 21MG/24HR PATCH TRANSDERM SCH (09:21)
[2019-10-17] MEDS: MULTIVITAMINS, THERA 1 EACH TAB PO SCH (09:22)
[2019-10-17] MEDS: metroNIDAZOLE-NS PMX 500 MG in SALINE 1 100ML.BAG IVPB SCH (09:22)
[2019-10-17] MEDS: HEPARIN SODIUM,PORCINE 5,000 UNIT/ML 1 ML VIAL SQ SCH (09:22)
[2019-10-17] MEDS: FOLIC ACID 1 MG TAB PO SCH (09:22)
--- NOTE | 2019-10-17 10:45 | P.PN ---
Subjective Progress Note Date: 10/17/19 Patient doing well, no complaints. Resting in bed. Gas in bag and small amount of stool. Tolerating soft diet Objective - Vital Signs Vital signs: Vital Signs Temp 98.1 F 10/17/19 07:00 Pulse 64 10/17/19 07:00 Resp 15 10/17/19 07:00 BP 137/76 10/17/19 07:00 Pulse Ox 95 10/17/19 07:00 Intake & Output 10/16/19 10/17/19 10/17/19 18:59 06:59 18:59 Intake Total 610 Output Total 50 515 530 Balance -50 95 -530 Intake: Oral 610 Output: Drainage 20 15 Abdomen 20 15 Urine 500 500 Stool 30 30 Other: Voiding Method Urinal # Voids 2 1 1 - Constitutional General appearance: Present: cooperative - Respiratory Details: nonlabored - Cardiovascular Rhythm: regular - Gastrointestinal Gastrointestinal Comment(s): S/NT/ND Incision CDI DIANA serosang Ostomy [place] and patent with stool and gas in bag - Psychiatric Psychiatric: Present: A&O x's 3 - Labs CBC & Chem 7: 10/17/19 06:21 10/17/19 06:21 Labs: Abnormal Lab Results - Last 24 Hours (Table) 10/17/19 10/17/19 Range/Units 06:21 06:21 RBC 4.17 L (4.30-5.90) m/uL Carbon Dioxide 31 H (22-30) mmol/L Microbiology - Last 24 Hours (Table) 10/10/19 10:38 Blood Culture - Final Blood No Growth after 144 hours Assessment and Plan Assessment: Perforated diverticulitis S/P ex lap hartmanns procedure Plan: Diet as tolerated, pain is improved. Ambulation and IS encouraged. Surgically stable for DC, follow up with Dr. Hagan in office
--- NOTE | 2019-10-17 21:12 | P.DS ---
Providers Date of admission: 10/10/19 10:29 Expected date of discharge: 10/17/19 Attending physician: Astrid Vail DO Consults: 10/10/19 13:52 Consult Physician Routine Consulting Provider: Monae Hagan Consult Reason/Comments: diverticultis, know to you form last admission Do you want consulting provider notified?: Yes Primary care physician: Stated None Hospital Course: Discharge Diagnosis: Diverticulitis with perforation and peritonitis s/p sigmoid resection and ostomy formation 10/11 Hypomagenesmia, improved Tobacco abuse Alcohol misuse Probable multiple sclerosis History of thin basement membrane disease Possible nodule right base Hospital Course: Patient is a 49-year-old male with a past medical history of diverticulitis, possible multiple sclerosis, and thin basement membrane disease who presented to the emergency department with complaints of lower abdominal pain. In the ER he underwent extensive evaluation. His found to be tachycardic on arrival with a pulse of 110 but his vital signs were otherwise within normal limits. Laboratory analysis showed white blood cell count of 11.4, glucose 118, calcium 10.5. He underwent a CT abdomen and pelvis which showed diverticulitis, ileus, and a nodule at the right lung base as well as hepatic steatosis. He was started on IV fluids, antiemetics, pain medications, and Zosyn in the emergency department. He also received 1 dose of IV steroids. He still did not have adequate pain control and therefore he was admitted for further management of his diverticulitis. Of note patient does have a history of a microperforation secondary to a diverticulitis in May 2019. Surgery was consulted who agreed with conservative management for his diverticulitis. He had an increase in his abdominal pain on 10/11 and right shoulder pain. CXR showed air under the diaphragm. He was take to surgery on 10/[address] Hagan he underwet sigmoid colectomy with formation of ostomy and Martin's pouch. He tolerated the procedure well and returned with ostomy bag and NGT in place. 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 He started passing air into his ostomy pouch on 10/13 and his NG tube was discontinued. Clear liquid diet which he tolerated well. Pain was better controlled with [place] and dilaudid. Advance diet on 10/15 and progressing well, was able to tolerate some food but not all of it. He continued to progress well. He was determined stable for discharge on 10/17. He will complete this all 7 days of antibiotic therapy orally. He'll follow-up with Dr. Hagan in 1 week. He is hoping have a reversal of colostomy. He is also arranged to follow-up the [facility] clinic on October 25. Soft diet X 1 week. Patient seen and examined at bedside. Pain well-controlled, no nausea, no vomiting, up and ambulating, no shortness of breath, stool in ostomy pouch Vital signs reviewed and stable. General: non toxic, no distress, appears at stated age Derm: warm, dry Head: atraumatic, normocephalic, symmetric Eyes: EOMI, no lid lag, anicteric sclera Mouth: no lip lesion, mucus membranes moist Cardiovascular: S1S2 reg, no murmur, positive posterior tibial pulse bilateral, Lungs: CTA bilateral, no rhonchi, no rales , no accessory muscle use Abdominal: soft, nontender to palpation, no guarding, no appreciable organomegaly, DIANA drain in place, stool in ostomy pouch Ext: no gross muscle atrophy, 1+ edema, no contractures Neuro: CN II-XI grossly intact, no focal neuro deficits Psych: Alert, oriented, appropriate affect A total of 35 minutes of time were spent preparing this complex discharge summary . Patient Condition at Discharge: Stable Plan - Discharge Summary Discharge Rx Participant: No New Discharge Prescriptions: New metroNIDAZOLE [Flagyl] 500 mg PO TID #21 tab HYDROcodone/APAP 10-325MG [[place] 10-325] 1 each PO Q6H PRN tab PRN Reason: Pain Pantoprazole [Protonix] 40 mg PO AC-BRKFST #30 tablet. Cefpodoxime Proxetil [Vantin] 200 mg PO Q12HR #14 tab HYDROcodone/APAP 10-325MG [[place] 10-325] 1 tab PO Q6HR PRN 7 Days #28 tab PRN Reason: Pain Continue Cyanocobalamin [Vitamin B-12] 500 mcg PO DAILY Cholecalciferol [Vitamin D3 (25 Mcg = 1000 Iu)] 1,000 unit PO DAILY Discontinued Ibuprofen [Motrin Ib] 400 - 600 mg PO Q6H PRN PRN Reason: Pain Omeprazole 20 mg PO DAILY Discharge Medication List Cholecalciferol [Vitamin D3 (25 Mcg = 1000 Iu)] 1,000 unit PO DAILY 05/14/19 [History] Cyanocobalamin [Vitamin B-12] 500 mcg PO DAILY 05/14/19 [History] Cefpodoxime Proxetil [Vantin] 200 mg PO Q12HR #14 tab 10/17/19 [Rx] HYDROcodone/APAP 10-325MG [[place] 10-325] 1 each PO Q6H PRN tab 10/17/19 [Rx] HYDROcodone/APAP 10-325MG [[place] 10-325] 1 tab PO Q6HR PRN 7 Days #28 tab 10/17/19 [Rx] Pantoprazole [Protonix] 40 mg PO AC-BRKFST #30 tablet. 10/17/19 [Rx] metroNIDAZOLE [Flagyl] 500 mg PO TID #21 tab 10/17/19 [Rx] Follow up Appointment(s)/Referral(s): None,Stated [Primary Care Provider] - 1-2 days [facility] [NON-STAFF] - 10/25/19 8:30 am Monae Hagan DO [Doctor of Osteopathic Medicine] - 10/24/19 2:30 pm Patient Instructions/Handouts: Diverticulitis (GEN), Colostomy Care (GEN), Soft Diet (DC) Activity/Diet/Wound Care/Special Instructions: Activity: As tolerated, no lifting greater than 5 pounds for 2 weeks Diet: Soft diet for 2 weeks then regular diet Special Instructions: Abdominal Incision Care Last Pouching system for Colostomy Changed on: 10.15.2019 Matthew will be provided the following products for colostomy care from the hospital as follows: Jiujiuwe[employer]ang one piece cut to fit with filter #[id number] (four from [facility]) Ostomy powder (1) No Skin Prep (12) Additional colostomy product sample supplies can be obtained from [facility] at telephone #[phone] Option #3 Matthew is to change the entire pouching system every 3-5 days Matthew is to empty the pouching system when the bag is 1/2 to 1/3 full in the bathroom Discharge Disposition: HOME SELF-CARE
== END 2019-10-17 12:30 | disposition home or self-care (01) | DRG 329 ==
LOC: EC 07:47 → 4SSUR 10:29
PROVIDERS: ADMIT Internal Medicine; ATTEND Internal Medicine
PROC: 0D1M0Z4 Bypass Descending Colon to Cutaneous, Open Approach (ICD-10-PCS; 2019-10-11)
PROC: 0D9670Z Drainage of Stomach with Drainage Device, Via Natural or Artificial Opening (ICD-10-PCS; 2019-10-11)
PROC: 0DBN0ZZ Excision of Sigmoid Colon, Open Approach (ICD-10-PCS; principal; 2019-10-11 07:30)
DX: K57.20 Diverticulitis of large intestine with perforation and abscess without bleeding (principal); K65.9 Peritonitis, unspecified; N02.9 Recurrent and persistent hematuria with unspecified morphologic changes; G35 Multiple sclerosis; K76.0 Fatty (change of) liver, not elsewhere classified; I10 Essential (primary) hypertension; M77.32 Calcaneal spur, left foot; R91.1 Solitary pulmonary nodule; F17.210 Nicotine dependence, cigarettes, uncomplicated; Z71.6 Tobacco abuse counseling; Z79.899 Other long term (current) drug therapy; Z98.890 Other specified postprocedural states; Z88.1 Allergy status to other antibiotic agents; Z91.041 Radiographic dye allergy status; Z91.011 Allergy to milk products; Z84.1 Family history of disorders of kidney and ureter; Z82.69 Family history of other diseases of the musculoskeletal system and connective tissue; Z83.6 Family history of other diseases of the respiratory system
CPT/HCPCS: 36415; 71045; 74018; 74177; 76705; 80048; 80053; 81001; 82150; 82247; 83605; 83690; 83735; 84100; 84450; 84460; 85025; 85027; 85610; 87040; 87070; 87075; 87077; 87186; 87205; 88307; 93005; 96361; 96374; 96375; 99285

== ENCOUNTER → 2020-01-06 | Outpatient (CLI) | payer OTHER ==
[2020-01-06 16:13] LABS: HCT 46.5 % (39.0-53.0); HGB 15.3 gm/dL (13.0-17.5); MCH 30.5 pg (25.0-35.0); MCHC 32.9 g/dL (31.0-37.0); MCV 92.8 fL (80.0-100.0); Mean Platelet Volume 7.1; Platelet Count 264 k/uL (150-450); RBC 5.02 m/uL (4.30-5.90); RDW 12.9 % (11.5-15.5); WBC 9.6 k/uL (3.8-10.6)
[2020-01-06 16:24] LABS: Potassium 4.6 mmol/L (3.5-5.1)
== END | disposition home or self-care (01) ==
LOC: LABPAT 15:10
PROVIDERS: ATTEND Surgery
DX: Z01.818 Encounter for other preprocedural examination (principal); Z43.3 Encounter for attention to colostomy
CPT/HCPCS: 80051; 85027

== ENCOUNTER 2020-01-10 09:49 | Inpatient (IN) | payer OTHER ==
[~2020-01-10 09:49] MED LIST: DEXAMETHASONE SOD PHOSPHATE 10 MG/ML 1 ML VIAL IV ONE; HEPARIN SODIUM,PORCINE 5,000 UNIT/ML 1 ML VIAL SQ ONE; LIDOCAINE 1% (10MG/ML) FOR IV START INTRADERMA PRN; MIDAZOLAM 2 MG/2 ML VIAL IV PRN; ONDANSETRON 4 MG/2 ML VIAL IVP ONE; SCOPOLAMINE 1.5MG/72HR PATCH TRANSDERM ONE; metroNIDAZOLE-NS PMX 500 MG in SALINE 1 100ML.BAG IVPB ONE
[2020-01-10] MEDS: LACTATED RINGERS 1,000 ML IV SCH (10:07)
[2020-01-10] MEDS ORDERED: MIDAZOLAM 2 MG/2 ML VIAL IVP ONE (11:21)
[2020-01-10] MEDS ORDERED: HYDROmorphone (PF) 1 MG/ML ONE (11:32)
[2020-01-10] MEDS ORDERED: NEOSTIGMINE 1 MG/ML 10 ML VIAL ONE (11:32)
[2020-01-10] MEDS ORDERED: fentaNYL (PF) 50 MCG/ML 2 ML AMP ONE (11:32)
[2020-01-10] MEDS ORDERED: MIDAZOLAM 2 MG/2 ML VIAL ONE (11:32)
[2020-01-10] MEDS ORDERED: ROCURONIUM BROMIDE 10 MG/ML 5 ML VIAL IV ONE (11:32)
[2020-01-10] MEDS ORDERED: GLYCOPYRROLATE 0.2 MG/ML 2 ML VIAL ONE (11:32)
[2020-01-10] MEDS ORDERED: LIDOCAINE 1% INJ 10MG/ML (20 ML MDV) ONE (11:32)
[2020-01-10] MEDS ORDERED: PROPOFOL 10 MG/ML 20 ML VIAL IV ONE (11:32)
[2020-01-10] MEDS ORDERED: LACTATED RINGERS 1,000 ML IV ONE ×3 (12:45→15:18)
[2020-01-10] MEDS ORDERED: ONDANSETRON 4 MG/2 ML VIAL IVP PRN (14:48)
--- NOTE | 2020-01-10 15:02 | P.OP ---
Date of Procedure: 01/10/20 Preoperative Diagnosis: Colostomy Colostomy stenosis Postoperative Diagnosis: Colostomy Colostomy stenosis Procedure(s) Performed: Colostomy reversal with intraoperative sigmoidoscopy Anesthesia: MARI Surgeon: Monae Hagan Fish Bin Tender #1: Ryley Rizzo Estimated Blood Loss (ml): 25 Pathology: other (Ostomy and anastomosis donuts) Condition: stable Disposition: floor Indications for Procedure: This is a 49-year-old male that initially presented to the emergency department with perforated diverticulitis. He did have a Martin's procedure performed at that time. He now presents for colostomy reversal. He is a tobacco smoker and is aware of risks of procedure secondary to tobacco smoking and did not quit prior to procedure although he was instructed to. Risks, benefits and alternatives were provided to the patient. The patient did provide consent prior to attending the operating suite. Dr. Rizzo was required as an technical staff assistant for this procedure due to the complex nature of the case. Operative Findings: Extensive intra-abdominal adhesions Anastomosis with no leak after multiple leak tests Description of Procedure: The patient was taken to the operating room and placed in supine position on the operating table. Sedation was provided by anesthesia and the patient underwent endotracheal intubation. He was then placed in lithotomy position and prepped and draped in usual sterile fashion after Granados catheter was placed. The incision scar was noted an incision was made along the previous scar and dissection was carried towards the fascia. The fascia was then incised and it was immediately apparent that a significant amount of adhesions were noted between omentum and bowel to the abdominal wall. Extensive lysis of adhesions was performed and once the small bowel was completely free, it was reduced into the right upper quadrant and Bookwalter retractor was placed. The rectal stump was noted with the previous Prolene suture seen. Mild amount of small bowel was adhered to this area and was dissected free with sharp dissection. At this point, attention was turned towards the ostomy site. This was taken down with an elliptical incision with cautery and the meticulous dissection with Metzenbaum scissors and cautery down to the anterior abdominal wall. The meticulous dissection was carried to completely separate the entire ostomy from the abdominal wall. It appeared that the proximal portion of the colon would reach the rectal stump without any significant tension. The end of the colostomy was resected using a JOE 75 mm blue load stapler and both the rectal stump and the proximal colon were noted to be healthy tissue. At this point, Dr. rizzo performed with dilation of the rectum and a #29 EEA stapler was decided to be used. The anvil was inserted into the proximal portion of the anastomosis after an enterotomy was created. A 3-0 Vicryl pursestring suture was used to secure the anvil in place. The #29 EEA was introduced all the way anteriorly to the staple line and the spike from the EEA was used to perforate the rectum and the anvil was attached to the EEA. The EEA was then fired. Once it was fired and removed, appropriate donuts were noted. The pelvis was then filled with fluid and air was introduced into the anus and no bubbles or air was seen. A sigmoidoscopy was then performed and the colonoscope was introduced into the anus and the anastomosis was clearly visualized. The anastomosis appeared to be intact with no evidence of bleeding. Again, no air or bubbles was noted in the abdomen. Copious amounts of irrigation was then used within the peritoneal cavity. At this point, sponge and instrument count was performed and was noted to be correct. The ostomy site fascia was closed with interrupted 0 Vicryl suture. Packing was placed with iodoform and the skin was closed in a pursestring fashion using a 3-0 Vicryl suture around the iodoform packing. The midline incision was then closed with a loop PDS suture. Skin brandy were used. Sterile dressing was applied. The patient was awakened in the operating suite and taken to postanesthesia care unit in stable condition.
[2020-01-10] MEDS ORDERED: diphenhydrAMINE 50 MG/ML 1 ML VIAL IVP ONE (15:06)
[2020-01-10] MEDS: HYDROmorphone 0.5 MG/0.5 ML SYRINGE IVP PRN ×4 (15:06→15:25)
[2020-01-10] MEDS ORDERED: KETOROLAC 30 MG/ML 1 ML VIAL IVP ONE (15:15)
[2020-01-10] MEDS: HYDROmorphone 1 MG/ML 1 ML SYRINGE IVP PRN ×3 (16:23→22:55)
[2020-01-10] MEDS: METOCLOPRAMIDE 5 MG/ML 2 ML VIAL IVP SCH ×2 (16:28→22:55)
[2020-01-10] MEDS: HEPARIN SODIUM,PORCINE 5,000 UNIT/ML 1 ML VIAL SQ SCH ×2 (16:29→17:21)
[2020-01-10] MEDS: NICOTINE 21MG/24HR PATCH TRANSDERM SCH (17:24)
--- NOTE | 2020-01-10 18:33 | P.CONS ---
History of Present Illness - Reason for Consult Consult date: 01/10/20 (delayed charting seen at 1600) GERD tobacco abuse Requesting physician: Monae Hagan - Chief Complaint colostomy reversal - History of Present Illness Patient is a 49-year-old male past medical history of ruptured diverticulitis, GERD with Aguilar's esophagus, chronic tobacco abuse and hypertension on medications who presented for elective ostomy reversal. Patient had a history of a Martin's help procedure secondary to ruptured diverticulitis in October 2019. Patient underwent colostomy reversal and tolerated procedure well. He was noted to have extensive intra-abdominal adhesions. Patient seen and examined at bedside. He is complaining of some abdominal pain, nausea or vomiting. Is still tired. Most of the history is obtained from his and mother who are bedside. They report he has been in his usual state of health. No recent cough, cold, fever, flu, or changes in urine. He has not returned to work after his initial ostomy formation. He is going to be seeing Dr. River but has not yet seen him. Review of Systems Pertinent positives and negatives as discussed in HPI, a complete review of systems was performed and all other systems are negative. 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 colostomy 10/2019 Past Anesthesia/Blood Transfusion Reactions: Family History of Problems w/ Anesthesia Additional Past Anesthesia/Blood Transfusion Reaction / Comm: Mother's heart stopped during surgery once. Smoking Status: Current every day smoker Past Alcohol Use History: Rare Past Drug Use History: None Reported - Past Family History Mother Family Medical History: Renal Disease Additional Family Medical History / Comment(s): ESRD, lupus, scleroderma, thin b asement membrane disease. Father Family Medical History: Respiratory Disorder Additional Family Medical History / Comment(s): Father of interstitial lung disease at the age of 73 yrs. Medications and Allergies Home Medications Medication Instructions Recorded Confirmed Type Omeprazole 20 mg PO DAILY 01/10/20 01/10/20 History Allergies Allergy/AdvReac Type Severity Reaction Status Date / Time ciprofloxacin [From Cipro] Allergy Anaphylaxis Verified 01/05/20 11:58 cephalexin [From Keflex] AdvReac Nausea & Verified 01/05/20 11:58 Vomiting & Diarrhea Iodinated Contrast Media AdvReac Nausea & Verified 01/05/20 11:58 [Iodinated Contrast- Oral Vomiting and IV Dye] lactose AdvReac Nausea & Verified 01/05/20 11:58 Vomiting & Diarrhea Physical Exam Osteopathic Statement: *. No significant issues noted on an osteopathic structural exam other than those noted in the History and Physical/Consult. Vitals: Vital Signs Temp Pulse Resp BP Pulse Ox 01/10/20 17:30 97 132/82 01/10/20 17:15 74 120/71 01/10/20 17:00 69 121/76 01/10/20 16:45 72 124/74 01/10/20 16:30 69 135/81 01/10/20 16:15 71 158/97 01/10/20 16:00 97.9 F 69 159/88 97 01/10/20 15:45 91 14 158/78 92 L 01/10/20 15:30 71 14 149/77 98 01/10/20 15:15 71 14 159/88 100 01/10/20 15:00 73 16 146/72 100 01/10/20 14:52 99.4 F 84 18 184/83 95 01/10/20 11:34 70 16 97 01/10/20 10:12 97.9 F 92 16 142/90 96 Intake and Output 01/10/20 01/10/20 01/10/20 06:59 14:59 22:59 Intake Total 3150 Output Total 525 Balance 2625 Intake: IV 3150 Output: Urine 425 Estimated Blood Loss 100 Other: Weight 120.4 kg 120.4 kg General: non toxic, mild distress due to pain, appears at stated age, normal weight Derm: no unusual rashes/lesions no unusual ecchymoses, warm, dry Head: atraumatic, normocephalic, symmetric Eyes: EOMI, no lid lag, anicteric sclera, pupils equal round reactive to light ENT: Nose and ears atraumatic, no thrush, no pharyngeal erythema Neck: No thyromegaly, no cervical lymphadenopathy, trachea midline, supple Mouth: no lip lesion, mucus membranes moist Cardiovascular: S1S2 reg, no murmur, positive posterior tibial pulse bilateral, no edema, capillary refill less than 2 seconds Lungs: CTA bilateral, no rhonchi, no rales , no accessory muscle use Abdominal: soft, tender to palpation diffusely, + guarding, no appreciable organomegaly, absent bowel sounds Ext: no gross muscle atrophy, muscle strength 5 out of 5 in all 4 extremities grossly, no contractures, Neuro: CN II-XI grossly intact, light touch intact all 4 extremities, finger to nose within normal limits, Psych: Alert, oriented, appropriate affect Assessment and Plan Assessment: Patient is a 49-year-old male status post colostomy reversal Postoperative pain as anticipated outcome of his colostomy reversal -Patient has history of difficulty with pain control. He is currently receiving IV Dilaudid and IV Toradol. Will need to monitor renal function closely with history of thin basement membrane disease and receiving NSAID products -Has required LIBRARIAN HELPER in the past for adequate pain control. GERD -PPI Hypertension -No longer requiring medications -Follow blood pressures Tobacco abuse -Cessation -Nicotine replacement DVT prophylaxis: Heparin Thank you for allowing us to participate in the care of this pleasant patient. Do not hesitate to contact us with questions. Someone can be reached from the [facility] hospitalist group all hours of the day at [phone] or via perfect serve.
[2020-01-10] MEDS: KETOROLAC 30 MG/ML 1 ML VIAL IVP PRN (21:20)
[2020-01-10] MEDS: FAMOTIDINE 20 MG/2 ML VIAL IV SCH (21:20)
[2020-01-10] MEDS ORDERED: HYDROmorphone 1 MG/ML 1 ML SYRINGE IVP STA ×2 (23:01)
[2020-01-11] MEDS: HEPARIN SODIUM,PORCINE 5,000 UNIT/ML 1 ML VIAL SQ SCH ×3 (00:20→15:32)
[2020-01-11] MEDS: HYDROmorphone 1 MG/ML 1 ML SYRINGE IVP PRN ×4 (01:47→17:43)
[2020-01-11] MEDS: MELATONIN 5 MG TABLET PO PRN ×2 (01:47→19:31)
[2020-01-11] MEDS: LACTATED RINGERS 1,000 ML IV SCH (05:37)
[2020-01-11] MEDS: METOCLOPRAMIDE 5 MG/ML 2 ML VIAL IVP SCH ×3 (05:38→17:43)
[2020-01-11] MEDS: KETOROLAC 30 MG/ML 1 ML VIAL IVP PRN ×3 (05:38→19:32)
[2020-01-11] MEDS: NICOTINE 21MG/24HR PATCH TRANSDERM SCH (07:33)
[2020-01-11] MEDS: ALVIMOPAN 12 MG CAPSULE PO SCH ×2 (07:33→19:32)
[2020-01-11] MEDS: FAMOTIDINE 20 MG/2 ML VIAL IV SCH ×2 (07:34→19:32)
[2020-01-11 07:38] LABS: Basophils % (A) 0 %; Eosinophils # (A) 0.1 k/uL (0-0.7); Eosinophils % (A) 1 %; HCT 44.5 % (39.0-53.0); HGB 14.5 gm/dL (13.0-17.5); Lymphocytes # (A) 1.4 k/uL (1.0-4.8); Lymphocytes % (A) 10 %; MCH 30.2 pg (25.0-35.0); MCHC 32.6 g/dL (31.0-37.0); MCV 92.6 fL (80.0-100.0); Mean Platelet Volume 7.1; Monocytes # (A) 1.1 k/uL (0-1.0); Monocytes % (A) 8 %; Neutrophils # (A) 10.6 k/uL (1.3-7.7); Neutrophils % (A) 79 %; Platelet Count 235 k/uL (150-450); RDW 12.9 % (11.5-15.5); WBC 13.5 k/uL (3.8-10.6)
[2020-01-11 07:51] LABS: Calcium 8.8 mg/dL (8.4-10.2); Potassium 4.4 mmol/L (3.5-5.1)
[2020-01-11] MEDS: SODIUM CHLORIDE 0.9% 1,000 ML IV SCH ×2 (09:49→19:31)
--- NOTE | 2020-01-11 13:24 | P.PN ---
Subjective Progress Note Date: 01/11/20 Patient seen and examined at bedside. He was ambulating prior to my exam. Denies nausea or vomiting. Tolerating clear liquid diet. Denies flatus. Granados catheter in place. Objective - Vital Signs Vital signs: Vital Signs Temp 97.8 F 01/11/20 07:00 Pulse 62 01/11/20 08:20 Resp 19 01/11/20 08:20 BP 127/76 01/11/20 07:00 Pulse Ox 98 01/11/20 07:00 Intake & Output 01/10/20 01/11/20 01/11/20 18:59 06:59 18:59 Intake Total 3150 Output Total 525 Balance 2625 Weight 120.4 kg Intake: IV 3150 Output: Urine 425 Estimated Blood Loss 100 Other: Voiding Method Indwelling Catheter Indwelling Catheter - Constitutional General appearance: Present: cooperative, no acute distress - Respiratory Details: no difficulty with respiration - Gastrointestinal Gastrointestinal Comment(s): Soft, appropriate tenderness, nondistended, no rebound, no guarding, incision site with surgical dressing in place - Psychiatric Psychiatric: Present: A&O x's 3 - Labs CBC & Chem 7: 01/11/20 07:18 01/11/20 07:18 Labs: Abnormal Lab Results - Last 24 Hours (Table) 01/11/20 01/11/20 Range/Units 07:18 07:18 WBC 13.5 H (3.8-10.6) k/uL Neutrophils # 10.6 H (1.3-7.7) k/uL Monocytes # 1.1 H (0-1.0) k/uL Sodium 136 L (137-145) mmol/L BUN 24 H (9-20) mg/dL Glucose 103 H (74-99) mg/dL Assessment and Plan Plan: Postoperative day #1, colostomy reversal Discontinue Granados catheter Continue clear liquid diet and await bowel function Medical recommendations appreciated Continue to increase activity Pain control
[2020-01-11] MEDS ORDERED: chlorproMAZINE 25 MG TAB PO STA (14:36)
--- NOTE | 2020-01-11 15:23 | P.PN ---
Subjective Progress Note Date: 01/11/20 (delayed charting seen at 1015) Principal diagnosis: colostomy reversal Patient is a 49-year-old male past medical history of ruptured diverticulitis, GERD with Aguilar's esophagus, chronic tobacco abuse and hypertension on medications who presented for elective colostomy reversal. Patient had a history of a Martin's help procedure secondary to ruptured diverticulitis in October 2019. He does have some pain control issues after surgery. Patient seen and examined at bedside. He complains of intractable hiccups over the last 20 minutes, he did have another flareup earlier this morning. He states his pain control has been acceptable. No nausea or vomiting. No chest pain or shortness of breath. Still not taking in much orally. No flatus, no BM, + stomach gurgling. We discussed increasing his IV fluids due to poor oral intake in conjunction with the use of Toradol and his thin basement membrane disease as well as elevating creatinine. We also discussed the need to get up and out of bed today and sit in the chair. Objective - Vital Signs Vital signs: Vital Signs Temp 97.4 F L 01/11/20 14:55 Pulse 74 01/11/20 14:55 Resp 18 01/11/20 14:55 BP 128/84 01/11/20 14:55 Pulse Ox 98 01/11/20 14:55 Intake & Output 01/10/20 01/11/20 01/11/20 18:59 06:59 18:59 Intake Total 3150 Output Total 525 Balance 2625 Weight 120.4 kg Intake: IV 3150 Output: Urine 425 Estimated Blood Loss 100 Other: Voiding Method Indwelling Catheter Indwelling Catheter - Exam General: non toxic, mild distress secondary to pain, appears at stated age, intractable hiccups Derm: warm, dry Head: atraumatic, normocephalic, symmetric Eyes: EOMI, no lid lag, anicteric sclera Mouth: no lip lesion, mucus membranes moist Cardiovascular: S1S2 reg, no murmur, positive posterior tibial pulse bilateral, Lungs: Decreased breath sounds bilateral, no rhonchi, no rales , no accessory muscle use Abdominal: soft, tender to palpation diffusely, decreased bowel sounds, + guarding, no appreciable organomegaly Ext: no gross muscle atrophy, no edema, no contractures Neuro: CN II-XI grossly intact, no focal neuro deficits Psych: Alert, oriented, appropriate affect - Labs CBC & Chem 7: 01/11/20 07:18 01/11/20 07:18 Labs: Abnormal Lab Results - Last 24 Hours (Table) 01/11/20 01/11/20 Range/Units 07:18 07:18 WBC 13.5 H (3.8-10.6) k/uL Neutrophils # 10.6 H (1.3-7.7) k/uL Monocytes # 1.1 H (0-1.0) k/uL Sodium 136 L (137-145) mmol/L BUN 24 H (9-20) mg/dL Glucose 103 H (74-99) mg/dL Assessment and Plan Assessment: Patient is a 49-year-old male status post colostomy reversal Postoperative pain as anticipated outcome of his colostomy reversal -Patient has history of difficulty with pain control. He is currently receiving IV Dilaudid and IV Toradol. Will need to monitor renal function closely with history of thin basement membrane disease and receiving NSAID products. Increase IV fluids -Has required MARKETING PROGRAM COORDINATOR in the past for adequate pain control. Intractable hiccups - thorazine PO X 1. GERD -PPI Hypertension -No longer requiring medications -Follow blood pressures Tobacco abuse -Cessation -Nicotine replacement DVT prophylaxis: Heparin (patient currently refusing treatment) Thank you for allowing us to participate in the care of this pleasant patient. Do not hesitate to contact us with questions. Someone can be reached from the [facility] hospitalist group all hours of the day at [phone] or via [employer].
[2020-01-12] MEDS: HYDROmorphone 1 MG/ML 1 ML SYRINGE IVP PRN ×7 (00:55→20:41)
[2020-01-12] MEDS: HEPARIN SODIUM,PORCINE 5,000 UNIT/ML 1 ML VIAL SQ SCH ×3 (00:56→17:39)
[2020-01-12] MEDS: METOCLOPRAMIDE 5 MG/ML 2 ML VIAL IVP SCH ×4 (00:56→17:43)
[2020-01-12] MEDS: KETOROLAC 30 MG/ML 1 ML VIAL IVP PRN (03:10)
[2020-01-12] MEDS: SODIUM CHLORIDE 0.9% 1,000 ML IV SCH ×2 (04:00→17:43)
[2020-01-12] MEDS: ALVIMOPAN 12 MG CAPSULE PO SCH ×2 (07:58→20:40)
[2020-01-12] MEDS: FAMOTIDINE 20 MG/2 ML VIAL IV SCH ×2 (07:58→20:41)
[2020-01-12] MEDS: NICOTINE 21MG/24HR PATCH TRANSDERM SCH (07:58)
[2020-01-12 08:24] LABS: Basophils % (A) 0 %; Eosinophils # (A) 0.2 k/uL (0-0.7); Eosinophils % (A) 3 %; HGB 12.7 gm/dL (13.0-17.5); Lymphocytes # (A) 1.5 k/uL (1.0-4.8); Lymphocytes % (A) 19 %; MCH 31.3 pg (25.0-35.0); MCHC 33.5 g/dL (31.0-37.0); MCV 93.2 fL (80.0-100.0); Mean Platelet Volume 7.4; Monocytes # (A) 0.8 k/uL (0-1.0); Monocytes % (A) 9 %; Neutrophils # (A) 5.4 k/uL (1.3-7.7); Neutrophils % (A) 67 %; Platelet Count 200 k/uL (150-450); RBC 4.07 m/uL (4.30-5.90); RDW 12.8 % (11.5-15.5); WBC 8.1 k/uL (3.8-10.6)
[2020-01-12 08:29] LABS: Calcium 8.6 mg/dL (8.4-10.2); Potassium 4.4 mmol/L (3.5-5.1)
--- NOTE | 2020-01-12 13:22 | P.PN ---
Subjective Progress Note Date: 01/12/20 Patient seen and examined at bedside. He has ambulated in the hallway. Urinating since Granados catheter removal. He did state that he passed some small clots, however overall his urine is normal colored. States he is having flatus. Denies nausea or vomiting. Tolerating clear liquids. Objective - Vital Signs Vital signs: Vital Signs Temp 97.7 F 01/12/20 07:00 Pulse 65 01/12/20 07:27 Resp 18 01/12/20 07:27 BP 136/78 01/12/20 07:00 Pulse Ox 98 01/12/20 07:00 Intake & Output 01/11/20 01/12/20 01/12/20 18:59 06:59 18:59 Intake Total 1280 480 Output Total 1050 400 400 Balance 230 -400 80 Intake: Intake, IV Titration 800 Amount Sodium Chloride 0.9% 1, 800 000 ml @ 100 mls/hr IV . Q10H [facility] Rx#:[id number] Oral 480 480 Output: Urine 1050 400 400 Other: Voiding Method Urinal Urinal # Voids 1 1 - Constitutional General appearance: Present: cooperative, no acute distress - Gastrointestinal Gastrointestinal Comment(s): Soft, appropriate tenderness, nondistended, no rebound, no guarding, midline incision site clean, dry and intact, previous ostomy site with packing in place and mild serous drainage - Musculoskeletal Musculoskeletal: Present: generalized weakness - Psychiatric Psychiatric: Present: A&O x's 3 - Labs CBC & Chem 7: 01/12/20 07:50 01/12/20 07:50 Labs: Abnormal Lab Results - Last 24 Hours (Table) 01/12/20 01/12/20 Range/Units 07:50 07:50 RBC 4.07 L (4.30-5.90) m/uL Hgb 12.7 L (13.0-17.5) gm/dL Hct 38.0 L (39.0-53.0) % Sodium 134 L (137-145) mmol/L BUN 22 H (9-20) mg/dL Assessment and Plan Plan: Postoperative day #2, colostomy reversal Advanced to full liquid diet Continue to await additional bowel function Partial packing was removed from ostomy site, sterile dressing applied Medical recommendations appreciated Continue to increase activity Pain control
[2020-01-12] MEDS: HYDROcodone/APAP 10-325MG 1 EACH TAB PO PRN ×2 (15:25→21:44)
--- NOTE | 2020-01-12 17:46 | P.PN ---
Subjective Progress Note Date: 01/12/20 (delayed charting seen at 1030) Principal diagnosis: colostomy reversal Patient is a 49-year-old male past medical history of ruptured diverticulitis, GERD with Aguilar's esophagus, chronic tobacco abuse and hypertension on medications who presented for elective colostomy reversal. Patient had a history of a Martin's help procedure secondary to ruptured diverticulitis in October 2019. increased hematuria on 01/12/20. Patient seen and examined at bedside. He reports that he had increasing hematuria today including passing large clots after Granados was discontinued. He does as part some pain with urination that is in his low pelvis. He denies any fevers. No nausea or vomiting. Still abdominal pain with deep cough. Pain is controlled at this point in time. We discussed coming off the Sporanox consider changing to oral Reinholds. He is in agreement. He also reports that he is passing lots of flatus but has not yet had a bowel movement. Tolerating his diet. Objective - Vital Signs Vital signs: Vital Signs Temp 98.1 F 01/12/20 15:00 Pulse 64 01/12/20 16:00 Resp 17 01/12/20 16:00 BP 129/77 01/12/20 15:00 Pulse Ox 96 01/12/20 15:00 Intake & Output 01/11/20 01/12/20 01/12/20 18:59 06:59 18:59 Intake Total 1280 2130 Output Total 1050 400 400 Balance 230 -400 1730 Intake: Intake, IV Titration 800 800 Amount Sodium Chloride 0.9% 1, 800 800 000 ml @ 100 mls/hr IV . Q10H [facility] Rx#:[id number] Oral 480 1330 Output: Urine 1050 400 400 Other: Voiding Method Urinal Urinal # Voids 1 3 - Exam General: non toxic, no distress, appears at stated age, intractable hiccups Derm: warm, dry Head: atraumatic, normocephalic, symmetric Eyes: EOMI, no lid lag, anicteric sclera Mouth: no lip lesion, mucus membranes moist Cardiovascular: S1S2 reg, no murmur, positive posterior tibial pulse bilateral, Lungs: Clear to auscultation bilateral, no rhonchi, no rales , no accessory muscle use Abdominal: soft, tender to palpation diffusely, decreased bowel sounds, no guarding, no appreciable organomegaly Ext: no gross muscle atrophy, no edema, no contractures Neuro: CN II-XI grossly intact, no focal neuro deficits Psych: Alert, oriented, appropriate affect - Labs CBC & Chem 7: 01/12/20 07:50 01/12/20 07:50 Labs: Abnormal Lab Results - Last 24 Hours (Table) 01/12/20 01/12/20 Range/Units 07:50 07:50 RBC 4.07 L (4.30-5.90) m/uL Hgb 12.7 L (13.0-17.5) gm/dL Hct 38.0 L (39.0-53.0) % Sodium 134 L (137-145) mmol/L BUN 22 H (9-20) mg/dL Assessment and Plan Assessment: Patient is a 49-year-old male status post colostomy reversal Postoperative pain as anticipated outcome of his colostomy reversal - Factorial secondary to hematuria and he had Reinholds in addition to his oral Dilaudid. Acute blood loss anemia, anticipated outcome of surgery, mild -Follow CBC -No additional intervention. 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 Hyponatremia secondary to decreased solute intake -Continue with IV fluids -Repeat basic metabolic profile in a.m. GERD -PPI Hypertension -No longer requiring medications -Follow blood pressures Tobacco abuse -Cessation -Nicotine replacement Intractable hiccups, resolved DVT prophylaxis: Heparin (patient currently refusing treatment) Thank you for allowing us to participate in the care of this pleasant patient. Do not hesitate to contact us with questions. Someone can be reached from the [facility] hospitalist group all hours of the day at [phone] or via perfect serve.
[2020-01-13] MEDS: HEPARIN SODIUM,PORCINE 5,000 UNIT/ML 1 ML VIAL SQ SCH ×3 (00:01→17:31)
[2020-01-13] MEDS: METOCLOPRAMIDE 5 MG/ML 2 ML VIAL IVP SCH ×4 (00:01→17:32)
[2020-01-13] MEDS: HYDROmorphone 1 MG/ML 1 ML SYRINGE IVP PRN ×3 (00:01→08:09)
[2020-01-13] MEDS: SODIUM CHLORIDE 0.9% 1,000 ML IV SCH ×2 (01:21→12:39)
[2020-01-13] MEDS: HYDROcodone/APAP 10-325MG 1 EACH TAB PO PRN ×4 (02:57→22:53)
[2020-01-13] MEDS: NICOTINE 21MG/24HR PATCH TRANSDERM SCH (04:45)
[2020-01-13] MEDS: FAMOTIDINE 20 MG/2 ML VIAL IV SCH (08:08)
[2020-01-13] MEDS: ALVIMOPAN 12 MG CAPSULE PO SCH ×2 (08:09→20:35)
[2020-01-13 08:10] LABS: Basophils % (A) 0 %; Eosinophils # (A) 0.3 k/uL (0-0.7); Eosinophils % (A) 5 %; HCT 39.3 % (39.0-53.0); HGB 12.6 gm/dL (13.0-17.5); Lymphocytes # (A) 1.3 k/uL (1.0-4.8); Lymphocytes % (A) 20 %; MCV 93.7 fL (80.0-100.0); Mean Platelet Volume 7.4; Monocytes # (A) 0.6 k/uL (0-1.0); Monocytes % (A) 9 %; Neutrophils # (A) 4.2 k/uL (1.3-7.7); Neutrophils % (A) 63 %; Platelet Count 205 k/uL (150-450); RBC 4.19 m/uL (4.30-5.90); RDW 12.7 % (11.5-15.5); WBC 6.6 k/uL (3.8-10.6)
[2020-01-13 08:21] LABS: African American GFR (CKD) >90 (>60 ml/min/1.73 sqM); Anion Gap 4 mmol/L; Blood Urea Nitrogen 13 mg/dL (9-20); Calcium 8.9 mg/dL (8.4-10.2); Carbon Dioxide 29 mmol/L (22-30); Chloride 103 mmol/L (98-107); Glucose 102 mg/dL (74-99); Non-African American GFR(CKD) 84 (>60 ml/min/1.73 sqM); Sodium 136 mmol/L (137-145)
[2020-01-13] MEDS ORDERED: KETOROLAC 30 MG/ML 1 ML VIAL IVP ONE (12:00)
--- NOTE | 2020-01-13 14:10 | P.PN ---
Subjective Progress Note Date: 01/13/20 Patient seen and examined at bedside. Family is present. He states he is feeling better than yesterday. Continues to have flatus. No bowel movement. Denies nausea or vomiting. Objective - Vital Signs Vital signs: Vital Signs Temp 97.8 F 01/13/20 07:47 Pulse 57 L 01/13/20 07:47 Resp 16 01/13/20 08:00 BP 131/85 01/13/20 07:47 Pulse Ox 97 01/13/20 07:47 Intake & Output 01/12/20 01/13/20 01/13/20 18:59 06:59 18:59 Intake Total 2130 300 360 Output Total 400 Balance 1730 300 360 Intake: Intake, IV Titration 800 Amount Sodium Chloride 0.9% 1, 800 000 ml @ 100 mls/hr IV . Q10H [facility] Rx#:[id number] Oral 1330 300 360 Output: Urine 400 Other: Voiding Method Urinal Toilet Urinal # Voids 3 1 - Constitutional General appearance: Present: cooperative, no acute distress - Gastrointestinal Gastrointestinal Comment(s): Soft, appropriate tenderness, nondistended, no rebound, no guarding, incision site clean, dry and intact, previous ostomy site with packing in place and no evidence of infectious process - Psychiatric Psychiatric: Present: A&O x's 3 - Labs CBC & Chem 7: 01/13/20 07:40 01/13/20 07:40 Labs: Abnormal Lab Results - Last 24 Hours (Table) 01/13/20 01/13/20 Range/Units 07:40 07:40 RBC 4.19 L (4.30-5.90) m/uL Hgb 12.6 L (13.0-17.5) gm/dL Sodium 136 L (137-145) mmol/L Glucose 102 H (74-99) mg/dL Assessment and Plan Plan: Postoperative day #3, colostomy reversal Advanced to Soft diet Continue to await additional bowel function Partial packing was removed from ostomy site, sterile dressing applied Okay to shower Appears that blood in urine has resolved Medical recommendations appreciated Continue to increase activity Pain control
--- NOTE | 2020-01-13 15:58 | P.PN ---
Subjective Progress Note Date: 01/13/20 (delayed charting patient seen at 1030) Principal diagnosis: colostomy reversal Patient is a 49-year-old male past medical history of ruptured diverticulitis, GERD with Aguilar's esophagus, chronic tobacco abuse and hypertension on medications who presented for elective colostomy reversal. Patient had a history of a Martin's help procedure secondary to ruptured dive rticulitis in October 2019. increased hematuria on 01/12/20 which improved by 01/13/20 Patient seen and examined at bedside. Still with low appetite. Pain is getting slowly better. No nausea or vomiting. Still having some cramping. No other complaints currently. No BM, + Flatus Objective - Vital Signs Vital signs: Vital Signs Temp 97.8 F 01/13/20 07:47 Pulse 57 L 01/13/20 07:47 Resp 16 01/13/20 08:00 BP 131/85 01/13/20 07:47 Pulse Ox 97 01/13/20 07:47 Intake & Output 01/12/20 01/13/20 01/13/20 18:59 06:59 18:59 Intake Total 2130 300 360 Output Total 400 Balance 1730 300 360 Intake: Intake, IV Titration 800 Amount Sodium Chloride 0.9% 1, 800 000 ml @ 50 mls/hr IV . Q20H [facility] Rx#:[id number] Oral 1330 300 360 Output: Urine 400 Other: Voiding Method Urinal Toilet Urinal # Voids 3 1 1 - Exam General: non toxic, no distress, appears at stated age Derm: warm, dry Head: atraumatic, normocephalic, symmetric Eyes: EOMI, no lid lag, anicteric sclera Mouth: no lip lesion, mucus membranes moist Cardiovascular: S1S2 reg, no murmur, positive posterior tibial pulse bilateral, Lungs: Clear to auscultation bilateral, no rhonchi, no rales , no accessory muscle use Abdominal: soft, tender to palpation diffusely, + bowel sounds, no guarding, no appreciable organomegaly Ext: no gross muscle atrophy, no edema, no contractures Neuro: CN II-XI grossly intact, no focal neuro deficits Psych: Alert, oriented, appropriate affect - Labs CBC & Chem 7: 01/13/20 07:40 01/13/20 07:40 Labs: Abnormal Lab Results - Last 24 Hours (Table) 01/13/20 01/13/20 Range/Units 07:40 07:40 RBC 4.19 L (4.30-5.90) m/uL Hgb 12.6 L (13.0-17.5) gm/dL Sodium 136 L (137-145) mmol/L Glucose 102 H (74-99) mg/dL Assessment and Plan Assessment: Patient is a 49-year-old male status post colostomy reversal Postoperative pain as anticipated outcome of his colostomy reversal - Tordal discontinued secondary to hematuria this is now resolved, can used t oradol sparingly - [place] in addition to his IV Dilaudid. Acute blood loss anemia, anticipated outcome of surgery, mild -Follow CBC -No additional intervention. 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 GERD -PPI Hypertension -No longer requiring medications -Follow blood pressures Tobacco abuse -Cessation -Nicotine replacement Intractable hiccups, resolved DVT prophylaxis: Heparin Thank you for allowing us to participate in the care of this pleasant patient. Do not hesitate to contact us with questions. Someone can be reached from the [facility] hospitalist group all hours of the day at [phone] or via perfect serve.
[2020-01-13 17:16] VITALS: BMI 34.0
[2020-01-13] MEDS: FAMOTIDINE 20 MG TAB PO SCH (20:35)
[2020-01-13] MEDS: HYDROmorphone 0.5 MG/0.5 ML SYRINGE IVP PRN ×2 (20:38→23:57)
[2020-01-14] MEDS: MELATONIN 5 MG TABLET PO PRN ×2 (00:03→22:57)
[2020-01-14] MEDS: METOCLOPRAMIDE 5 MG/ML 2 ML VIAL IVP SCH ×5 (05:44→23:24)
[2020-01-14] MEDS: HYDROcodone/APAP 10-325MG 1 EACH TAB PO PRN ×3 (05:44→22:13)
--- NOTE | 2020-01-14 08:41 | P.PN ---
Subjective Progress Note Date: 01/14/20 Patient seen and examined at bedside. States he did have a bowel movement and has had some abdominal cramping. Denies nausea or vomiting. Tolerating soft diet. Objective - Vital Signs Vital signs: Vital Signs Temp 97.9 F 01/14/20 07:00 Pulse 65 01/14/20 07:00 Resp 16 01/14/20 07:00 BP 122/85 01/14/20 07:00 Pulse Ox 96 01/14/20 07:00 Intake & Output 01/13/20 01/14/20 01/14/20 18:59 06:59 18:59 Intake Total 540 20 Output Total 175 Balance 540 -155 Weight 120.4 kg Intake: Oral 540 20 Output: Urine 175 Other: Voiding Method Toilet Toilet Urinal Urinal # Voids 1 1 - Constitutional General appearance: Present: cooperative, no acute distress - Gastrointestinal Gastrointestinal Comment(s): Soft, appropriate tenderness, nondistended, no rebound, no guarding, incision site clean, dry and intact, previous ostomy site with packing in place and no evidence of infection - Psychiatric Psychiatric: Present: A&O x's 3 - Labs CBC & Chem 7: 01/13/20 07:40 01/13/20 07:40 Assessment and Plan Plan: Postoperative day #4, colostomy reversal Continue Soft diet Patient did have a bowel movement Partial packing was removed from ostomy site, sterile dressing applied Okay to shower Appears that blood in urine has resolved Likely discharge in 24 hours, continue pain control Medical recommendations appreciated Continue to increase activity
[2020-01-14] MEDS: HEPARIN SODIUM,PORCINE 5,000 UNIT/ML 1 ML VIAL SQ SCH ×4 (09:11→23:21)
[2020-01-14] MEDS: NICOTINE 21MG/24HR PATCH TRANSDERM SCH (09:11)
[2020-01-14] MEDS: HYDROmorphone 0.5 MG/0.5 ML SYRINGE IVP PRN (09:11)
[2020-01-14] MEDS: FAMOTIDINE 20 MG TAB PO SCH ×2 (09:11→21:20)
[2020-01-14] MEDS: KETOROLAC 30 MG/ML 1 ML VIAL IVP PRN (12:17)
[2020-01-14] MEDS: CYCLOBENZAPRINE 5 MG TAB PO PRN ×2 (13:39→21:20)
--- NOTE | 2020-01-14 15:44 | P.PN ---
Subjective Progress Note Date: 01/14/20 (irasema charting seen at 1045) Principal diagnosis: colostomy reversal Patient is a 49-year-old male past medical history of ruptured diverticulitis, GERD with Aguilar's esophagus, chronic tobacco abuse and hypertension on medications who presented for elective colostomy reversal. Patient had a history of a Martin's help procedure secondary to ruptured diverticulitis in October 2019. increased hematuria on 01/12/20 which improved by 01/13/20. Patient seen and examined at bedside.really well. Has been up and walking the hallways. Feels as though his back and side muscles are getting sore. He reports he had a bowel movement yesterday that was quite painful. Denies any nausea or vomiting. Still not much oral intake food santamaria but has been consuming fluids well Objective - Vital Signs Vital signs: Vital Signs Temp 97.6 F 01/14/20 15:00 Pulse 70 01/14/20 15:00 Resp 18 01/14/20 15:00 BP 132/80 01/14/20 15:00 Pulse Ox 96 01/14/20 15:00 Intake & Output 01/13/20 01/14/20 01/14/20 18:59 06:59 18:59 Intake Total 540 20 650 Output Total 175 Balance 540 -155 650 Weight 120.4 kg Intake: Intake, IV Titration 100 Amount Sodium Chloride 0.9% 1, 100 000 ml @ 50 mls/hr IV . Q20H [facility] Rx#:[id number] Oral 540 20 550 Output: Urine 175 Other: Voiding Method Toilet Toilet Toilet Urinal Urinal Urinal # Voids 1 1 3 # Bowel Movements 1 - Exam General: non toxic, no distress, appears at stated age Head: atraumatic, normocephalic, symmetric Eyes: EOMI, no lid lag, anicteric sclera Mouth: no lip lesion, mucus membranes moist Cardiovascular: S1S2 reg, no murmur, positive posterior tibial pulse bilateral, Lungs: Clear to auscultation bilateral, no rhonchi, no rales , no accessory muscle use Abdominal: soft, + tender to palpation diffusely, + bowel sounds, no guarding, no appreciable organomegaly Ext: no gross muscle atrophy, no edema, no contractures Psych: Alert, oriented, appropriate affect - Labs CBC & Chem 7: 01/13/20 07:40 01/13/20 07:40 Assessment and Plan Assessment: Patient is a 49-year-old male status post colostomy reversal Postoperative pain as anticipated outcome of his colostomy reversal - Tordal discontinued secondary to hematuria this is now resolved, can use toradol sparingly - [place] in addition to his IV Dilaudid. - add flexaril for muscle cramps, as trying to transition off IV dilaudid. Acute blood loss anemia, anticipated outcome of surgery, mild -Follow CBC -No additional intervention. GERD -PPI Hypertension -No longer requiring medications -Follow blood pressures Tobacco abuse -Cessation -Nicotine replacement Thin basement membrane disease Hematuria, at baseline Hyponatremia, improved Intractable hiccups, resolved DVT prophylaxis: Heparin Thank you for allowing us to participate in the care of this pleasant patient. Do not hesitate to contact us with questions. Someone can be reached from the [facility] hospitalist group all hours of the day at [phone] or via perfect serve.
[2020-01-14] MEDS: SODIUM CHLORIDE 0.9% 1,000 ML IV SCH (19:10)
[2020-01-15] MEDS: HYDROcodone/APAP 10-325MG 1 EACH TAB PO PRN ×2 (05:42→11:50)
[2020-01-15] MEDS: METOCLOPRAMIDE 5 MG/ML 2 ML VIAL IVP SCH (05:43)
[2020-01-15 08:39] VITALS: BP 125/72; PULSE 71; RESP 16; TEMP 97.7
[2020-01-15] MEDS: KETOROLAC 30 MG/ML 1 ML VIAL IVP PRN (09:30)
[2020-01-15] MEDS: FAMOTIDINE 20 MG TAB PO SCH (09:31)
[2020-01-15] MEDS: NICOTINE 21MG/24HR PATCH TRANSDERM SCH (09:31)
[2020-01-15] MEDS: HEPARIN SODIUM,PORCINE 5,000 UNIT/ML 1 ML VIAL SQ SCH (09:31)
--- NOTE | 2020-01-15 10:10 | P.DS ---
Providers Date of admission: 01/10/20 09:49 Attending physician: Monae Hagan DO Consults: 01/10/20 14:51 Consult Physician Routine Consulting Provider: Astrid Vail Consult Reason/Comments: Med Mgmt Do you want consulting provider notified?: Yes Primary care physician: [facility] Hospital Course: 49-year-old male presented for an elective colostomy reversal. Colostomy was placed over 2 months ago secondary to perforated diverticulitis. Patient underwent colostomy reversal and was admitted to the medical surgical floor. During his admission, his pain improved and his activity slowly returned to regular activity. He began having bowel function and his diet was advanced. He is surgically stable for discharge. Assessment: Abdomen: Soft, appropriate tenderness, nondistended, no rebound, no guarding, midline incision clean, dry and intact, previous ostomy site with serosanguineous drainage Procedures: Ostomy reversal Patient Condition at Discharge: Fair Plan - Discharge Summary Discharge Rx Participant: Yes New Discharge Prescriptions: New HYDROcodone/APAP 10-325MG [Mobile 10-325] 1 each PO Q6H PRN #15 tab PRN Reason: Pain Continue Omeprazole 20 mg PO DAILY Discharge Medication List Omeprazole 20 mg PO DAILY 01/10/20 [History] HYDROcodone/APAP 10-325MG [Mobile 10-325] 1 each PO Q6H PRN #15 tab 01/15/20 [Rx] Follow up Appointment(s)/Referral(s): Monae Hagan DO [Doctor of Osteopathic Medicine] - 2 Weeks Activity/Diet/Wound Care/Special Instructions: Take daily shower No lifting greater than 5 pounds Alternate between Motrin and narcotic pain medication Apply dressing as necessary to wound Ambulate daily Discharge Disposition: HOME SELF-CARE
--- NOTE | 2020-01-15 11:27 | P.PN ---
Subjective Progress Note Date: 01/15/20 (delayed charting see at 0930) Principal diagnosis: colostomy reversal Patient is a 49-year-old male past medical history of ruptured diverticulitis, GERD with Aguilar's esophagus, chronic tobacco abuse and hypertension on medications who presented for elective colostomy reversal. Patient had a history of a Martin's help procedure secondary to ruptured diverticulitis in October 2019. increased hematuria on 01/12/20 which improved by 01/13/20. Patient seen and examined at bedside. Flexeril has been helping his abdominal pain, no chest pain, no shortness of breath, pain better controlled, still passing gas no BM today, no n/v eating small amounts. Objective - Vital Signs Vital signs: Vital Signs Temp 97.7 F 01/15/20 07:00 Pulse 71 01/15/20 08:00 Resp 16 01/15/20 08:00 BP 125/72 01/15/20 07:00 Pulse Ox 97 01/15/20 07:00 Intake & Output 01/14/20 01/15/20 01/15/20 17:59 06:59 18:59 Intake Total Output Total 175 Balance -175 Intake: Intake, IV Titration Amount Sodium Chloride 0.9% 1, 000 ml @ 50 mls/hr IV . Q20H [facility] Rx#:[id number] Oral Output: Urine 175 Other: Voiding Method Toilet Urinal # Voids 3 # Bowel Movements 1 - Exam General: non toxic, no distress, appears at stated age Head: atraumatic, normocephalic, symmetric Cardiovascular: S1S2 reg, no murmur, positive posterior tibial pulse bilateral, Lungs: Clear to auscultation bilateral, no rhonchi, no rales , no accessory muscle use Abdominal: soft, + tender to palpation diffusely, + bowel sounds, no guarding, no appreciable organomegaly Ext: no gross muscle atrophy, no edema, no contractures Psych: Alert, oriented, appropriate affect - Labs CBC & Chem 7: 01/13/20 07:40 01/13/20 07:40 Assessment and Plan Assessment: Patient is a 49-year-old male status post colostomy reversal Postoperative pain as anticipated outcome of his colostomy reversal - d/w surgery home on norco and flexeril - patient can use tylenol and small amounts of mortin over the counter Acute blood loss anemia, anticipated outcome of surgery, mild -Follow CBC -No additional intervention. GERD -PPI Hypertension -No longer requiring medications -Follow blood pressures Tobacco abuse -Cessation -Nicotine replacement Thin basement membrane disease Hematuria, at baseline Hyponatremia, improved Intractable hiccups, resolved DVT prophylaxis: Heparin Medically optimized for discharge, D/W Dr. Hagan
== END 2020-01-15 12:25 | disposition home or self-care (01) | DRG 330 ==
LOC: 2ORMAIN 09:49 → 4SSUR 15:04
PROVIDERS: ADMIT Surgery; ATTEND Surgery
PROC: 0DJD8ZZ Inspection of Lower Intestinal Tract, Via Natural or Artificial Opening Endoscopic (ICD-10-PCS; principal; 2020-01-10 11:30)
PROC: 0DBN0ZZ Excision of Sigmoid Colon, Open Approach (ICD-10-PCS; principal; 2020-01-10 11:30)
PROC: 0DN80ZZ Release Small Intestine, Open Approach (ICD-10-PCS; principal; 2020-01-10 11:30)
PROC: 0DNU0ZZ Release Omentum, Open Approach (ICD-10-PCS; principal; 2020-01-10 11:30)
DX: K94.03 Colostomy malfunction (principal); D62 Acute posthemorrhagic anemia; E87.1 Hypo-osmolality and hyponatremia; F17.200 Nicotine dependence, unspecified, uncomplicated; I10 Essential (primary) hypertension; K21.9 Gastro-esophageal reflux disease without esophagitis; K22.70 Barrett's esophagus without dysplasia; R06.6 Hiccough; R31.9 Hematuria, unspecified; K66.0 Peritoneal adhesions (postprocedural) (postinfection); Z98.890 Other specified postprocedural states; Z84.1 Family history of disorders of kidney and ureter; Z83.6 Family history of other diseases of the respiratory system; Z83.2 Family history of diseases of the blood and blood-forming organs and certain disorders involving the immune mechanism; Z88.1 Allergy status to other antibiotic agents; Z91.041 Radiographic dye allergy status; Z91.011 Allergy to milk products
CPT/HCPCS: 80048; 85025; 86850; 86900; 86901; 88304; 88307

== ENCOUNTER 2020-01-16 07:58 | Emergency (ER) | payer OTHER ==
[2020-01-16 08:05] VITALS: RESP 16
--- NOTE | 2020-01-16 08:42 | ED ---
General Adult HPI - General Chief complaint: Abdominal Pain Stated complaint: abd pain Source: patient, RN notes reviewed, old records reviewed Mode of arrival: ambulatory Limitations: no limitations - History of Present Illness Initial comments: This is a 49-year-old male who presents to the emergency department complaining of abdominal pain and urinating stool. Patient states he had a reversal of a colostomy about 6 days ago and he went home from the hospital yesterday. P atient got up this morning had have a bowel movement started to have a bowel movement which was diarrhea and then he started urinating stool. Patient states he is quite a bit of lower abdominal pain as well as some rectal pain. Patient denies any fever chills. Patient denies any chest pain or difficulty breathing. - Related Data Home Medications Medication Instructions Recorded Confirmed Omeprazole 20 mg PO DAILY 01/10/20 01/17/20 HYDROcodone/APAP 10-325MG [Felicity 1 tab PO Q6H PRN 01/16/20 01/17/20 10-325] Ibuprofen [Motrin Ib] 400 mg PO Q6H PRN 01/17/20 01/17/20 Sulfamethox-Tmp 800-160Mg [Bactrim 1 tab PO Q12HR 01/17/20 01/17/20 DS 800-160 mg] Previous Rx's Medication Instructions Recorded Cyclobenzaprine [Flexeril] 5 mg PO TID PRN #20 tab 01/15/20 Allergies Allergy/AdvReac Type Severity Reaction Status Date / Time ciprofloxacin [From Cipro] Allergy Anaphylaxis Verified 01/17/20 10:41 cephalexin [From Keflex] AdvReac Nausea & Verified 01/17/20 10:41 Vomiting & Diarrhea Iodinated Contrast Media AdvReac Nausea & Verified 01/17/20 10:41 [Iodinated Contrast- Oral Vomiting and IV Dye] Review of Systems ROS Statement: Those systems with pertinent positive or pertinent negative responses have been documented in the HPI. ROS Other: All systems not noted in ROS Statement are negative. 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 colostomy 10/2019 Past Anesthesia/Blood Transfusion Reactions: Family History of Problems w/ Anesthesia Additional Past Anesthesia/Blood Transfusion Reaction / Comment(s): Mother's heart stopped during surgery once. Past Psychological History: No Psychological Hx Reported Smoking Status: Current every day smoker Past Alcohol Use History: Rare Past Drug Use History: None Reported - Past Family History Mother Family Medical History: Renal Disease Additional Family Medical History / Comment(s): ESRD, lupus, scleroderma, thin basement membrane disease. Father Family Medical History: Respiratory Disorder Additional Family Medical History / Comment(s): Father of interstitial lung disease at the age of 73 yrs. General Exam - General Exam Comments Initial Comments: GENERAL: Patient is well-developed and well-nourished. Patient is nontoxic and well- hydrated and is in moderate distress. ENT: Neck is soft and supple. No significant lymphadenopathy is noted. Oropharynx is clear. Moist mucous membranes. Neck has full range of motion without eliciting any pain. EYES: The sclera were anicteric and conjunctiva were pink and moist. Extraocular movements were intact and pupils were equal round and reactive to light. Eyelids were unremarkable. PULMONARY: Unlabored respirations. Good breath sounds bilaterally. No audible rales rhonchi or wheezing was noted. CARDIOVASCULAR: There is a regular rate and rhythm without any murmurs gallops or rubs. ABDOMEN: Patient has a large bandage covering up his abdominal wound and patient is quite tender around the bandaging on top of the bandages well. SKIN: Skin is clear with no lesions or rashes and otherwise unremarkable. NEUROLOGIC: Patient is alert and oriented x3. Cranial nerves II through XII are grossly intact. Motor and sensory are also intact. Normal speech, volume and content. Symmetrical smile. MUSCULOSKELETAL: Normal extremities with adequate strength and full range of motion. LYMPHATICS: No significant lymphadenopathy is noted PSYCHIATRIC: Normal psychiatric evaluation. Limitations: no limitations Course Vital Signs 01/16/20 01/16/20 01/16/20 08:00 11:08 12:56 Temperature 98.2 F 98 F 98.5 F Pulse Rate 87 58 L 85 Respiratory 16 16 16 Rate Blood Pressure 149/95 135/90 138/74 O2 Sat by Pulse 97 95 98 Oximetry Medical Decision Making - Medical Decision Making I spoke to Dr. Hagan soon after the patient arrived to inform him of what the patient had said. Urine is extremely dirty on the CAT scan did show possible fistula so I spoke with Dr. Hagan and Dr. Hagan will stop by to see the patient in the emergency department - Lab Data Result diagrams: 01/16/20 08:00 01/16/20 08:00 Lab Results 01/16/20 01/16/20 01/16/20 Range/Units 08:00 08:00 08:00 WBC 8.0 (3.8-10.6) k/uL RBC 4.32 (4.30-5.90) m/uL Hgb 13.5 (13.0-17.5) gm/dL Hct 39.9 (39.0-53.0) % MCV 92.4 (80.0-100.0) fL MCH 31.2 (25.0-35.0) pg MCHC 33.8 (31.0-37.0) g/dL RDW 12.8 (11.5-15.5) % Plt Count 268 (150-450) k/uL Neutrophils % 67 % Lymphocytes % 13 % Monocytes % 9 % Eosinophils % 8 % Basophils % 0 % Neutrophils # 5.3 (1.3-7.7) k/uL Lymphocytes # 1.1 (1.0-4.8) k/uL Monocytes # 0.8 (0-1.0) k/uL Eosinophils # 0.6 (0-0.7) k/uL Basophils # 0.0 (0-0.2) k/uL Sodium 137 (137-145) mmol/L Potassium 4.4 (3.5-5.1) mmol/L Chloride 106 (98-107) mmol/L Carbon Dioxide 24 (22-30) mmol/L Anion Gap 7 mmol/L BUN 13 (9-20) mg/dL Creatinine 1.01 (0.66-1.25) mg/dL Est GFR (CKD-EPI)AfAm >90 (>60 ml/min/1.73 sqM) Est GFR (CKD-EPI)NonAf 87 (>60 ml/min/1.73 sqM) Glucose 104 H (74-99) mg/dL Plasma Lactic Acid Benito 0.9 (0.7-2.0) mmol/L Calcium 9.3 (8.4-10.2) mg/dL Total Bilirubin 0.2 (0.2-1.3) mg/dL AST 28 (17-59) U/L ALT 17 (4-49) U/L Alkaline Phosphatase 74 (38-126) U/L Total Protein 6.3 (6.3-8.2) g/dL Albumin 3.4 L (3.5-5.0) g/dL Amylase 39 (30-110) U/L Lipase 79 (23-300) U/L Urine Color Urine Appearance (Clear) Urine RBC (0-5) /hpf Urine WBC (0-5) /hpf Urine WBC Clumps (None) /hpf Ur Squamous Epith Cells (0-4) /hpf Urine Bacteria (None) /hpf 01/16/20 Range/Units 08:48 WBC (3.8-10.6) k/uL RBC (4.30-5.90) m/uL Hgb (13.0-17.5) gm/dL Hct (39.0-53.0) % MCV (80.0-100.0) fL MCH (25.0-35.0) pg MCHC (31.0-37.0) g/dL RDW (11.5-15.5) % Plt Count (150-450) k/uL Neutrophils % % Lymphocytes % % Monocytes % % Eosinophils % % Basophils % % Neutrophils # (1.3-7.7) k/uL Lymphocytes # (1.0-4.8) k/uL Monocytes # (0-1.0) k/uL Eosinophils # (0-0.7) k/uL Basophils # (0-0.2) k/uL Sodium (137-145) mmol/L Potassium (3.5-5.1) mmol/L Chloride (98-107) mmol/L Carbon Dioxide (22-30) mmol/L Anion Gap mmol/L BUN (9-20) mg/dL Creatinine (0.66-1.25) mg/dL Est GFR (CKD-EPI)AfAm (>60 ml/min/1.73 sqM) Est GFR (CKD-EPI)NonAf (>60 ml/min/1.73 sqM) Glucose (74-99) mg/dL Plasma Lactic Acid Benito (0.7-2.0) mmol/L Calcium (8.4-10.2) mg/dL Total Bilirubin (0.2-1.3) mg/dL AST (17-59) U/L ALT (4-49) U/L Alkaline Phosphatase (38-126) U/L Total Protein (6.3-8.2) g/dL Albumin (3.5-5.0) g/dL Amylase (30-110) U/L Lipase (23-300) U/L Urine Color Brown Urine Appearance Turbid (Clear) Urine RBC >182 H (0-5) /hpf Urine WBC >182 H (0-5) /hpf Urine WBC Clumps Many H (None) /hpf Ur Squamous Epith Cells 4 (0-4) /hpf Urine Bacteria Many H (None) /hpf Disposition Clinical Impression: Colovesical fistula Disposition: HOME SELF-CARE Condition: Good Is patient prescribed a controlled substance at d/c from ED?: No Referrals: Woodrow Malagon DO [Primary Care Provider] - 1-2 days
[2020-01-16 08:44] LABS: Basophils % (A) 0 %; Eosinophils # (A) 0.6 k/uL (0-0.7); Eosinophils % (A) 8 %; HCT 39.9 % (39.0-53.0); HGB 13.5 gm/dL (13.0-17.5); Lymphocytes # (A) 1.1 k/uL (1.0-4.8); Lymphocytes % (A) 13 %; MCH 31.2 pg (25.0-35.0); MCHC 33.8 g/dL (31.0-37.0); MCV 92.4 fL (80.0-100.0); Mean Platelet Volume 7.4; Monocytes # (A) 0.8 k/uL (0-1.0); Monocytes % (A) 9 %; Neutrophils # (A) 5.3 k/uL (1.3-7.7); Neutrophils % (A) 67 %; Platelet Count 268 k/uL (150-450); RBC 4.32 m/uL (4.30-5.90); RDW 12.8 % (11.5-15.5)
[2020-01-16] MEDS ORDERED: HYDROmorphone 1 MG/ML 1 ML SYRINGE IVP STA ×3 (08:48→12:22)
[2020-01-16 09:02] LABS: ALT 17 U/L (4-49); AST 28 U/L (17-59); African American GFR (CKD) >90 (>60 ml/min/1.73 sqM); Albumin 3.4 g/dL (3.5-5.0); Alkaline Phosphatase 74 U/L (38-126); Amylase 39 U/L (30-110); Anion Gap 7 mmol/L; Blood Urea Nitrogen 13 mg/dL (9-20); Calcium 9.3 mg/dL (8.4-10.2); Carbon Dioxide 24 mmol/L (22-30); Chloride 106 mmol/L (98-107); Glucose 104 mg/dL (74-99); Non-African American GFR(CKD) 87 (>60 ml/min/1.73 sqM); Potassium 4.4 mmol/L (3.5-5.1); Sodium 137 mmol/L (137-145); Total Bilirubin 0.2 mg/dL (0.2-1.3); Total Protein 6.3 g/dL (6.3-8.2)
[2020-01-16 09:06] LABS: Bacteria,Urine Many /hpf; RBC,Urine >182 /hpf (0-5); Squamous Epithelial Cell,Urine 4 /hpf (0-4); WBC,Urine >182 /hpf (0-5)
[2020-01-16] MEDS ORDERED: diphenhydrAMINE 50 MG/ML 1 ML VIAL IVP STA (09:06)
[2020-01-16] MEDS ORDERED: methylPREDNISolone SOD SUCCI 125 MG/2 ML VIAL IV STA (09:06)
[2020-01-16] MEDS ORDERED: FAMOTIDINE 20 MG/2 ML VIAL IV STA (09:06)
[2020-01-16 09:07] LABS: Color,Urine Brown
[2020-01-16 09:08] LABS: Appearance,Urine Turbid (Clear)
--- NOTE | 2020-01-16 10:07 | CT ---
EXAMINATION TYPE: CT abdomen pelvis w con DATE OF EXAM: 01/16/2020 COMPARISON: 10/10/2019 HISTORY: 49-year-old male S/P colostomy reversal, abdominal pain TECHNIQUE: Contiguous axial scanning of the abdomen and pelvis following administration of 100 ml Iso bong 300 IV contrast. Delayed images through the kidneys and coronal/sagittal reconstructions perform ed. CT DLP: 2060.3 mGycm Automated exposure control for dose reduction was used. FINDINGS: Focal nodularity and linear densities right middle lobe unchanged from 08/07/2019, likely pleural pare nchymal scarring. Heart normal size without pericardial effusion. Scattered mild free intraperitoneal air is present around the liver. No focal liver lesion or biliary ductal dilatation. Portal venous system is patent. Gallbladder, adrenal glands, spleen, and pancreas appear within normal limits. Bilateral renal cysts redemonstrated measuring up to 2.3 cm. No excreting contrast seen from the kidn eys on delayed images. No dilated small bowel or free fluid. Midline laparotomy incision is demonstrated with overlying skin brandy. Tract within the anterior subcutaneous layer of the left lower quadrant with foci of air likely corre sponds to prior colostomy site. Some thickening and foci of air within the rectus abdominis underlyin g the laparotomy incision likely postsurgical change. Distal sigmoid anastomosis is demonstrated in the pelvis. Normal appendix. Moderate fat stranding and hazy density within the lower abdominal and pelvic fat likely postsurgical change. Additional small foci of scattered free air within the pelvis. Borderline size 9 mm right external iliac chain lymph node probably reactive. Otherwise, no mesenteri c or retroperitoneal lymphadenopathy identified. Bladder partially distended. Trace nondependent intraluminal air. Bones: Mild degenerative changes at the hips and SI joints. Moderately advanced degenerative disc dis ease and hypertrophic facet arthropathy mid to lower lumbar spine. Trace grade 1 anterolisthesis L3-L 4. IMPRESSION: 1. NEW MIDLINE LAPAROTOMY INCISION. MILD SCATTERED FREE INTRAPERITONEAL AIR. FOCI OF AIR AND SOFT TIS GAY STRANDING ANTERIOR LEFT LOWER QUADRANT PROBABLY CORRESPONDING TO PRIOR COLOSTOMY SITE, AND SOME T HICKENING AND FOCI OF AIR WITHIN THE RECTUS ABDOMINOUS UNDERLYING THE MIDLINE INCISION. FINDINGS ALL LIKELY POSTSURGICAL. CORRELATE TO TIME SINCE SURGERY. 2. HAZY DENSITY AND FAT STRANDING LOWER ABDOMEN AND PELVIS LIKELY POSTSURGICAL INFLAMMATION. CLINICAL LY CORRELATE. 3. DISTAL SIGMOID END-TO-SIDE ANASTOMOSIS. NO ABSCESS IS IDENTIFIED. HOWEVER, THERE IS A SMALL FOCUS OF AIR WITHIN THE BLADDER LUMEN. DIFFERENTIAL CONSIDERATIONS INCLUDE UNDERLYING CYSTITIS, RECENT BLAD HINA INSTRUMENTATION, AND A SMALL COLOVESICAL FISTULA. CORRELATE WITH URINALYSIS AND PATIENT'S HISTORY .
[2020-01-16] MEDS ORDERED: PIPERACILLIN-TAZOBACTAM 3.375 GM in SODIUM CHLORIDE 0.9% 100 ML IVPB STA (10:35)
[2020-01-16] MEDS ORDERED: SODIUM CHLORIDE 0.9% 1,000 ML IV STA (11:14)
[2020-01-16 12:58] VITALS: BP 138/74; PULSE 85; TEMP 98.5
--- NOTE | 2020-01-16 14:38 | P.GSCN ---
History of Present Illness Consult date: 01/16/20 History of present illness: 49-year-old male that is known to me from recent colostomy reversal. Colostomy reversal was performed 6 days ago. He was discharged from the hospital yesterday in stable condition. He presents to the emergency department with complaints of stool in his urine. He states that prior to his discharge from the hospital he was having normal urinary function and denied any stool or air being passed in his urine. He was having multiple bowel movements prior to his discharge as well. He states that he noticed the stool in his urine when he was trying to have a bowel movement. He denies any significant increase in pain. He denies any fevers, chills, chest pain or shortness of breath. CT of the abdomen and pelvis was performed that does show a small amount of air within the bladder that could be secondary to a possible colovesical fistula or from recent [place] catheter placement. 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 colostomy 10/2019 Past Anesthesia/Blood Transfusion Reactions: Family History of Problems w/ Anesthesia Additional Past Anesthesia/Blood Transfusion Reaction / Comm: Mother's heart stopped during surgery once. Past Psychological History: No Psychological Hx Reported Smoking Status: Current every day smoker Past Alcohol Use History: Rare Past Drug Use History: None Reported - Past Family History Mother Family Medical History: Renal Disease Additional Family Medical History / Comment(s): ESRD, lupus, scleroderma, thin basement membrane disease. Father Family Medical History: Respiratory Disorder Additional Family Medical History / Comment(s): Father of interstitial lung disease at the age of 73 yrs. Medications and Allergies Home Medications Medication Instructions Recorded Confirmed Type Omeprazole 20 mg PO DAILY 01/10/20 01/16/20 History Cyclobenzaprine [Flexeril] 5 mg PO TID PRN #20 tab 01/15/20 01/16/20 Rx HYDROcodone/APAP 10-325MG [[place] 1 tab PO Q6H PRN 01/16/20 01/16/20 History 10-325] Sulfamethox-Tmp 800-160Mg [Bactrim 1 each PO Q12HR #14 tab 01/16/20 Rx DS 800-160 mg] Allergies Allergy/AdvReac Type Severity Reaction Status Date / Time ciprofloxacin [From Cipro] Allergy Anaphylaxis Verified 01/16/20 10:31 cephalexin [From Keflex] AdvReac Nausea & Verified 01/16/20 10:31 Vomiting & Diarrhea Iodinated Contrast Media AdvReac Nausea & Verified 01/16/20 10:31 [Iodinated Contrast- Oral Vomiting and IV Dye] Surgical - Exam Osteopathic Statement: *. No significant issues noted on an osteopathic structural exam other than those noted in the History and Physical/Consult. Vital Signs Temp Pulse Resp BP Pulse Ox 98.2 F 87 16 149/95 97 01/16/20 08:00 01/16/20 08:00 01/16/20 08:00 01/16/20 08:00 01/16/20 08:00 - General well nourished, no distress - Eyes PERRL - ENT no hearing loss - Neck trachea midline - Respiratory normal respiratory effort - Abdomen Soft, appropriate tenderness, nondistended, no rebound, no guarding, incision site is clean, dry and intact - Psychiatric oriented to time, oriented to person, oriented to place Results - Labs 01/16/20 08:00 01/16/20 08:00 Abnormal Lab Results - Last 24 Hours (Table) 01/16/20 01/16/20 Range/Units 08:00 08:48 Glucose 104 H (74-99) mg/dL Albumin 3.4 L (3.5-5.0) g/dL Urine RBC >182 H (0-5) /hpf Urine WBC >182 H (0-5) /hpf Urine WBC Clumps Many H (None) /hpf Urine Bacteria Many H (None) /hpf Diabetes panel 01/16/20 Range/Units 08:00 Sodium 137 (137-145) mmol/L Potassium 4.4 (3.5-5.1) mmol/L Chloride 106 (98-107) mmol/L Carbon Dioxide 24 (22-30) mmol/L BUN 13 (9-20) mg/dL Creatinine 1.01 (0.66-1.25) mg/dL Glucose 104 H (74-99) mg/dL Calcium 9.3 (8.4-10.2) mg/dL AST 28 (17-59) U/L ALT 17 (4-49) U/L Alkaline Phosphatase 74 (38-126) U/L Total Protein 6.3 (6.3-8.2) g/dL Albumin 3.4 L (3.5-5.0) g/dL Calcium panel 01/16/20 Range/Units 08:00 Calcium 9.3 (8.4-10.2) mg/dL Albumin 3.4 L (3.5-5.0) g/dL Pituitary panel 01/16/20 Range/Units 08:00 Sodium 137 (137-145) mmol/L Potassium 4.4 (3.5-5.1) mmol/L Chloride 106 (98-107) mmol/L Carbon Dioxide 24 (22-30) mmol/L BUN 13 (9-20) mg/dL Creatinine 1.01 (0.66-1.25) mg/dL Glucose 104 H (74-99) mg/dL Calcium 9.3 (8.4-10.2) mg/dL Adrenal panel 01/16/20 Range/Units 08:00 Sodium 137 (137-145) mmol/L Potassium 4.4 (3.5-5.1) mmol/L Chloride 106 (98-107) mmol/L Carbon Dioxide 24 (22-30) mmol/L BUN 13 (9-20) mg/dL Creatinine 1.01 (0.66-1.25) mg/dL Glucose 104 H (74-99) mg/dL Calcium 9.3 (8.4-10.2) mg/dL Total Bilirubin 0.2 (0.2-1.3) mg/dL AST 28 (17-59) U/L ALT 17 (4-49) U/L Alkaline Phosphatase 74 (38-126) U/L Total Protein 6.3 (6.3-8.2) g/dL Albumin 3.4 L (3.5-5.0) g/dL Assessment and Plan (1) Colovesical fistula Narrative/Plan: 49-year-old male with concern of colovesical fistula. I discussed the case in depth with the patient and the patient's family at bedside. Due to finding of stool and urine, there is concern for a colovesical fistula. Etiology is uncle ar as the patient did have a recent colostomy reversal and multiple previous episodes of diverticulitis that did create significant inflammatory changes. I discussed the case with urology, Dr. Pearson, as well. We will plan for further evaluation with cystoscopy and visualization of the possible colovesical fistula site. He will be scheduled for this tomorrow morning. This will dictate any next steps in care for the patient. He will be following with me on 01/18/2020 to discuss any further surgical planning. Status: Acute Code(s): N32.1 - VESICOINTESTINAL FISTULA SNOMED Code(s): 34388722
== END 2020-01-16 12:55 | disposition home or self-care (01) ==
LOC: EC 07:58
DX: N32.1 Vesicointestinal fistula (principal); Z98.890 Other specified postprocedural states; K21.9 Gastro-esophageal reflux disease without esophagitis; F17.200 Nicotine dependence, unspecified, uncomplicated; Z88.1 Allergy status to other antibiotic agents; Z91.041 Radiographic dye allergy status; Z79.899 Other long term (current) drug therapy
CPT/HCPCS: 99285; 96365; 96375 ×4; 96376 ×2; 36415; 80053; 82150; 83605; 83690; 85025; 81001; 87040; 87086; 87077; 87186; 74177; J2543; J1200; J2930; J1170; Q9967

== ENCOUNTER 2020-01-17 09:50 | Inpatient (IN) | payer OTHER ==
[2020-01-17] MEDS ORDERED: SODIUM CHLORIDE 0.9% 500 ML 500 ML IV STA (10:09)
[2020-01-17] MEDS ORDERED: HYDROmorphone 0.5 MG/0.5 ML SYRINGE IVP STA ×2 (10:09→15:05)
[2020-01-17 10:44] LABS: Basophils % (A) 0 %; Eosinophils # (A) 0.3 k/uL (0-0.7); Eosinophils % (A) 1 %; HCT 43.4 % (39.0-53.0); HGB 14.2 gm/dL (13.0-17.5); Lymphocytes # (A) 1.4 k/uL (1.0-4.8); Lymphocytes % (A) 8 %; MCH 30.3 pg (25.0-35.0); MCHC 32.7 g/dL (31.0-37.0); MCV 92.7 fL (80.0-100.0); Mean Platelet Volume 6.9; Monocytes # (A) 1.6 k/uL (0-1.0); Monocytes % (A) 9 %; Neutrophils # (A) 14.1 k/uL (1.3-7.7); Neutrophils % (A) 80 %; Platelet Count 367 k/uL (150-450); RBC 4.68 m/uL (4.30-5.90); WBC 17.7 k/uL (3.8-10.6)
[2020-01-17] MEDS ORDERED: PIPERACILLIN-TAZOBACTAM 3.375 GM in SODIUM CHLORIDE 0.9% 100 ML IVPB STA (10:49)
[2020-01-17] MEDS ORDERED: NALOXONE 0.4 MG/ML 1 ML VIAL IV PRN (10:49)
--- NOTE | 2020-01-17 10:49 | ED ---
Abdominal Pain HPI - General Chief Complaint: Abdominal Pain Stated Complaint: rectal bleeding/colostomy reversal problems Time Seen by Provider: 01/17/20 10:07 Source: patient Mode of arrival: ambulatory Limitations: no limitations - History of Present Illness Initial Comments: 49-year-old male presenting today for chief complaint of stool from the penis pain from the rectum x 2-3 days. 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 Patient states he has had stool coming from his penis the past 2 days as well as urine from the rectum. Patient states he's had some blood coming from the rectum. Patient states he can order to the pain he states he was out yesterday when they were to arrange outpatient urology as well as colorectal surgery follow-up patient denies fevers but states that there is also discharged coming from his penis. Remaining review system negative patient denies any chest pain shortness of breath lightheadedness syncope or palpitations. Patient denies any cold into [place]. Patient denies any heavy profuse rectal bleeding. Remaining review of system negative.Upon arrival patient to be in a lot of pain,pacing. - Related Data Home Medications Medication Instructions Recorded Confirmed Omeprazole 20 mg PO DAILY 01/10/20 01/17/20 HYDROcodone/APAP 10-325MG [[place] 1 tab PO Q6H PRN 01/16/20 01/17/20 10-325] Ibuprofen [Motrin Ib] 400 mg PO Q6H PRN 01/17/20 01/17/20 Sulfamethox-Tmp 800-160Mg [Bactrim 1 tab PO Q12HR 01/17/20 01/17/20 DS 800-160 mg] Previous Rx's Medication Instructions Recorded Cyclobenzaprine [Flexeril] 5 mg PO TID PRN #20 tab 01/15/20 Allergies Allergy/AdvReac Type Severity Reaction Status Date / Time ciprofloxacin [From Cipro] Allergy Anaphylaxis Verified 01/17/20 10:41 cephalexin [From Keflex] AdvReac Nausea & Verified 01/17/20 10:41 Vomiting & Diarrhea Iodinated Contrast Media AdvReac Nausea & Verified 01/17/20 10:41 [Iodinated Contrast- Oral Vomiting and IV Dye] Review of Systems ROS Statement: Those systems with pertinent positive or pertinent negative responses have been documented in the HPI. ROS Other: All systems not noted in ROS Statement are negative. 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 colostomy 10/2019 Past Anesthesia/Blood Transfusion Reactions: Family History of Problems w/ Anesthesia Additional Past Anesthesia/Blood Transfusion Reaction / Comment(s): Mother's heart stopped during surgery once. Past Psychological History: No Psychological Hx Reported Smoking Status: Current every day smoker Past Alcohol Use History: Occasional Past Drug Use History: None Reported - Past Family History Mother Family Medical History: Renal Disease Additional Family Medical History / Comment(s): ESRD, lupus, scleroderma, thin basement membrane disease. Father Family Medical History: Respiratory Disorder Additional Family Medical History / Comment(s): Father of interstitial lung disease at the age of 73 yrs. General Exam - General Exam Comments Initial Comments: General: The patient is awake and alert, appears to be in a lot of pain, pacing Eye: +3 mm pupils are equal, round and reactive to light, extra-ocular movements are intact. No nystagmus. There is normal conjunctiva bilaterally. No signs of icterus. Ears, nose, mouth and throat: There are moist mucous membranes and no oral lesions. Neck: The neck is supple, there is no tenderness or JVD. Cardiovascular: There is a regular rate and rhythm. No murmur, rub or gallop is appreciated. Respiratory: Lungs are clear to auscultation, respirations are non-labored, breath sounds are equal. No wheezes, stridor, rales, or rhonchi. Gastrointestinal: Diffusely tender abdomen without masses or organomegaly noted. There is rebound or guarding present. Incision left side of abdomen. Musculoskeletal: Normal ROM, no tenderness. Strength 5/5. Sensation intact. Pulses equal bilaterally 2+. Neurological: A&O x 3. CN II-XII intact grossly, There are no obvious motor or sensory deficits. Coordination appears grossly intact. Speech is normal. Skin: Skin is warm and dry and no rashes or lesions are noted. Psychiatric: Cooperative, appropriate mood & affect, normal judgment. Limitations: no limitations Course Vital Signs 01/17/20 01/17/20 01/17/20 09:57 12:30 13:23 Temperature 97.4 F L 97.9 F Pulse Rate 104 H 79 77 Respiratory 18 18 18 Rate Blood Pressure 147/92 113/77 120/68 O2 Sat by Pulse 98 97 100 Oximetry Medical Decision Making - Medical Decision Making 49-year-old male presented for increasing abdominal pain patient has colovesicul ar fistula. Patient also has no peritoneal is is unclear if this is from recent surgery there is also temperature changes noted of the abdomen this was required yesterday and CT surgery was consult at yesterday and they were to arrange outpatient follow-up. Patient cannot achieve the pain are present to the ER today. Patient has symmetric and leukocytosis today with left shift. Patient lactic acid within normal limits. Patient's hemoglobin stable. Blood pressure stable. Patient given Dilaudid in the emergency department which does not completely resolve slowly decreases the pain. I contacted patient's surgeon Dr. Hagan, who recommended admission until he can arrange transfer to a facility with colorectal and urological services. Patient admitted and was evaluated in the ER by Dr. Hagan.. Zosyn was initiated in the ER as well as IVF. Blood cultures pending. Dr. Simpson agreeablet to care plan and admission. - Lab Data Result diagrams: 01/17/20 10:31 01/17/20 10:31 Lab Results 01/17/20 01/17/20 01/17/20 Range/Units 10:31 10:31 10:31 WBC 17.7 H (3.8-10.6) k/uL RBC 4.68 (4.30-5.90) m/uL Hgb 14.2 (13.0-17.5) gm/dL Hct 43.4 (39.0-53.0) % MCV 92.7 (80.0-100.0) fL MCH 30.3 (25.0-35.0) pg MCHC 32.7 (31.0-37.0) g/dL RDW 13.0 (11.5-15.5) % Plt Count 367 (150-450) k/uL Neutrophils % 80 % Lymphocytes % 8 % Monocytes % 9 % Eosinophils % 1 % Basophils % 0 % Neutrophils # 14.1 H (1.3-7.7) k/uL Lymphocytes # 1.4 (1.0-4.8) k/uL Monocytes # 1.6 H (0-1.0) k/uL Eosinophils # 0.3 (0-0.7) k/uL Basophils # 0.0 (0-0.2) k/uL Sodium 140 (137-145) mmol/L Potassium 4.4 (3.5-5.1) mmol/L Chloride 106 (98-107) mmol/L Carbon Dioxide 27 (22-30) mmol/L Anion Gap 7 mmol/L BUN 18 (9-20) mg/dL Creatinine 1.14 (0.66-1.25) mg/dL Est GFR (CKD-EPI)AfAm 87 (>60 ml/min/1.73 sqM) Est GFR (CKD-EPI)NonAf 76 (>60 ml/min/1.73 sqM) Glucose 102 H (74-99) mg/dL Plasma Lactic Acid [place] 1.0 (0.7-2.0) mmol/L Calcium 10.0 (8.4-10.2) mg/dL Total Bilirubin 0.4 (0.2-1.3) mg/dL AST 34 (17-59) U/L ALT 21 (4-49) U/L Alkaline Phosphatase 75 (38-126) U/L Total Protein 7.1 (6.3-8.2) g/dL Albumin 4.2 (3.5-5.0) g/dL Amylase 44 (30-110) U/L Lipase 36 (23-300) U/L Disposition Clinical Impression: Colovesical fistula, Leukocytosis, Pneumoperitoneum, Intractable abdominal pain Disposition: ADMITTED IP TO THIS [facility] Condition: Serious Is patient prescribed a controlled substance at d/c from ED?: No Time of Disposition: 10:53 Decision to Admit Reason: Admit from EC Decision Date: 01/17/20 Decision Time: 10:53
[2020-01-17] MEDS ORDERED: SODIUM CHLORIDE 0.9% 500 ML 500 ML IV ONE (10:52)
[2020-01-17] MEDS ORDERED: SODIUM CHLORIDE 0.9% 1,000 ML IV ONE (10:52)
[2020-01-17 10:56] LABS: Albumin 4.2 g/dL (3.5-5.0); Potassium 4.4 mmol/L (3.5-5.1); Total Bilirubin 0.4 mg/dL (0.2-1.3); Total Protein 7.1 g/dL (6.3-8.2)
[2020-01-17] MEDS ORDERED: SODIUM CHLORIDE 0.9% 1,000 ML IV SCH (11:00)
[2020-01-17] MEDS ORDERED: HYDROmorphone 1 MG/ML 1 ML SYRINGE IVP STA (11:22)
[2020-01-17 13:24] VITALS: TEMP 97.9
[2020-01-17] MEDS: HYDROmorphone 1 MG/ML 1 ML SYRINGE IVP PRN ×2 (13:38→17:32)
--- NOTE | 2020-01-17 13:48 | P.GSHP ---
History of Present Illness H&P Date: 01/17/20 49-year-old male presents to the emergency department with worsening lower abdominal pain. He did have a colostomy reversal approximately 7 days ago. He did present to the emergency department yesterday with suspicion of colovesical fistula formation. He states that over the past day his pain has increased and he is noticing some blood in his urine and blood per rectum. Leukocytosis of 17,000. Pain was improved with IV narcotics. No other complaints at this time. 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 colostomy 10/2019 Past Anesthesia/Blood Transfusion Reactions: Family History of Problems w/ Anesthesia Additional Past Anesthesia/Blood Transfusion Reaction / Comment(s): Mother's heart stopped during surgery once. Past Psychological History: No Psychological Hx Reported Smoking Status: Current every day smoker Past Alcohol Use History: Occasional Past Drug Use History: None Reported - Past Family History Mother Family Medical History: Renal Disease Additional Family Medical History / Comment(s): ESRD, lupus, scleroderma, thin basement membrane disease. Father Family Medical History: Respiratory Disorder Additional Family Medical History / Comment(s): Father of interstitial lung disease at the age of 73 yrs. Medications and Allergies Home Medications Medication Instructions Recorded Confirmed Type Omeprazole 20 mg PO DAILY 01/10/20 01/17/20 History Cyclobenzaprine [Flexeril] 5 mg PO TID PRN #20 tab 01/15/20 01/17/20 Rx HYDROcodone/APAP 10-325MG [[place] 1 tab PO Q6H PRN 01/16/20 01/17/20 History 10-325] Ibuprofen [Motrin Ib] 400 mg PO Q6H PRN 01/17/20 01/17/20 History Sulfamethox-Tmp 800-160Mg [Bactrim 1 tab PO Q12HR 01/17/20 01/17/20 History DS 800-160 mg] Allergies Allergy/AdvReac Type Severity Reaction Status Date / Time ciprofloxacin [From Cipro] Allergy Anaphylaxis Verified 01/17/20 10:41 cephalexin [From Keflex] AdvReac Nausea & Verified 01/17/20 10:41 Vomiting & Diarrhea Iodinated Contrast Media AdvReac Nausea & Verified 01/17/20 10:41 [Iodinated Contrast- Oral Vomiting and IV Dye] Surgical - Exam Osteopathic Statement: *. No significant issues noted on an osteopathic structural exam other than those noted in the History and Physical/Consult. Vital Signs Temp Pulse Resp BP Pulse Ox 97.4 F L 104 H 18 147/92 98 01/17/20 09:57 01/17/20 09:57 01/17/20 09:57 01/17/20 09:57 01/17/20 09:57 - General well nourished, no distress - Eyes PERRL - ENT normal mucosa - Neck trachea midline - Respiratory normal respiratory effort - Abdomen Soft, appropriate tenderness, nondistended, no rebound, guarding, midline incision clean, dry and intact - Psychiatric oriented to time, oriented to person, oriented to place Results - Labs 01/17/20 10:31 01/17/20 10:31 Abnormal Lab Results - Last 24 Hours (Table) 01/17/20 01/17/20 Range/Units 10:31 10:31 WBC 17.7 H (3.8-10.6) k/uL Neutrophils # 14.1 H (1.3-7.7) k/uL Monocytes # 1.6 H (0-1.0) k/uL Glucose 102 H (74-99) mg/dL Diabetes panel 01/17/20 Range/Units 10:31 Sodium 140 (137-145) mmol/L Potassium 4.4 (3.5-5.1) mmol/L Chloride 106 (98-107) mmol/L Carbon Dioxide 27 (22-30) mmol/L BUN 18 (9-20) mg/dL Creatinine 1.14 (0.66-1.25) mg/dL Glucose 102 H (74-99) mg/dL Calcium 10.0 (8.4-10.2) mg/dL AST 34 (17-59) U/L ALT 21 (4-49) U/L Alkaline Phosphatase 75 (38-126) U/L Total Protein 7.1 (6.3-8.2) g/dL Albumin 4.2 (3.5-5.0) g/dL Calcium panel 01/17/20 Range/Units 10:31 Calcium 10.0 (8.4-10.2) mg/dL Albumin 4.2 (3.5-5.0) g/dL Pituitary panel 01/17/20 Range/Units 10:31 Sodium 140 (137-145) mmol/L Potassium 4.4 (3.5-5.1) mmol/L Chloride 106 (98-107) mmol/L Carbon Dioxide 27 (22-30) mmol/L BUN 18 (9-20) mg/dL Creatinine 1.14 (0.66-1.25) mg/dL Glucose 102 H (74-99) mg/dL Calcium 10.0 (8.4-10.2) mg/dL Adrenal panel 01/17/20 Range/Units 10:31 Sodium 140 (137-145) mmol/L Potassium 4.4 (3.5-5.1) mmol/L Chloride 106 (98-107) mmol/L Carbon Dioxide 27 (22-30) mmol/L BUN 18 (9-20) mg/dL Creatinine 1.14 (0.66-1.25) mg/dL Glucose 102 H (74-99) mg/dL Calcium 10.0 (8.4-10.2) mg/dL Total Bilirubin 0.4 (0.2-1.3) mg/dL AST 34 (17-59) U/L ALT 21 (4-49) U/L Alkaline Phosphatase 75 (38-126) U/L Total Protein 7.1 (6.3-8.2) g/dL Albumin 4.2 (3.5-5.0) g/dL Assessment and Plan Plan: 49-year-old male with colovesical fistula I had a long discussion with the patient about his current case. There is a large suspicion of a colovesical fistula and with leukocytosis today, there is concern of developing the urinary infection. Due to the colovesical fistula and recent colostomy reversal and possibility of requiring bladder repair, the patient will require tertiary care center for definitive care. I did explain this to the patient and have discussed the case in detail with Dr. Huertas, colorectal surgeon, at [facility]. He is willing to accept the patient for evaluation and further care. The patient is agreeable with this plan. We will plan for transfer.
--- NOTE | 2020-01-17 13:54 | P.DS ---
Providers Date of admission: 01/17/20 10:49 Attending physician: Monae Hagan DO Primary care physician: [facility] Course: 49-year-old male status post colostomy reversal 7 days ago resents with likely colovesical fistula. He was supposed to present to urology today for cystoscopy for further evaluation, however he canceled the appointment due to hematuria and increased pain. He presented to the emergency department with these complaints. He is found to have a leukocytosis of 17. There is suspicion of colovesical fistula due to these findings. Colovesical fistula is possible secondary to multiple episodes of diverticulitis including perforated diverticulitis that required Martin's procedure. The case was discussed in detail with the patient and with colorectal surgery at [facility]. Plan is for transfer to [facility] for further definitive treatment with colorectal surgery. Assessment: Abdomen: Soft, appropriate tenderness, nondistended, no rebound, no guarding, midline incision clean, dry and intact with brandy in place Patient Condition at Discharge: Serious Plan - Discharge Summary New Discharge Prescriptions: No Action Omeprazole 20 mg PO DAILY Cyclobenzaprine [Flexeril] 5 mg PO TID PRN #20 tab PRN Reason: Muscle Spasm HYDROcodone/APAP 10-325MG [[place] 10-325] 1 tab PO Q6H PRN PRN Reason: Pain Ibuprofen [Motrin Ib] 400 mg PO Q6H PRN PRN Reason: Pain Sulfamethox-Tmp 800-160Mg [Bactrim DS 800-160 mg] 1 tab PO Q12HR Discharge Medication List Omeprazole 20 mg PO DAILY 01/10/20 [History] Cyclobenzaprine [Flexeril] 5 mg PO TID PRN #20 tab 01/15/20 [Rx] HYDROcodone/APAP 10-325MG [[place] 10-325] 1 tab PO Q6H PRN 01/16/20 [History] Ibuprofen [Motrin Ib] 400 mg PO Q6H PRN 01/17/20 [History] Sulfamethox-Tmp 800-160Mg [Bactrim DS 800-160 mg] 1 tab PO Q12HR 01/17/20 [History]
[2020-01-17] MEDS ORDERED: NICOTINE 14MG/24HR PATCH TRANSDERM STA (15:09)
[2020-01-17 15:55] VITALS: BP 114/76; PULSE 69; RESP 20
== END 2020-01-17 17:52 | disposition short-term general hospital (02) | DRG 699 ==
LOC: EC 09:50 → 4SSUR 10:49 → UNDOADMIN 10:49 → 4SSUR 11:09
PROVIDERS: ADMIT Surgery; ATTEND Surgery
DX: N32.1 Vesicointestinal fistula (principal); K62.5 Hemorrhage of anus and rectum; N39.0 Urinary tract infection, site not specified; N02.9 Recurrent and persistent hematuria with unspecified morphologic changes; F17.210 Nicotine dependence, cigarettes, uncomplicated; I10 Essential (primary) hypertension; Z88.1 Allergy status to other antibiotic agents; Z91.041 Radiographic dye allergy status; G35 Multiple sclerosis; Z82.0 Family history of epilepsy and other diseases of the nervous system; Z98.890 Other specified postprocedural states
CPT/HCPCS: 36415; 51798; 80053; 82150; 83605; 83690; 85025

== ENCOUNTER 2020-02-02 13:40 | Emergency (ER) | payer OTHER ==
[2020-02-02 13:52] VITALS: BP 96/66; PULSE 98; RESP 18; TEMP 97.8
--- NOTE | 2020-02-02 14:19 | ED ---
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 Patient states he had a colostomy placed at that time. Patient states he noted some tenderness to his left calf and some soreness when he walks so his doctor sent him to get an ultrasound the ultrasound showed a DVT from the popliteal to the posterior tibial but no higher. Patient denies any difficulty breathing or chest pain. Patient denies any other problems at this time. - Related Data Home Medications Medication Instructions Recorded Confirmed Omeprazole 20 mg PO DAILY 01/10/20 01/17/20 HYDROcodone/APAP 10-325MG [[place] 1 tab PO Q6H PRN 01/16/20 01/17/20 10-325] Ibuprofen [Motrin Ib] 400 mg PO Q6H PRN 01/17/20 01/17/20 Sulfamethox-Tmp 800-160Mg [Bactrim 1 tab PO Q12HR 01/17/20 01/17/20 DS 800-160 mg] Previous Rx's Medication Instructions Recorded Cyclobenzaprine [Flexeril] 5 mg PO TID PRN #20 tab 01/15/20 Apixaban [Eliquis Starter Pack 0 mg PO DIRECTED 30 Days #1 pack 02/02/20 (for VTE)] Allergies Allergy/AdvReac Type Severity Reaction Status Date / Time ciprofloxacin [From Cipro] Allergy Anaphylaxis Verified 01/17/20 10:41 cephalexin [From Keflex] AdvReac Nausea & Verified 01/17/20 10:41 Vomiting & Diarrhea Iodinated Contrast Media AdvReac Nausea & Verified 01/17/20 10:41 [Iodinated Contrast- Oral Vomiting and IV Dye] Review of Systems ROS Statement: Those systems with pertinent positive or pertinent negative responses have been documented in the HPI. ROS Other: All systems not noted in ROS Statement are negative. 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 colostomy 10/2019 Past Anesthesia/Blood Transfusion Reactions: Family History of Problems w/ Anesthesia Additional Past Anesthesia/Blood Transfusion Reaction / Comment(s): Mother's heart stopped during surgery once. Past Psychological History: No Psychological Hx Reported Past Alcohol Use History: Occasional - Past Family History Mother Family Medical History: Renal Disease Additional Family Medical History / Comment(s): ESRD, lupus, scleroderma, thin basement membrane disease. Father Family Medical History: Respiratory Disorder Additional Family Medical History / Comment(s): Father of interstitial lung disease at the age of 73 yrs. General Exam - General Exam Comments Initial Comments: GENERAL: Patient is well-developed and well-nourished. Patient is nontoxic and well- hydrated and is in mild distress. ENT: Neck is soft and supple. No significant lymphadenopathy is noted. Oropharynx is clear. Moist mucous membranes. EYES: The sclera were anicteric and conjunctiva were pink and moist. Extraocular movements were intact and pupils were equal round and reactive to light. Eyelids were unremarkable. PULMONARY: Unlabored respirations. Good breath sounds bilaterally. No audible rales rhonchi or wheezing was noted. CARDIOVASCULAR: There is a regular rate and rhythm without any murmurs gallops or rubs. ABDOMEN: Recent surgical are appears to be healing without problem. Patient has a colostomy. SKIN: Skin is clear with no lesions or rashes and otherwise unremarkable. NEUROLOGIC: Patient is alert and oriented x3. Cranial nerves II through XII are grossly intact. Motor and sensory are also intact. Normal speech, volume and content. Symmetrical smile. MUSCULOSKELETAL: Patient's left calf is tender to palpation. There is no obvious swelling to the leg there is no obvious cord felt. LYMPHATICS: No significant lymphadenopathy is noted PSYCHIATRIC: Normal psychiatric evaluation. Limitations: no limitations Course Vital Signs 02/02/20 13:47 Temperature 97.8 F Pulse Rate 98 Respiratory 18 Rate Blood Pressure 96/66 O2 Sat by Pulse 97 Oximetry Medical Decision Making - Medical Decision Making Patient be started on eliquis follow-up with his primary medical care doctor to investigate the cause of the clots. Disposition Clinical Impression: DVT (deep venous thrombosis) Disposition: HOME SELF-CARE Prescriptions: Apixaban [Eliquis Starter Pack (for VTE)] 0 mg PO DIRECTED 30 Days #1 pack Is patient prescribed a controlled substance at d/c from ED?: No Referrals: Woodrow Malagon DO [Primary Care Provider] - 1-2 days Time of Disposition: 14:17
== END 2020-02-02 14:25 | disposition home or self-care (01) ==
LOC: EC 13:40
DX: I82.432 Acute embolism and thrombosis of left popliteal vein (principal); I82.442 Acute embolism and thrombosis of left tibial vein; Z93.3 Colostomy status; K21.9 Gastro-esophageal reflux disease without esophagitis; Z88.1 Allergy status to other antibiotic agents; Z91.041 Radiographic dye allergy status; Z79.899 Other long term (current) drug therapy
CPT/HCPCS: 99283

== ENCOUNTER 2022-01-21 03:49 | Emergency (ER) | payer OTHER ==
[2022-01-21 04:32] VITALS: TEMP 97.7
[2022-01-21] MEDS ORDERED: SODIUM CHLORIDE 0.9% 1,000 ML IV STA (07:33)
[2022-01-21] MEDS ORDERED: MORPHINE SULFATE 4 MG/ML SYRINGE IVP STA (07:35)
[2022-01-21] MEDS ORDERED: methylPREDNISolone SOD SUCCI 125 MG/2 ML VIAL IV STA (07:35)
[2022-01-21] MEDS ORDERED: FAMOTIDINE 20 MG/2 ML VIAL IV STA (07:35)
[2022-01-21] MEDS ORDERED: diphenhydrAMINE 50 MG/ML 1 ML VIAL IVP STA (07:35)
[2022-01-21 08:20] LABS: Basophils % (A) 0 %; Eosinophils % (A) 0 %; HCT 49.4 % (39.0-53.0); HGB 16.3 gm/dL (13.0-17.5); Lymphocytes % (A) 7 %; MCH 31.9 pg (25.0-35.0); MCV 96.7 fL (80.0-100.0); Mean Platelet Volume 7.1; Monocytes # (A) 0.3 k/uL (0-1.0); Monocytes % (A) 2 %; Neutrophils # (A) 12.5 k/uL (1.3-7.7); Neutrophils % (A) 90 %; Platelet Count 251 k/uL (150-450); RBC 5.11 m/uL (4.30-5.90); RDW 13.8 % (11.5-15.5); WBC 13.9 k/uL (3.8-10.6)
[2022-01-21 08:22] LABS: Partial Thromboplastin Time 22.5 sec (22.0-30.0); Prothrombin Time 10.8 sec (9.0-12.0)
[2022-01-21 08:24] LABS: Albumin 4.4 g/dL (3.5-5.0); Calcium 9.3 mg/dL (8.4-10.2); Potassium 4.6 mmol/L (3.5-5.1); Total Bilirubin 0.6 mg/dL (0.2-1.3); Total Protein 7.9 g/dL (6.3-8.2)
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
[2022-01-21 10:05] VITALS: BP 138/76; PULSE 90; RESP 18
[2022-01-21] MEDS ORDERED: methocarbamoL 750 MG TAB PO STA (10:11)
== END 2022-01-21 11:08 | disposition home or self-care (01) ==
LOC: EC 03:49
DX: M25.512 Pain in left shoulder (principal); R07.89 Other chest pain; F10.129 Alcohol abuse with intoxication, unspecified; I10 Essential (primary) hypertension; K21.9 Gastro-esophageal reflux disease without esophagitis; F17.200 Nicotine dependence, unspecified, uncomplicated; Y90.5 Blood alcohol level of 100-119 mg/100 ml; Z79.82 Long term (current) use of aspirin; Z79.899 Other long term (current) drug therapy; V48.5XXA Car driver injured in noncollision transport accident in traffic accident, initial encounter; Y92.410 Unspecified street and highway as the place of occurrence of the external cause
CPT/HCPCS: 36415; 93005; 86900; 86901; 80053; 84484; 85025; 85610; 85730; 86850; 72170; 73030; 71045; 72129; 72125; 72132; 70450; 71260; 74177; 99284; 96374; 96375 ×3; 96361; G0480; J2270; J1200; J2930; Q9967; 80320